=== PATIENT | female | born 1990 | race American Indian/Alaskan Native ===

== ENCOUNTER 2017-07-30 11:26 | Day surgery (SDC) | payer MEDICAID ==
[~2017-07-30 11:26] MED LIST: AK-Dilate ONE; AK-Dilate OS ONE; IOPIDINE ONE; IOPIDINE OS ONE; MYDRIACYL ONE; MYDRIACYL OS ONE
[2017-07-30] MEDS ORDERED: AK-Dilate OS ONE (11:54)
[2017-07-30] MEDS ORDERED: MYDRIACYL OS ONE (11:54)
[2017-07-30] MEDS ORDERED: IOPIDINE OS ONE ×2 (11:54→12:51)
[2017-07-30 14:19] VITALS: BP 120/64
== END 2017-07-30 12:58 | disposition home or self-care (01) ==
LOC: OR 11:26
PROVIDERS: ATTEND Ophthalmology
DX: H26.492 Other secondary cataract, left eye (principal)
CPT/HCPCS: 82962

== ENCOUNTER 2018-02-13 12:53 | Inpatient (IN) | payer MEDICAID ==
[2018-02-13 14:07] LABS: Bilirubin,Urine NEG (Negative); Blood,Urine NEG (Negative); Color,Urine Yellow (Yellow); Urobilinogen,Urine < 2.0 mg/dL (<2.0)
[2018-02-13 14:08] LABS: HCG Qualitative,Urine Negative (Negative)
[2018-02-13 14:10] LABS: Hemoglobin 10.1 gm/dl (10.1-14.3); Mean Corpuscular HGB Conc 33 % (30-34); Mean Corpuscular Hemoglobin 27 pg (28-32); Mean Corpuscular Volume 84 fl (79-97); Platelet Count 221 K/mm3 (140-440); Red Blood Count 3.69 M/mm3 (3.65-5.03); Red Cell Distribution Width 14.7 % (13.2-15.2)
[2018-02-13 14:15] LABS: Alanine Aminotransferase 13 units/L (7-56); Albumin 2.1 g/dL (3.9-5); BUN/Creatinine Ratio 9; Blood Urea Nitrogen 27 mg/dL (7-17); Hemolysis Index 14
[2018-02-13] MEDS ORDERED: ZOFRAN ONE (15:24)
[2018-02-13] MEDS ORDERED: ZOFRAN IV ONE (15:39)
[2018-02-13] MEDS ORDERED: REGLAN IV ONE (15:39)
[2018-02-13] MEDS ORDERED: NACL 0.9% 1000 ML 1,000 ML IV ONE (15:39)
[2018-02-13] MEDS ORDERED: DILAUDID IV ONE (15:39)
[2018-02-13] MEDS ORDERED: BENADRYL IV ONE (15:39)
--- NOTE | 2018-02-13 15:45 | Emergency Department Report ---
ED N/V/D HPI - General Chief complaint: Nausea/Vomiting/Diarrhea Stated complaint: N&V Time Seen by Provider: 02/13/18 15:32 Source: patient, old records reviewed Mode of arrival: Ambulatory Limitations: No Limitations - History of Present Illness Initial comments: 27-year-old female with a past medical history of juvenile diabetes/insulin- dependent, hypertension, chronic renal insufficiency, gastroparesis, and seizures presents also complaining of nausea, vomiting, generalized abdominal pain with by mouth intolerance since this morning. pt has generalized crampy and aching abdominal pain radiating 8/10 in intensity. Pain is constant, worse with palpation, no alleviating factors. No diarrhea reported. Patient had coffee-ground emesis in the ED and denies melena, hematochezia, or allen hematemesis. Patient feels similar to previous gastroparesis episodes in the past. No fever or dysuria reported. Patient's director customer is Dr. Adams. She does have a primary care doctor. She does see incubator operator - Related Data Home Medications Medication Instructions Recorded Confirmed Last Taken Cholecalciferol (Vitamin D3) 50,000 unit PO QWEEK 07/22/17 02/13/18 1 Day Ago [Vitamin D3 10,000 unit] ~07/22/17 Furosemide [Lasix TAB] 40 mg PO DAILY 02/13/18 02/13/18 Unknown Insulin NPH Human Isophane 25 - 30 unit SQ BID 02/13/18 02/13/18 Unknown [Humulin N] hydrALAZINE [Apresoline] 25 mg PO TID 02/13/18 02/13/18 Unknown Allergies Allergy/AdvReac Type Severity Reaction Status Date / Time shellfish derived Allergy Severe Angioedema Verified 07/30/17 14:13 ED Review of Systems ROS: Stated complaint: N&V Other details as noted in HPI Comment: All other systems reviewed and negative ED Past Medical Hx - Past Medical History Previous Medical History?: Yes Hx Hypertension: Yes Hx Diabetes: Yes (Juvenille diabetes) Hx Renal Disease: Yes (Stage 2) Hx Seizures: Yes Hx HIV: No - Surgical History Past Surgical History?: Yes Additional Surgical History: Cataract surgery-bilat. 2013 - Social History Smoking Status: Never Smoker Substance Use Type: Prescribed - Medications Home Medications: Home Medications Medication Instructions Recorded Confirmed Last Taken Type Cholecalciferol (Vitamin D3) 50,000 unit PO QWEEK 07/22/17 02/13/18 1 Day Ago History [Vitamin D3 10,000 unit] ~07/22/17 Furosemide [Lasix TAB] 40 mg PO DAILY 02/13/18 02/13/18 Unknown History Insulin NPH Human Isophane 25 - 30 unit SQ BID 02/13/18 02/13/18 Unknown History [Humulin N] hydrALAZINE [Apresoline] 25 mg PO TID 02/13/18 02/13/18 Unknown History ED Physical Exam - General Limitations: No Limitations - Other Other exam information: General: Crying, actively vomiting Head exam: Atraumatic, normocephalic Eyes exam: Normal appearance ENT: Dry mucous members Neck exam: Normal inspection, full range of motion, no meningismus nontender Respiratory exam: Clear to auscultation bilateral, no wheezes, rales, crackles Cardiovascular: Tachycardic regular rhythm Abdomen: Soft, nondistended, generalized tenderness greatest in the upper abdominal area. Bowel sounds normal. Active vomiting coffee grounds noted Extremity: Full range of motion normal inspection no deformity Back: Normal Inspection, full range of motion, no tenderness Neurologic: Alert, oriented x3, cranial nerves intact, no motor or sensory deficit Skin: Warm, dry, intact ED Course Vital Signs 02/13/18 02/13/18 02/13/18 13:24 17:03 17:10 Temperature 98.8 F Pulse Rate 120 H 111 H 117 H Respiratory 18 13 14 Rate Blood Pressure 149/100 201/122 Blood Pressure [Left] O2 Sat by Pulse 98 98 Oximetry 02/13/18 02/13/18 02/13/18 17:19 17:20 17:30 Temperature Pulse Rate 109 H 110 H Respiratory 18 16 17 Rate Blood Pressure 193/131 191/121 Blood Pressure [Left] O2 Sat by Pulse 92 98 Oximetry 02/13/18 02/13/18 02/13/18 17:40 17:50 18:00 Temperature Pulse Rate 110 H 109 H 108 H Respiratory 17 17 16 Rate Blood Pressure 191/121 190/121 188/123 Blood Pressure [Left] O2 Sat by Pulse 98 97 97 Oximetry 02/13/18 02/13/18 02/13/18 18:10 18:20 18:30 Temperature Pulse Rate 106 H 111 H 105 H Respiratory 17 17 16 Rate Blood Pressure 188/123 192/126 185/123 Blood Pressure [Left] O2 Sat by Pulse 97 93 97 Oximetry 02/13/18 02/13/18 02/13/18 18:40 18:50 19:00 Temperature Pulse Rate 109 H 107 H 107 H Respiratory 19 16 17 Rate Blood Pressure 185/123 188/125 192/126 Blood Pressure [Left] O2 Sat by Pulse 97 97 97 Oximetry 02/13/18 02/13/18 02/13/18 19:10 19:20 19:30 Temperature Pulse Rate 104 H 105 H 106 H Respiratory 16 17 17 Rate Blood Pressure 192/126 188/124 187/125 Blood Pressure [Left] O2 Sat by Pulse 98 98 98 Oximetry 02/13/18 02/13/18 02/13/18 19:40 19:50 20:00 Temperature Pulse Rate 107 H 113 H 111 H Respiratory 16 13 13 Rate Blood Pressure 187/125 186/116 178/107 Blood Pressure [Left] O2 Sat by Pulse 98 95 97 Oximetry 02/13/18 02/13/18 02/13/18 20:10 20:20 20:21 Temperature Pulse Rate 116 H 112 H Respiratory 14 17 18 Rate Blood Pressure 178/107 181/111 Blood Pressure [Left] O2 Sat by Pulse 95 97 98 Oximetry 02/13/18 02/13/18 02/13/18 20:30 20:40 20:50 Temperature Pulse Rate 120 H 123 H 123 H Respiratory 12 14 14 Rate Blood Pressure 153/97 153/97 181/115 Blood Pressure [Left] O2 Sat by Pulse 98 98 98 Oximetry 02/13/18 02/13/18 02/13/18 21:00 21:10 21:11 Temperature Pulse Rate 121 H 121 H 118 H Respiratory 13 12 16 Rate Blood Pressure 157/104 157/104 Blood Pressure 157/104 [Left] O2 Sat by Pulse 96 98 98 Oximetry 02/13/18 02/13/18 21:20 21:30 Temperature Pulse Rate 118 H 119 H Respiratory 13 13 Rate Blood Pressure 149/90 155/89 Blood Pressure [Left] O2 Sat by Pulse 98 98 Oximetry - Consultations Consultation #1: 02/13/18 16:[address] Patel national accounts sales for Dr. Pichardo. Agrees to consult on patient for acute on chronic renal insufficiency. - EJ/Peripheral Line Neck L Time Out Performed: Yes Indications: nurses unable to establis Skin Cleansed in Sterile Fashion: Yes Size: 20 Dressing Placed: Tegaderm, tape Patient Tolerated Procedure: well Additional Comments: failed attempt at right EJ initially ED Medical Decision Making - Lab Data Result diagrams: 02/14/18 07:42 02/15/18 05:32 Lab Results 02/13/18 02/13/18 02/13/18 Range/Units 13:36 13:36 Unknown WBC 3.9 L (4.5-11.0) K/mm3 RBC 3.69 (3.65-5.03) M/mm3 Hgb 10.1 (10.1-14.3) gm/dl Hct 31.0 (30.3-42.9) % MCV 84 (79-97) fl MCH 27 L (28-32) pg MCHC 33 (30-34) % RDW 14.7 (13.2-15.2) % Plt Count 221 (140-440) K/mm3 Lymph % (Auto) [place]el [place] % (Auto) Heel [place]acker Eos % (Auto) [place]el [place] Baso % (Auto) Heel Packer Lymph # Heel Packer [place] # Heel Packer Eos # Heel Packer Baso # Heel Packer Seg Neutrophils % Heel Packer Seg Neutrophils # Heel Packer Sodium 145 (137-145) mmol/L Potassium 3.4 L (3.6-5.0) mmol/L Chloride 110.9 H (98-107) mmol/L Carbon Dioxide 20 L (22-30) mmol/L Anion Gap 18 mmol/L BUN 27 H (7-17) mg/dL Creatinine 3.0 H (0.7-1.2) mg/dL Estimated GFR 23 ml/min BUN/Creatinine Ratio 9 % Glucose 116 H (65-100) mg/dL Calcium 8.0 L (8.4-10.2) mg/dL Total Bilirubin < 0.20 (0.1-1.2) mg/dL AST 13 (5-40) units/L ALT 13 (7-56) units/L Alkaline Phosphatase 76 (35-129) units/L Total Protein 5.1 L (6.3-8.2) g/dL Albumin 2.1 L (3.9-5) g/dL Albumin/Globulin Ratio 0.7 % Lipase (13-60) units/L Urine Color Yellow (Yellow) Urine Turbidity Clear (Clear) Urine pH 7.0 (5.0-7.0) Ur Specific [place] 1.011 (1.003-1.030) Urine Protein 100 mg/dl (Negative) mg/dL Urine Glucose (UA) 150 (Negative) mg/dL Urine Ketones Neg (Negative) mg/dL Urine Blood Neg (Negative) Urine Nitrite Neg (Negative) Urine Bilirubin Neg (Negative) Urine Urobilinogen < 2.0 (<2.0) mg/dL Ur Leukocyte Esterase Neg (Negative) Urine WBC (Auto) 1.0 (0.0-6.0) /HPF Urine RBC (Auto) 3.0 (0.0-6.0) /HPF U Epithel Cells (Auto) < 1.0 (0-13.0) /HPF Urine HCG, Qual Negative (Negative) 02/13/18 Range/Units Unknown WBC (4.5-11.0) K/mm3 RBC (3.65-5.03) M/mm3 Hgb (10.1-14.3) gm/dl Hct (30.3-42.9) % MCV (79-97) fl MCH (28-32) pg MCHC (30-34) % RDW (13.2-15.2) % Plt Count (140-440) K/mm3 Lymph % (Auto) [place] % (Auto) Eos % (Auto) Baso % (Auto) Lymph # [place] # Eos # Baso # Seg Neutrophils % Seg Neutrophils # Sodium (137-145) mmol/L Potassium (3.6-5.0) mmol/L Chloride (98-107) mmol/L Carbon Dioxide (22-30) mmol/L Anion Gap mmol/L BUN (7-17) mg/dL Creatinine (0.7-1.2) mg/dL Estimated GFR ml/min BUN/Creatinine Ratio % Glucose (65-100) mg/dL Calcium (8.4-10.2) mg/dL Total Bilirubin (0.1-1.2) mg/dL AST (5-40) units/L ALT (7-56) units/L Alkaline Phosphatase (35-129) units/L Total Protein (6.3-8.2) g/dL Albumin (3.9-5) g/dL Albumin/Globulin Ratio % Lipase 22 (13-60) units/L Urine Color (Yellow) Urine Turbidity (Clear) Urine pH (5.0-7.0) Ur Specific [place] (1.003-1.030) Urine Protein (Negative) mg/dL Urine Glucose (UA) (Negative) mg/dL Urine Ketones (Negative) mg/dL Urine Blood (Negative) Urine Nitrite (Negative) Urine Bilirubin (Negative) Urine Urobilinogen (<2.0) mg/dL Ur Leukocyte Esterase (Negative) Urine WBC (Auto) (0.0-6.0) /HPF Urine RBC (Auto) (0.0-6.0) /HPF U Epithel Cells (Auto) (0-13.0) /HPF Urine HCG, Qual (Negative) - Medical Decision Making gastroparesis likely cause of symptoms No fever leukocytosis Negative UA Negative ct abd pelvis results pending at dispo Coffee-ground emesis Treated with Protonix IV, Zofran, Reglan, Benadryl, normal saline, and Dilaudid (delay due to lack of Iv access) hypokalemia IV KCL ordered acute on chronic renal failure. Nephro conulted - Differential Diagnosis gastroparesis, pancreatitis, cholecystitis/biliary colic, UTI Critical Care Time: No Critical care attestation.: If time is entered above; I have spent that time in minutes in the direct care of this critically ill patient, excluding procedure time. ED Disposition Clinical Impression: Gastroparesis, Acute on chronic renal insufficiency, Hypokalemia HTN (hypertension) Qualifiers: Hypertension type: essential hypertension Qualified Code(s): I10 - Essential ( primary) hypertension Disposition: OP ADMIT IP TO THIS HOSP Is pt being admited?: Yes Condition: Stable Time of Disposition: 16:36 (Dr Hunter/hosp)
[2018-02-13] MEDS ORDERED: PROTONIX IV ONE (16:00)
[2018-02-13] MEDS: KCL 10MEQ/100ML 10 MEQ/100 ML BAG IV SCH ×2 (17:13→20:53)
--- NOTE | 2018-02-13 17:17 | Cat Scan Report ---
FINAL REPORT EXAM: CT ABDOMEN PELVIS WO CON HISTORY: abd pain n,v hx of renal insuf, gastroparesis TECHNIQUE: Standard unenhanced CT of the abdomen and pelvis. Coronal and sagittal reconstruction was also performed. PRIORS: None. FINDINGS: There is prominence of the right renal collecting system to the distal ureter. However, no obstructing calculus or mass is seen. No bladder calculus is noted. Patient may have had a recently passed calculus with residual edema at the right ureterovesical junction. Within the abdomen, the liver, spleen, pancreas, adrenal glands, and left kidney are unremarkable. Gallstones layer in the gallbladder noted. No evidence for retroperitoneal or pelvic lymphadenopathy is seen. The bowel loops have normal caliber. No soft tissue mass, fluid collection, inflammatory change, or free air is seen within the abdomen or pelvis. The appendix is normal. Within the pelvis, the bladder is unremarkable. The uterus is normal. No evidence for mass or lymphadenopathy is seen in the pelvis. Images through the upper abdomen include the lung bases which demonstrate linear atelectasis or fibrosis in the right middle lobe and lingula anteriorly. There is a pericardial effusion. Bony structures show no focal abnormalities and are intact. IMPRESSION: 1. Prominence of the right renal collecting system is noted which may be due to recently passed calculus or residual edema in the right ureterovesical junction. However, no calculus is seen in the bladder. 2. Cholelithiasis 3. Linear fibrosis or atelectasis right middle lobe and lingula 4. Pericardial effusion.
[2018-02-13] MEDS ORDERED: TYLENOL PO PRN (19:26)
[2018-02-13] MEDS ORDERED: DILAUDID IV PRN (19:26)
--- NOTE | 2018-02-13 19:26 | History and Physical Report ---
History of Present Illness Date of examination: 02/13/18 Date of admission: 02/13/18 Chief complaint: CC Persistent vomiting History of present illness: History of Present Illness 27-year-old female with a past medical history of juvenile diabetes/insulin- dependent, hypertension, chronic renal insufficiency, gastroparesis, and seizures presents acomplaining of nausea, vomiting, generalized abdominal pain with by PO intolerance since this morning. pt has generalized crampy and aching abdominal pain radiating 8/10 in intensity. Pain is constant, worse with palpation, no alleviating factors. No diarrhea reported. Patient had coffee-ground emesis in the ED and denies melena, hematochezia, or allen hematemesis. Patient feels similar to previous gastroparesis episodes in the past. No fever or dysuria reported. Patient's lead solutions architect is Dr. Adams. She does have a primary care doctor. 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 2013 - Social History Smoking Status: Never Smoker Substance Use Type: Prescribed - Medications Home Medications: Home Medications Medication Instructions Recorded Confirmed Last Taken Type Acetaminophen/Codeine [Tylenol 1 tab PO Q6H PRN 07/22/17 07/30/17 1 Day Ago History /Codeine # 3 tab] ~07/22/17 Butalbit/Acetamin/Caff/Codeine 1 - 2 each PO TID PRN 07/22/17 07/30/17 1 Day Ago History [Rozpgw-Ckpiymcodpe-Xxou-Codein] ~07/22/17 Cholecalciferol (Vitamin D3) 50,000 unit PO QWEEK 07/22/17 07/30/17 1 Day Ago History [Vitamin D3 10,000 unit] ~07/22/17 Lisinopril [Zestril TAB] 2.5 mg PO QDAY 07/22/17 07/30/17 1 Day Ago History ~07/22/17 Sucralfate [Carafate] 1 gm PO Q6HR 07/22/17 07/30/17 1 Day Ago History ~07/22/17 levETIRAcetam [Keppra TAB] 1,000 mg PO BID 07/22/17 07/30/17 1 Day Ago History ~07/22/17 Detemir (Nf) [Levemir (Nf)] 10 units SUB-Q QAMDIAB 30 Days 07/27/17 07/30/17 Unknown Rx units Metoclopramide [Reglan TAB] 1 tab PO Q6H PRN #60 tablet 07/27/17 07/30/17 Unknown Rx Metoprolol Xl [Metoprolol 25 mg PO QDAY #30 tablet 07/27/17 07/30/17 Unknown Rx SUCCINATE ER TAB] Pantoprazole [Protonix TAB] 40 mg PO DAILY #30 tablet 07/27/17 07/30/17 Unknown Rx Medications and Allergies Allergies Allergy/AdvReac Type Severity Reaction Status Date / Time shellfish derived Allergy Severe Angioedema Verified 07/30/17 14:13 Home Medications Medication Instructions Recorded Confirmed Last Taken Type Cholecalciferol (Vitamin D3) 50,000 unit PO QWEEK 07/22/17 02/13/18 1 Day Ago History [Vitamin D3 10,000 unit] ~07/22/17 Furosemide [Lasix TAB] 40 mg PO DAILY 02/13/18 02/13/18 Unknown History Insulin NPH Human Isophane 25 - 30 unit SQ BID 02/13/18 02/13/18 Unknown History [Humulin N] hydrALAZINE [Apresoline] 25 mg PO TID 02/13/18 02/13/18 Unknown History Review of Systems All systems: negative Exam - Constitutional Vitals: Temp Pulse Resp BP Pulse Ox 98.8 F 111 H 18 149/100 98 02/13/18 13:24 02/13/18 17:03 02/13/18 17:19 02/13/18 13:24 02/13/18 13:24 General appearance: Present: no acute distress, mild distress, well-nourished - EENT Eyes: Present: PERRL ENT: hearing intact, clear oral mucosa - Neck Neck: Present: supple, normal ROM - Respiratory Respiratory effort: normal Respiratory: bilateral: CTA - Cardiovascular Heart rate: 80 Rhythm: regular Heart Sounds: Present: S1 & S2. Absent: rub, click - Extremities Extremities: no ischemia, pulses intact, pulses symmetrical, No edema Peripheral Pulses: within normal limits - Abdominal General gastrointestinal: Present: soft, non-tender, non-distended, normal bowel sounds Female genitourinary: Present: normal - Rectal Rectal Exam: deferred - Integumentary Integumentary: Present: clear, warm, dry - Musculoskeletal Musculoskeletal: gait normal, strength equal bilaterally - Psychiatric Psychiatric: appropriate mood/affect, intact judgment & insight - Neurologic Neurologic: CNII-XII intact, moves all extremities - Allied Health Allied health notes reviewed: nursing, case management Results - Labs CBC & Chem 7: 02/13/18 13:36 02/13/18 13:36 Labs: Laboratory Last Values WBC 3.9 K/mm3 (4.5-11.0) L 02/13/18 13:36 RBC 3.69 M/mm3 (3.65-5.03) 02/13/18 13:36 Hgb 10.1 gm/dl (10.1-14.3) 02/13/18 13:36 Hct 31.0 % (30.3-42.9) 02/13/18 13:36 MCV 84 fl (79-97) 02/13/18 13:36 MCH 27 pg (28-32) L 02/13/18 13:36 MCHC 33 % (30-34) 02/13/18 13:36 RDW 14.7 % (13.2-15.2) 02/13/18 13:36 Plt Count 221 K/mm3 (140-440) 02/13/18 13:36 Lymph % (Auto) Critical Care Transport Nurse 02/13/18 13:36 [place] % (Auto) Critical Care Transport Nurse 02/13/18 13:36 Eos % (Auto) Critical Care Transport Nurse 02/13/18 13:36 Baso % (Auto) Critical Care Transport Nurse 02/13/18 13:36 Lymph # Critical Care Transport Nurse 02/13/18 13:36 [place] # Critical Care Transport Nurse 02/13/18 13:36 Eos # Critical Care Transport Nurse 02/13/18 13:36 Baso # Critical Care Transport Nurse 02/13/18 13:36 Seg Neutrophils % Critical Care Transport Nurse 02/13/18 13:36 Seg Neutrophils # Critical Care Transport Nurse 02/13/18 13:36 Sodium 145 mmol/L (137-145) 02/13/18 13:36 Potassium 3.4 mmol/L (3.6-5.0) L 02/13/18 13:36 Chloride 110.9 mmol/L (98-107) H 02/13/18 13:36 Carbon Dioxide 20 mmol/L (22-30) L 02/13/18 13:36 Anion Gap 18 mmol/L 02/13/18 13:36 BUN 27 mg/dL (7-17) H 02/13/18 13:36 Creatinine 3.0 mg/dL (0.7-1.2) H 02/13/18 13:36 Estimated GFR 23 ml/min 02/13/18 13:36 BUN/Creatinine Ratio 9 % 02/13/18 13:36 Glucose 116 mg/dL (65-100) H 02/13/18 13:36 Calcium 8.0 mg/dL (8.4-10.2) L 02/13/18 13:36 Total Bilirubin < 0.20 mg/dL (0.1-1.2) 02/13/18 13:36 AST 13 units/L (5-40) 02/13/18 13:36 ALT 13 units/L (7-56) 02/13/18 13:36 Alkaline Phosphatase 76 units/L (35-129) 02/13/18 13:36 Total Protein 5.1 g/dL (6.3-8.2) L 02/13/18 13:36 Albumin 2.1 g/dL (3.9-5) L 02/13/18 13:36 Albumin/Globulin Ratio 0.7 % 02/13/18 13:36 Lipase 22 units/L (13-60) 02/13/18 Unknown Urine Color Yellow (Yellow) 02/13/18 Unknown Urine Turbidity Clear (Clear) 02/13/18 Unknown Urine pH 7.0 (5.0-7.0) 02/13/18 Unknown Ur Specific [place] 1.011 (1.003-1.030) 02/13/18 Unknown Urine Protein 100 mg/dl mg/dL (Negative) 02/13/18 Unknown Urine Glucose (UA) 150 mg/dL (Negative) 02/13/18 Unknown Urine Ketones Neg mg/dL (Negative) 02/13/18 Unknown Urine Blood Neg (Negative) 02/13/18 Unknown Urine Nitrite Neg (Negative) 02/13/18 Unknown Urine Bilirubin Neg (Negative) 02/13/18 Unknown Urine Urobilinogen < 2.0 mg/dL (<2.0) 02/13/18 Unknown Ur Leukocyte Esterase Neg (Negative) 02/13/18 Unknown Urine WBC (Auto) 1.0 /HPF (0.0-6.0) 02/13/18 Unknown Urine RBC (Auto) 3.0 /HPF (0.0-6.0) 02/13/18 Unknown U Epithel Cells (Auto) < 1.0 /HPF (0-13.0) 02/13/18 Unknown Urine HCG, Qual Negative (Negative) 02/13/18 Unknown - Imaging and Cardiology Imaging and Cardiology: CT Abd IMPRESSION: 1. Prominence of the right renal collecting system is noted which may be due to recently passed calculus or residual edema in the right ureterovesical junction. However, no calculus is seen in the bladder. 2. Cholelithiasis 3. Linear fibrosis or atelectasis right middle lobe and lingula 4. Pericardial effusion Assessment and Plan Advance Directives: Yes (Full code) VTE prophylaxis?: Chemical Plan of care discussed with patient/family: Yes - Patient Problems (1) Acute on chronic renal insufficiency Current Visit: Yes Status: Acute Plan to address problem: IV fluids for now Nephrology consult requested (2) Gastroparesis Current Visit: Yes Status: Acute Plan to address problem: IV Zofran and IV Reglan for now NM gastric emptying study if not done before IV fluids for now (3) HTN (hypertension) Current Visit: Yes Status: Chronic Qualifiers: Hypertension type: essential hypertension Qualified Code(s): I10 - Essential (primary) hypertension Plan to address problem: Cont antihypertensives (4) Hypokalemia Current Visit: Yes Status: Acute Plan to address problem: Supplemented (5) IDDM (insulin dependent diabetes mellitus) Current Visit: Yes Status: Chronic Plan to address problem: Ac 6.4 Coverage for now and resume home insulin when she is able to tolerate PO food (6) DVT prophylaxis Current Visit: Yes Status: Acute Plan to address problem: On Heparin
[2018-02-13] MEDS ORDERED: REGLAN IV PRN (19:28)
[2018-02-13] MEDS ORDERED: KCL 10MEQ/100ML 10 MEQ/100 ML BAG IV ONE (20:42)
[2018-02-13] MEDS ORDERED: NACL 0.9% 1000 ML 1,000 ML ONE ×2 (20:42→20:57)
[2018-02-13] MEDS: NACL 0.45% 1000 ML 1,000 ML IV SCH (20:50)
[2018-02-13] MEDS ORDERED: APRESOLINE IV PRN (21:12)
[2018-02-13] MEDS: MORPHINE IV PRN (22:42)
[2018-02-13] MEDS: ZOFRAN IV PRN (22:42)
[2018-02-13] MEDS: HEPARIN SUB-Q SCH (22:42)
[2018-02-13] MEDS: SODIUM CHLORIDE FLUSH SYRINGE 10 ML IV SCH (22:43)
[2018-02-14] MEDS: NACL 0.45% 1000 ML 1,000 ML IV SCH (02:16)
[2018-02-14] MEDS ORDERED: BENADRYL IV ONE (03:13)
[2018-02-14 08:10] LABS: Basophils % (Auto) 0.6 % (0.0-1.8); Hematocrit 31.1 % (30.3-42.9); Hemoglobin 10.2 gm/dl (10.1-14.3); Lymphocytes # (Auto) 1.1 K/mm3 (1.2-5.4); Lymphocytes % (Auto) 16.5 % (13.4-35.0); Mean Corpuscular HGB Conc 33 % (30-34); Mean Corpuscular Hemoglobin 27 pg (28-32); Mean Corpuscular Volume 83 fl (79-97); Monocytes # (Auto) 0.3 K/mm3 (0.0-0.8); Monocytes % (Auto) 3.9 % (0.0-7.3); Platelet Count 266 K/mm3 (140-440); Red Blood Count 3.74 M/mm3 (3.65-5.03); Red Cell Distribution Width 14.6 % (13.2-15.2)
[2018-02-14] MEDS: APRESOLINE PO SCH ×3 (08:11→20:14)
[2018-02-14] MEDS: MORPHINE IV PRN ×3 (08:12→19:07)
[2018-02-14 08:38] LABS: Alanine Aminotransferase 11 units/L (7-56); Albumin 2.1 g/dL (3.9-5); BUN/Creatinine Ratio 10; Blood Urea Nitrogen 30 mg/dL (7-17); Calcium 8.2 mg/dL (8.4-10.2); Hemolysis Index 8
[2018-02-14] MEDS: KCL 10MEQ/100ML 10 MEQ/100 ML BAG IV SCH ×4 (10:17→13:36)
[2018-02-14] MEDS: HEPARIN SUB-Q SCH ×2 (10:17→22:36)
[2018-02-14] MEDS: SODIUM CHLORIDE FLUSH SYRINGE 10 ML IV SCH ×2 (11:30→22:37)
--- NOTE | 2018-02-14 11:47 | Progress Note ---
Assessment and Plan Assessment and plan: 27-year-old female with a past medical history of juvenile diabetes/insulin- dependent, hypertension, chronic renal insufficiency, gastroparesis, and seizures presents acomplaining of nausea, vomiting, generalized abdominal pain with by PO intolerance CT Abd /pelvis 1. Prominence of the right renal collecting system is noted which may be due to recently passed calculus or residual edema in the right ureterovesical junction. However, no calculus is seen in the bladder. * 2. Cholelithiasis 3. Linear fibrosis or atelectasis right middle lobe and lingula * 4. Pericardial effusion Assessment and Plan (1) Acute on chronic renal insufficiency: CKD stage 3 IV fluids Nephrology consult requested (2) Gastroparesis previously confirmed on NM gastric emptying study IV Zofran and IV Reglan for now IV fluids for now, ADAT (3) HTN (hypertension) Cont antihypertensives (4) Hypokalemia Current Visit: Yes Status: Acute Plan to address problem: Supplemented (5) IDDM (insulin dependent diabetes mellitus) Ac 6.4 continue Insulins dispo; dc home when tolerating po History Interval history: still co n/v but claims internval improvement no diarrhea, no cp, no sob, no fever, no ams Hospitalist Physical - Constitutional Vitals: Temp Pulse Resp BP Pulse Ox 98.5 F 130 H 20 154/100 99 02/14/18 07:51 02/14/18 08:11 02/14/18 07:51 02/14/18 08:11 02/14/18 07:51 General appearance: Present: no acute distress, mild distress, well-nourished - EENT Eyes: Present: PERRL ENT: hearing intact - Neck Neck: Present: supple - Respiratory Respiratory effort: normal Respiratory: bilateral: CTA - Cardiovascular Rhythm: regular Heart Sounds: Present: S1 & S2 - Extremities Extremities: no ischemia Peripheral Pulses: within normal limits - Abdominal General gastrointestinal: soft, non-tender - Integumentary Integumentary: Present: clear, warm, dry - Psychiatric Psychiatric: appropriate mood/affect, intact judgment & insight - Neurologic Neurologic: CNII-XII intact, no focal deficits, moves all extremities Results - Labs CBC & Chem 7: 02/14/18 07:42 02/14/18 07:42 Labs: Laboratory Last Values WBC 6.6 K/mm3 (4.5-11.0) 02/14/18 07:42 RBC 3.74 M/mm3 (3.65-5.03) 02/14/18 07:42 Hgb 10.2 gm/dl (10.1-14.3) 02/14/18 07:42 Hct 31.1 % (30.3-42.9) 02/14/18 07:42 MCV 83 fl (79-97) 02/14/18 07:42 MCH 27 pg (28-32) L 02/14/18 07:42 MCHC 33 % (30-34) 02/14/18 07:42 RDW 14.6 % (13.2-15.2) 02/14/18 07:42 Plt Count 266 K/mm3 (140-440) 02/14/18 07:42 Lymph % (Auto) 16.5 % (13.4-35.0) 02/14/18 07:42 [place] % (Auto) 3.9 % (0.0-7.3) 02/14/18 07:42 Eos % (Auto) 0.0 % (0.0-4.3) 02/14/18 07:42 Baso % (Auto) 0.6 % (0.0-1.8) 02/14/18 07:42 Lymph # 1.1 K/mm3 (1.2-5.4) L 02/14/18 07:42 [place] # 0.3 K/mm3 (0.0-0.8) 02/14/18 07:42 Eos # 0.0 K/mm3 (0.0-0.4) 02/14/18 07:42 Baso # 0.0 K/mm3 (0.0-0.1) 02/14/18 07:42 Seg Neutrophils % 79.0 % (40.0-70.0) H 02/14/18 07:42 Seg Neutrophils # 5.2 K/mm3 (1.8-7.7) 02/14/18 07:42 Sodium 146 mmol/L (137-145) H 02/14/18 07:42 Potassium 3.3 mmol/L (3.6-5.0) L 02/14/18 07:42 Chloride 111.8 mmol/L (98-107) H 02/14/18 07:42 Carbon Dioxide 20 mmol/L (22-30) L 02/14/18 07:42 Anion Gap 18 mmol/L 02/14/18 07:42 BUN 30 mg/dL (7-17) H 02/14/18 07:42 Creatinine 3.1 mg/dL (0.7-1.2) H 02/14/18 07:42 Estimated GFR 22 ml/min 02/14/18 07:42 BUN/Creatinine Ratio 10 % 02/14/18 07:42 Glucose 127 mg/dL (65-100) H 02/14/18 07:42 POC Glucose 122 (70-105) H 02/14/18 11:15 Hemoglobin A1c 6.4 % (4-6) H 02/13/18 13:36 Calcium 8.2 mg/dL (8.4-10.2) L 02/14/18 07:42 Total Bilirubin < 0.20 mg/dL (0.1-1.2) 02/14/18 07:42 AST 11 units/L (5-40) 02/14/18 07:42 ALT 11 units/L (7-56) 02/14/18 07:42 Alkaline Phosphatase 73 units/L (35-129) 02/14/18 07:42 Total Protein 5.0 g/dL (6.3-8.2) L 02/14/18 07:42 Albumin 2.1 g/dL (3.9-5) L 02/14/18 07:42 Albumin/Globulin Ratio 0.7 % 02/14/18 07:42 Lipase 22 units/L (13-60) 02/13/18 Unknown Urine Color Yellow (Yellow) 02/13/18 Unknown Urine Turbidity Clear (Clear) 02/13/18 Unknown Urine pH 7.0 (5.0-7.0) 02/13/18 Unknown Ur Specific [place] 1.011 (1.003-1.030) 02/13/18 Unknown Urine Protein 100 mg/dl mg/dL (Negative) 02/13/18 Unknown Urine Glucose (UA) 150 mg/dL (Negative) 02/13/18 Unknown Urine Ketones Neg mg/dL (Negative) 02/13/18 Unknown Urine Blood Neg (Negative) 02/13/18 Unknown Urine Nitrite Neg (Negative) 02/13/18 Unknown Urine Bilirubin Neg (Negative) 02/13/18 Unknown Urine Urobilinogen < 2.0 mg/dL (<2.0) 02/13/18 Unknown Ur Leukocyte Esterase Neg (Negative) 02/13/18 Unknown Urine WBC (Auto) 1.0 /HPF (0.0-6.0) 02/13/18 Unknown Urine RBC (Auto) 3.0 /HPF (0.0-6.0) 02/13/18 Unknown U Epithel Cells (Auto) < 1.0 /HPF (0-13.0) 02/13/18 Unknown Urine HCG, Qual Negative (Negative) 02/13/18 Unknown
[2018-02-14] MEDS: ZOFRAN IV PRN (12:38)
[2018-02-14] MEDS: HumaLOG SUB-Q SCH ×2 (12:45→17:57)
[2018-02-14] MEDS ORDERED: REGLAN IV PRN (13:00)
[2018-02-14] MEDS: KCL 40 MEQ in NACL 0.45% 1000 ML 1,000 ML IV SCH (13:36)
[2018-02-14] MEDS: PERCOCET 5/325 PO PRN ×2 (13:43→20:13)
--- NOTE | 2018-02-14 19:59 | Consultation ---
History of Present Illness - Reason for Consult Consult date: 02/14/18 acute renal failure Requesting physician: LAURIE NUNN - History of Present Illness 27-year-old lady who is known to our group (has seen Dr. Adams in the past) with history of type 1 diabetes mellitus, hypertension and chronic kidney disease diagnosed since last year. Patient is at stage 3 chronic kidney disease. Presents on account of today's history of abdominal pain, nausea and vomiting. Patient does have a history of gastroparesis. She describes the pain as a constant sharp pain in epigastrium and right flank radiating to her back. Rates it as an 8/t 10 and it's aggravated by sitting up for a while and only relieved with intravenous analgesics so far. She had an episode of coffee- ground emesis in the emergency room. No melena or hematochezia. BUN and creatinine are found to be elevated at 27/3.0 mg/dL. Potassium was low at 3.5 mmol per liter. I'm consulted to assist in managing these. Creatinine was 2 mg /dL in July 2017. Patient has been poorly compliant with outpatient follow -up. Past History Past Medical History: diabetes (Type 1), hypertension, renal failure, seizures Past Surgical History: cataract removal, Social history: single, lives with family (mother, boyfriend and her 5-year-old son). denies: smoking, alcohol abuse, prescription drug abuse Family history: diabetes (mother), hypertension (mother), other (Her father has a history of congestive heart failure. She has 3 brothers and 2 sisters who are in good health) Medications and Allergies Allergies Allergy/AdvReac Type Severity Reaction Status Date / Time shellfish derived Allergy Severe Angioedema Verified 07/30/17 14:13 Home Medications Medication Instructions Recorded Confirmed Last Taken Type Cholecalciferol (Vitamin D3) 50,000 unit PO QWEEK 07/22/17 02/13/18 1 Day Ago History [Vitamin D3 10,000 unit] ~07/22/17 Furosemide [Lasix TAB] 40 mg PO DAILY 02/13/18 02/13/18 Unknown History Insulin NPH Human Isophane 25 - 30 unit SQ BID 02/13/18 02/13/18 Unknown History [Humulin N] hydrALAZINE [Apresoline] 25 mg PO TID 02/13/18 02/13/18 Unknown History Active Meds: Active Medications Acetaminophen (Tylenol) 650 mg PO Q4H PRN PRN Reason: Pain MILD(1-3)/Fever >100.5/RODRIGUEZ Heparin Sodium (Porcine) (Heparin) 5,000 unit SUB-Q Q12HR [facility] Last Admin: 02/14/18 10:17 Dose: 5,000 unit Hydralazine HCl (Apresoline) 5 mg IV Q6H PRN PRN Reason: Hypertension Last Admin: 02/14/18 02:22 Dose: 5 mg Hydralazine HCl (Apresoline) 25 mg PO TID [facility] Last Admin: 02/14/18 14:28 Dose: 25 mg Hydromorphone HCl (Dilaudid) 0.5 mg IV Q3H PRN PRN Reason: Pain , Severe (7-10) Potassium Chloride 40 meq/ (Sodium Chloride) 1,020 mls @ 100 mls/hr IV DIRECT [facility] Last Admin: 02/14/18 13:36 Dose: 100 mls/hr Insulin Human Lispro (Humalog) 0 unit SUB-Q Q6HR [facility]; Protocol Last Admin: 02/14/18 17:57 Dose: Not Given Metoclopramide HCl (Reglan) 5 mg IV Q6H PRN PRN Reason: Nausea And Vomiting Morphine Sulfate (Morphine) 2 mg IV Q4H PRN PRN Reason: Pain, Moderate (4-6) Last Admin: 02/14/18 19:07 Dose: 2 mg Ondansetron HCl (Zofran) 4 mg IV Q8H PRN PRN Reason: Nausea And Vomiting Last Admin: 02/14/18 12:38 Dose: 4 mg Oxycodone/Acetaminophen (Percocet 5/325) 1 tab PO Q6H PRN PRN Reason: Pain, Moderate (4-6) Last Admin: 02/14/18 13:43 Dose: 1 tab Sodium Chloride (Sodium Chloride Flush Syringe 10 Ml) 10 ml IV BID [facility] Last Admin: 02/14/18 11:30 Dose: 10 ml Sodium Chloride (Sodium Chloride Flush Syringe 10 Ml) 10 ml IV PRN PRN PRN Reason: LINE FLUSH Review of Systems All systems: negative (Constitutional: She admits to good fever and chills. No anorexia or weight loss. HEENT: She admits to bouts of throat and sinus drainage. No hearing or vision impairment . Cardiovascular: No chest pain, but she admits to shortness of breath sometimes with palpitations advised him to swelling. Respiratory: Complains of cough with yellow sputum and sometimes hemoptysis. No wheezing. Gastrointestinal: See history of present illness. Genitourinary: No frequency urgency dysuria or hematuria. hematologic: No abnormal bleeding or bruising. Integumentary: Admits to itching but no rash. Neurological: Admits to headache. No focal weakness or numbness, no syncope . Her last seizure was about 2 months ago. Endocrine: blood sugars in the 90s to 120s Musculoskeletal: Admits to joint pain and stiffness in legs. Psychiatry: Admits to anxiety but no depression) Exam - Vital Signs Vital signs: Vital Signs Temp Pulse Resp BP Pulse Ox 98.8 F 120 H 18 149/100 98 02/13/18 13:24 02/13/18 13:24 02/13/18 13:24 02/13/18 13:24 02/13/18 13:24 - Physical Exam Narrative exam: Young -[place] female lying in bed in no acute distress HEENT: NCAT, pink oral mucous membrane Neck: Supple, no venous distention CVS: S1S2 RRR with no murmur, rub or gallop Chest: Clear to auscultation Abdomen: Protuberant, soft, mild to moderate epigastric tenderness, no organomegaly, bowel sounds are present Extremities: Trace edema both legs, no clubbing Skin: Warm and dry, no rash Neuro: Awake, alert no focal deficits Results - Lab Results 02/14/18 07:42 02/14/18 07:42 Most recent lab results Calcium 8.2 mg/dL (8.4-10.2) L 02/14/18 07:42 Assessment and Plan - Patient Problems (1) Acute on chronic renal insufficiency Current Visit: Yes Status: Acute Plan to address problem: Acute kidney injury is prerenal azotemia versus acute tubular necrosis secondary to volume depletion. Get urine studies. Follow up kidney ultrasound. CONTINUE VOLUME Repletion. MONITOR ELECTROLYTES AND RENAL FUNCTION. (2) Type 1 diabetes mellitus with diabetic nephropathy Current Visit: Yes Status: Acute Plan to address problem: Patient with proteinuria suggestive of baseline diabetic nephropathy. (3) Hypertensive chronic kidney disease with stage 1 through stage 4 chronic kidney disease, or unspecified chronic kidney disease Current Visit: Yes Status: Acute Plan to address problem: BP is not controlled probably secondary to intolerance of oral medications. Give medications intravenously and restart oral medications. Follow blood pressure and adjust medications as indicated (4) Gastroparesis Current Visit: Yes Status: Acute Plan to address problem: Continue antiemetics and further management by hospitalist (5) Hypokalemia Current Visit: Yes Status: Acute Plan to address problem: Supplement potassium and follow level
[2018-02-14] MEDS ORDERED: PROTONIX IV PRN (21:28)
[2018-02-15] MEDS: MORPHINE IV PRN ×3 (00:28→16:02)
[2018-02-15] MEDS: SODIUM CHLORIDE FLUSH SYRINGE 10 ML IV PRN ×2 (00:34→07:06)
[2018-02-15] MEDS: HumaLOG SUB-Q SCH ×4 (00:34→19:05)
[2018-02-15] MEDS: PERCOCET 5/325 PO PRN ×2 (06:34→19:10)
[2018-02-15 06:38] LABS: Calcium 7.8 mg/dL (8.4-10.2)
[2018-02-15] MEDS: KCL 40 MEQ in NACL 0.45% 1000 ML 1,000 ML IV SCH (06:57)
[2018-02-15 08:14] LABS: Creatinine,Urine 99.7 mg/dL (0.1-20.0)
[2018-02-15] MEDS: APRESOLINE PO SCH ×3 (08:52→19:04)
[2018-02-15] MEDS: ZOFRAN IV PRN (09:29)
[2018-02-15] MEDS: SODIUM CHLORIDE FLUSH SYRINGE 10 ML IV SCH (11:48)
[2018-02-15] MEDS: HEPARIN SUB-Q SCH (11:48)
[2018-02-15] MEDS ORDERED: NORMODYNE IV PRN ×2 (14:46→16:46)
--- NOTE | 2018-02-15 16:44 | Progress Note ---
Assessment and Plan - Patient Problems (1) Acute on chronic renal insufficiency Current Visit: Yes Status: Acute Plan to address problem: Acute kidney injury is prerenal azotemia versus acute tubular necrosis secondary to volume depletion with probable right hydronephrosis which is resolving. Get kidney ultrasound. CONTINUE VOLUME Repletion. MONITOR ELECTROLYTES AND RENAL FUNCTION. (2) Type 1 diabetes mellitus with diabetic nephropathy Current Visit: Yes Status: Acute Plan to address problem: Patient with proteinuria suggestive of baseline diabetic nephropathy. (3) Hypertensive chronic kidney disease with stage 1 through stage 4 chronic kidney disease, or unspecified chronic kidney disease Current Visit: Yes Status: Acute Plan to address problem: BP is not controlled probably secondary to intolerance of oral medications. Give medications intravenously and restart oral medications. Follow blood pressure and adjust medications as indicated (4) Gastroparesis Current Visit: Yes Status: Acute Plan to address problem: Continue antiemetics and further management by hospitalist (5) Hypokalemia Current Visit: Yes Status: Acute Plan to address problem: Supplement potassium and follow level Subjective Date of service: 02/15/18 Principal diagnosis: acute kidney injury Interval history: Patient seen lying in bed. Still complaining of abdominal pain and right flank pain. "If the stone is gone, Why am I still hurting?" She states. Objective - Exam Narrative Exam: Young -[place] female lying in bed in no acute distress HEENT: NCAT, pink oral mucous membrane Neck: Supple, no venous distention CVS: S1S2 RRR with no murmur, rub or gallop Chest: Clear to auscultation Abdomen: Protuberant, soft, mild to moderate epigastric tenderness, no organomegaly, bowel sounds are present Extremities: Trace edema both legs, no clubbing Skin: Warm and dry, no rash Neuro: Awake, alert no focal deficits - Vital Signs Vital signs: Vital Signs - 12hr 02/15/18 02/15/18 02/15/18 08:24 12:18 13:54 Temperature 98.1 F Pulse Rate 114 H Respiratory 20 18 Rate Blood Pressure 156/92 179/115 O2 Sat by Pulse 97 Oximetry 02/15/18 02/15/18 13:57 16:02 Temperature Pulse Rate 112 H Respiratory 18 Rate Blood Pressure 179/115 O2 Sat by Pulse Oximetry - Lab 02/14/18 07:42 02/15/18 05:32 Most recent lab results Calcium 7.8 mg/dL (8.4-10.2) L 02/15/18 05:32 Phosphorus 5.60 mg/dL (2.5-4.5) H 02/15/18 05:32 Magnesium 1.90 mg/dL (1.7-2.3) 02/15/18 05:32 Urine Creatinine 99.7 mg/dL (0.1-20.0) H 02/14/18 06:20 Urine Sodium 35 mmol/L 02/14/18 06:20 Urine Total Protein 66 mg/dL (5-11.8) H 02/14/18 06:20
--- NOTE | 2018-02-15 17:25 | Progress Note ---
Assessment and Plan Assessment and plan: Patient is a 27-year-old female with a past medical history of insulin- dependent diabetes mellitus, hypertension, chronic renal insufficiency, gastroparesis, and seizures disorder who presents with nausea, vomiting, generalized abdominal pain and inability to tolerate PO intake CT Abd /pelvis w/o contrast reported as 1. Prominence of the right renal collecting system is noted which may be due to recently passed calculus or residual edema in the right ureterovesical junction. However, no calculus is seen in the bladder. 2. Cholelithiasis 3. Linear fibrosis or atelectasis right middle lobe and lingula 4. Pericardial effusion -Acute on chronic renal insufficiency: CKD stage 3, vasomotor nephropathy, poa IV fluids, Nephrology consult appreciated -Gastroparesis previously confirmed on NM gastric emptying study IV Zofran and IV Reglan for now IV fluids for now, ADAT -HTN (hypertension) urgency added iv labetalol -Hypokalemia Current Visit: Yes Status: Acute Plan to address problem: Supplemented -Nephrolithiasis, passed calculus per CT - IDDM (insulin dependent diabetes mellitus) with nephropathy Ac 6.4 continue Insulins dispo; dc home when tolerating po and bp is better. History Interval history: Patient was seen and examined. Follow-up on current diagnosis of abdominal pain and nausea vomiting which is still present. Overnight uneventful. Patient denies any chest pain, shortness breath, severe headaches. Imaging, nursing note, chart, labs and old chart reviewed. Discussed with patient. Hospitalist Physical - Physical exam Narrative exam: GEN: WDWN, NAD, AWAKE, ALERT, ORIENTATED 3 HEENT: NCAT, EOMI, PERRL, OP Clear NECK: supple, no adenopathy, no thyromegaly, no JVD CVS/HEART: Regular tachycardia NORMAL S1S2, pulses present bilaterally CHEST/LUNGS: CTA B, Symmetrical chest expansion, good air entry bilaterally GI/Abdomen: soft, diffuse tenderness, no distention good bowel sounds, no guarding or rebound /Bladder: no suprapubic tenderness, +CVA, no paraspinal tenderness EXT/Skin: no c/c/e, no obvious rash MSK: FROM x 4 Neuro: CN 2-12 grossly intact, no new focal deficits Psych: calm - Constitutional Vitals: Temp Pulse Resp BP Pulse Ox 98.1 F 112 H 18 179/115 97 04/13/18 08:24 02/15/18 13:57 02/15/18 16:02 02/15/18 13:57 02/15/18 08:24 General appearance: Present: no acute distress, mild distress, well-nourished Results - Labs CBC & Chem 7: 02/14/18 07:42 02/15/18 05:32 Labs: Laboratory Last Values WBC 6.6 K/mm3 (4.5-11.0) 02/14/18 07:42 RBC 3.74 M/mm3 (3.65-5.03) 02/14/18 07:42 Hgb 10.2 gm/dl (10.1-14.3) 02/14/18 07:42 Hct 31.1 % (30.3-42.9) 02/14/18 07:42 MCV 83 fl (79-97) 02/14/18 07:42 MCH 27 pg (28-32) L 02/14/18 07:42 MCHC 33 % (30-34) 02/14/18 07:42 RDW 14.6 % (13.2-15.2) 02/14/18 07:42 Plt Count 266 K/mm3 (140-440) 02/14/18 07:42 Lymph % (Auto) 16.5 % (13.4-35.0) 02/14/18 07:42 [place] % (Auto) 3.9 % (0.0-7.3) 02/14/18 07:42 Eos % (Auto) 0.0 % (0.0-4.3) 02/14/18 07:42 Baso % (Auto) 0.6 % (0.0-1.8) 02/14/18 07:42 Lymph # 1.1 K/mm3 (1.2-5.4) L 02/14/18 07:42 [place] # 0.3 K/mm3 (0.0-0.8) 02/14/18 07:42 Eos # 0.0 K/mm3 (0.0-0.4) 02/14/18 07:42 Baso # 0.0 K/mm3 (0.0-0.1) 02/14/18 07:42 Seg Neutrophils % 79.0 % (40.0-70.0) H 02/14/18 07:42 Seg Neutrophils # 5.2 K/mm3 (1.8-7.7) 02/14/18 07:42 Sodium 140 mmol/L (137-145) 02/15/18 05:32 Potassium 4.0 mmol/L (3.6-5.0) D 02/15/18 05:32 Chloride 106.0 mmol/L (98-107) 02/15/18 05:32 Carbon Dioxide 18 mmol/L (22-30) L 02/15/18 05:32 Anion Gap 20 mmol/L 02/15/18 05:32 BUN 28 mg/dL (7-17) H 02/15/18 05:32 Creatinine 3.3 mg/dL (0.7-1.2) H 02/15/18 05:32 Estimated GFR 20 ml/min 02/15/18 05:32 BUN/Creatinine Ratio 8 % 02/15/18 05:32 Glucose 124 mg/dL (65-100) H 02/15/18 05:32 POC Glucose 143 (70-105) H 02/15/18 11:50 Hemoglobin A1c 6.4 % (4-6) H 02/13/18 13:36 Calcium 7.8 mg/dL (8.4-10.2) L 02/15/18 05:32 Phosphorus 5.60 mg/dL (2.5-4.5) H 02/15/18 05:32 Magnesium 1.90 mg/dL (1.7-2.3) 02/15/18 05:32 Total Bilirubin < 0.20 mg/dL (0.1-1.2) 02/14/18 07:42 AST 11 units/L (5-40) 02/14/18 07:42 ALT 11 units/L (7-56) 02/14/18 07:42 Alkaline Phosphatase 73 units/L (35-129) 02/14/18 07:42 Total Protein 5.0 g/dL (6.3-8.2) L 02/14/18 07:42 Albumin 2.1 g/dL (3.9-5) L 02/14/18 07:42 Albumin/Globulin Ratio 0.7 % 02/14/18 07:42 Lipase 22 units/L (13-60) 02/13/18 Unknown Urine Color Yellow (Yellow) 02/13/18 Unknown Urine Turbidity Clear (Clear) 02/13/18 Unknown Urine pH 7.0 (5.0-7.0) 02/13/18 Unknown Ur Specific [place] 1.011 (1.003-1.030) 02/13/18 Unknown Urine Protein 100 mg/dl mg/dL (Negative) 02/13/18 Unknown Urine Glucose (UA) 150 mg/dL (Negative) 02/13/18 Unknown Urine Ketones Neg mg/dL (Negative) 02/13/18 Unknown Urine Blood Neg (Negative) 02/13/18 Unknown Urine Nitrite Neg (Negative) 02/13/18 Unknown Urine Bilirubin Neg (Negative) 02/13/18 Unknown Urine Urobilinogen < 2.0 mg/dL (<2.0) 02/13/18 Unknown Ur Leukocyte Esterase Neg (Negative) 02/13/18 Unknown Urine WBC (Auto) 1.0 /HPF (0.0-6.0) 02/13/18 Unknown Urine RBC (Auto) 3.0 /HPF (0.0-6.0) 02/13/18 Unknown U Epithel Cells (Auto) < 1.0 /HPF (0-13.0) 02/13/18 Unknown Urine Creatinine 99.7 mg/dL (0.1-20.0) H 02/14/18 06:20 Urine Sodium 35 mmol/L 02/14/18 06:20 Urine Total Protein 66 mg/dL (5-11.8) H 02/14/18 06:20 Urine HCG, Qual Negative (Negative) 02/13/18 Unknown
[2018-02-15] MEDS ORDERED: REGLAN IV PRN (17:28)
[2018-02-15] MEDS ORDERED: ZOFRAN IV PRN (17:28)
[2018-02-15] MEDS ORDERED: AMBIEN PO PRN (21:09)
[2018-02-16] MEDS: KCL 40 MEQ in NACL 0.45% 1000 ML 1,000 ML IV SCH ×2 (01:11→11:58)
[2018-02-16] MEDS: HEPARIN SUB-Q SCH ×2 (01:13→09:25)
[2018-02-16] MEDS: SODIUM CHLORIDE FLUSH SYRINGE 10 ML IV SCH ×2 (01:17→09:28)
[2018-02-16] MEDS: HumaLOG SUB-Q SCH ×3 (01:57→13:10)
[2018-02-16 07:37] LABS: Hematocrit 28.8 % (30.3-42.9); Hemoglobin 9.4 gm/dl (10.1-14.3); Mean Corpuscular HGB Conc 33 % (30-34); Mean Corpuscular Hemoglobin 28 pg (28-32); Mean Corpuscular Volume 85 fl (79-97); Platelet Count 246 K/mm3 (140-440); Red Blood Count 3.37 M/mm3 (3.65-5.03); Red Cell Distribution Width 14.4 % (13.2-15.2)
[2018-02-16 08:07] LABS: Calcium 7.8 mg/dL (8.4-10.2)
[2018-02-16] MEDS: APRESOLINE PO SCH ×2 (08:27→15:26)
[2018-02-16] MEDS: PERCOCET 5/325 PO PRN (09:25)
--- NOTE | 2018-02-16 12:52 | Discharge Summary ---
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 Prominence of the right renal collecting system is noted which may be due to recently passed calculus or residual edema in the right ureterovesical junction. However, no calculus is seen in the bladder. 2. Cholelithiasis 3. Linear fibrosis or atelectasis right middle lobe and lingula 4. Pericardial effusion -Acute on chronic renal insufficiency: CKD stage 3, vasomotor nephropathy, poa IV fluids, Nephrology consult appreciated -Gastroparesis previously confirmed on NM gastric emptying study IV Zofran and IV Reglan for now IV fluids for now, ADAT -HTN (hypertension) urgency added iv labetalol -Hypokalemia Current Visit: Yes Status: Acute Plan to address problem: Supplemented -Nephrolithiasis, passed calculus per CT - IDDM (insulin dependent diabetes mellitus) with nephropathy Ac 6.4 continue Insulins dispo; dc home tolerating po Disposition: DC-01 TO HOME OR SELFCARE Time spent for discharge: 32 minutes Core Measure Documentation - Palliative Care Palliative Care/ Comfort Measures: Not Applicable - Core Measures Any of the following diagnoses?: none - VTE Discharge Requirements Deep Vein Thrombosis/Pulmonary Embolism Present on Admission: No Has pt received <5 days of overlap therapy or INR<2.0: No Anticoagulant overlap therapy prescribed at discharge: No Contraindication No Overlap Therapy order at DC: Not Indicated Exam - Physical Exam Narrative exam: GEN: WDWN, NAD, AWAKE, ALERT, ORIENTATED 3 HEENT: NCAT, EOMI, PERRL, OP Clear NECK: supple, no adenopathy, no thyromegaly, no JVD CVS/HEART: Regular tachycardia NORMAL S1S2, pulses present bilaterally CHEST/LUNGS: CTA B, Symmetrical chest expansion, good air entry bilaterally GI/Abdomen: soft, diffuse tenderness, no distention good bowel sounds, no guarding or rebound /Bladder: no suprapubic tenderness, +CVA, no paraspinal tenderness EXT/Skin: no c/c/e, no obvious rash MSK: FROM x 4 Neuro: CN 2-12 grossly intact, no new focal deficits Psych: calm - Constitutional Vitals: Temp Pulse Resp BP Pulse Ox 98.4 F 97 H 18 152/91 98 02/16/18 07:58 02/16/18 08:27 02/16/18 10:25 02/16/18 08:27 02/16/18 07:58 Plan Activity: other Follow up with: PRIMARY CARE, [Primary Care Provider] - 3-5 Days Prescriptions: oxyCODONE /ACETAMINOPHEN [Percocet 5/325 mg] 1 tab PO Q6H PRN #3 day PRN Reason: Pain , Severe (7-10)
--- NOTE | 2018-02-16 14:09 | Progress Note ---
Assessment and Plan - Patient Problems (1) Acute on chronic renal insufficiency Current Visit: Yes Status: Acute Plan to address problem: Acute kidney injury is prerenal azotemia versus acute tubular necrosis secondary to volume depletion with probable right hydronephrosis which is resolving. Renal function stable. pt can be discharged from renal stand point with outpatient CKD f/u (2) Type 1 diabetes mellitus with diabetic nephropathy Current Visit: Yes Status: Acute Plan to address problem: Patient with proteinuria suggestive of baseline diabetic nephropathy. pt has biopsy proven diabetic nephropathy (3) Hypertensive chronic kidney disease with stage 1 through stage 4 chronic kidney disease, or unspecified chronic kidney disease Current Visit: Yes Status: Acute Plan to address problem: BP improved on current regimen. (4) Gastroparesis Current Visit: Yes Status: Acute Plan to address problem: Continue antiemetics and further management by hospitalist (5) Hypokalemia Current Visit: Yes Status: Acute Plan to address problem: K replete Subjective Date of service: 02/16/18 Principal diagnosis: acute kidney injury Interval history: Pt awake, alert, in NAD Objective - Vital Signs Vital signs: Vital Signs - 12hr 02/16/18 02/16/18 02/16/18 07:58 08:27 10:25 Temperature 98.4 F Pulse Rate 111 H 97 H Respiratory 20 18 Rate Blood Pressure 152/91 152/91 O2 Sat by Pulse 98 Oximetry - General Appearance General appearance: well-developed, well-nourished, appears stated age EENT: ATNC, PERRL, mucous membranes moist Neck: no JVD Respiratory: Present: Clear to Ascultation Cardiology: regular, S1S2 Gastrointestinal: normoactive bowel sounds Integumentary: no rash, other (trace edema b/l LE ) Neurologic: no focal deficit, alert and oriented x3, strength 5/5, CN 3-12 intact Psychiatric: mood/affect appropriate, cooperative - Lab 02/16/18 06:37 02/16/18 06:37 Most recent lab results Calcium 7.8 mg/dL (8.4-10.2) L 02/16/18 06:37 Phosphorus 5.60 mg/dL (2.5-4.5) H 02/15/18 05:32 Magnesium 1.90 mg/dL (1.7-2.3) 02/15/18 05:32 Urine Creatinine 99.7 mg/dL (0.1-20.0) H 02/14/18 06:20 Urine Sodium 35 mmol/L 02/14/18 06:20 Urine Total Protein 66 mg/dL (5-11.8) H 02/14/18 06:20
[2018-02-16 17:02] VITALS: BP 119/65
== END 2018-02-16 18:30 | disposition home or self-care (01) | DRG 73 ==
LOC: ED 12:53 → 3A 19:26
PROVIDERS: ADMIT Internal Medicine; ATTEND Internal Medicine
DX: E10.43 Type 1 diabetes mellitus with diabetic autonomic (poly)neuropathy (principal); N17.0 Acute kidney failure with tubular necrosis; K31.84 Gastroparesis; E87.6 Hypokalemia; N18.3 Chronic kidney disease, stage 3 (moderate); I12.9 Hypertensive chronic kidney disease with stage 1 through stage 4 chronic kidney disease, or unspecified chronic kidney disease; N13.30 Unspecified hydronephrosis; E10.21 Type 1 diabetes mellitus with diabetic nephropathy; Z79.4 Long term (current) use of insulin; Z91.013 Allergy to seafood; Z98.42 Cataract extraction status, left eye; Z98.41 Cataract extraction status, right eye; Z82.49 Family history of ischemic heart disease and other diseases of the circulatory system; Z83.3 Family history of diabetes mellitus; I16.0 Hypertensive urgency
CPT/HCPCS: 36415; 74176; 80048; 80053; 81001; 81025; 82570; 82962; 83036; 83690; 83735; 84100; 84156; 84300; 85025; 85027; 96374; 96375; C9113; J0360; J1170; J1200; J1644; J1815; J2270; J2405; J2765; J3480; J7030

== ENCOUNTER 2018-12-11 09:43 | Emergency (ER) | payer MEDICAID ==
--- NOTE | 2018-12-11 11:12 | Emergency Department Report ---
ED Chest Pain HPI - General Chief Complaint: Chest Pain Stated Complaint: CHEST PAIN Time Seen by Provider: 12/11/18 10:39 Source: patient, EMS Mode of arrival: Stretcher Limitations: No Limitations - History of Present Illness Initial Comments: 28-year-old female who presents to ED complaining of chest pain. Patient states she experienced sharp left-sided chest pain, intermittent, sharp in nature during her dialysis session. Patient states the pain was intermittent, radiated to her back. Denies shortness of breath. Only received less than one hour of dialysis. [facility] dialysis center wanted her to come to the ER to be evaluated for her chest pain. Patient states pain stopped when she finished her dialysis. Patient states she has experienced similar pain during dialysis before. Patient denies chest pain at this time. Resting comfortably on stretcher. -: This morning Onset: during rest, other (during dialysis) Pain Location: left chest Pain Radiation: back Severity: moderate Severity scale (0 -10): 7 Quality: sharp Consistency: intermittent, now resolved Improves With: nothing Worsens With: nothing re: denies: nausea, vomting, diaphoresis, dyspnea Other Symptoms: denies: cough, fever, leg swelling - Related Data Home Medications Medication Instructions Recorded Confirmed Last Taken Furosemide [Lasix TAB] 40 mg PO DAILY 02/13/18 11/04/18 Unknown hydrALAZINE [Apresoline TAB] 50 mg PO TID 02/13/18 11/04/18 Unknown Metoprolol Xl [Metoprolol 50 mg PO QDAY 11/04/18 11/04/18 Unknown SUCCINATE ER TAB] Allergies Allergy/AdvReac Type Severity Reaction Status Date / Time shellfish derived Allergy Severe Angioedema Verified 12/11/18 09:58 Heart Score - HEART Score History: Slightly suspicious EKG: Normal Age: < 45 Risk factors: 1-2 risk factors Troponin: < normal limit HEART Score: 1 ED Review of Systems ROS: Stated complaint: CHEST PAIN Other details as noted in HPI Comment: All other systems reviewed and negative Constitutional: denies: chills, fever Respiratory: denies: cough, shortness of breath Cardiovascular: chest pain Gastrointestinal: denies: nausea, vomiting Musculoskeletal: other (denies leg pain or swelling) ED Past Medical Hx - Past Medical History Hx Hypertension: Yes Hx Congestive Heart Failure: No Hx Diabetes: Yes Hx Renal Disease: Yes Hx Seizures: Yes Hx Asthma: No Hx COPD: No Hx HIV: No - Surgical History Additional Surgical History: Cataract surgery-bilat. 2013 - Social History Smoking Status: Never Smoker Substance Use Type: None - Medications Home Medications: Home Medications Medication Instructions Recorded Confirmed Last Taken Type Furosemide [Lasix TAB] 40 mg PO DAILY 02/13/18 11/04/18 Unknown History hydrALAZINE [Apresoline TAB] 50 mg PO TID 02/13/18 11/04/18 Unknown History Metoprolol Xl [Metoprolol 50 mg PO QDAY 11/04/18 11/04/18 Unknown History SUCCINATE ER TAB] ED Physical Exam - General Limitations: No Limitations General appearance: alert, in no apparent distress - Head Head exam: Present: atraumatic, normocephalic - Eye Eye exam: Present: normal appearance - ENT ENT exam: Present: mucous membranes moist - Neck Neck exam: Present: normal inspection - Respiratory Respiratory exam: Present: normal lung sounds bilaterally. Absent: respiratory distress - Cardiovascular Cardiovascular Exam: Present: regular rate, normal rhythm - GI/Abdominal GI/Abdominal exam: Present: soft. Absent: distended, tenderness - Extremities Exam Extremities exam: Present: normal inspection. Absent: pedal edema, calf tenderness - Neurological Exam Neurological exam: Present: alert, oriented X3 - Psychiatric Psychiatric exam: Present: normal affect, normal mood - Skin Skin exam: Present: warm, dry, intact, normal color ED Course Vital Signs 12/11/18 12/11/18 12/11/18 09:55 09:58 10:00 Temperature 98 F Pulse Rate 102 H 87 92 H Respiratory 20 20 19 Rate Blood Pressure 168/94 158/90 O2 Sat by Pulse 99 98 Oximetry 12/11/18 12/11/18 12/11/18 10:15 10:30 10:45 Temperature Pulse Rate 87 88 88 Respiratory 12 12 19 Rate Blood Pressure 147/87 182/104 174/104 O2 Sat by Pulse 99 99 98 Oximetry 12/11/18 12/11/18 12/11/18 11:00 11:16 11:30 Temperature Pulse Rate 89 Respiratory 16 Rate Blood Pressure 152/76 165/75 176/99 O2 Sat by Pulse 99 100 89 Oximetry 12/11/18 11:46 Temperature Pulse Rate Respiratory Rate Blood Pressure 157/94 O2 Sat by Pulse 98 Oximetry ED Medical Decision Making - Lab Data Result diagrams: 12/11/18 11:17 12/11/18 11:17 - EKG Data -: EKG Interpreted by Me EKG shows normal: sinus rhythm, axis, intervals, QRS complexes, ST-T waves Rate: normal - EKG Data Interpretation: no acute changes - Radiology Data Radiology results: report reviewed, image reviewed - Medical Decision Making 28-year-old female with chest pain during dialysis today. Chest pain now resolved. Patient states she has previously experienced chest pain with dialys is. EKG and troponin normal. D-dimer was slightly elevated so VQ scan was ordered. VQ scan was normal. Patient did not get completely dialyzed today. However chest x-ray negative, patient not hypoxic, no respiratory distress noted. Potassium level is normal. Emergent dialysis not indicated at this time. Patient advised to follow up with her industrial painter and her dialysis center. Return precautions given. - Differential Diagnosis dehydration, ACS, PE Critical care attestation.: If time is entered above; I have spent that time in minutes in the direct care of this critically ill patient, excluding procedure time. ED Disposition Clinical Impression: Chest pain Disposition: DC-01 TO HOME OR SELFCARE Is pt being admited?: No Condition: Stable Instructions: Chest Pain (ED) Referrals: PRIMARY CARE, [Referring] - 3-5 Days Time of Disposition: 14:07
[2018-12-11 11:42] LABS: Eosinophils # (Auto) 0.3 K/mm3 (0.0-0.4); Eosinophils % (Auto) 5.7 % (0.0-4.3); Hemoglobin 11.4 gm/dl (10.1-14.3); Lymphocytes # (Auto) 1.6 K/mm3 (1.2-5.4); Lymphocytes % (Auto) 32.2 % (13.4-35.0); Mean Corpuscular HGB Conc 32 % (30-34); Mean Corpuscular Volume 94 fl (79-97); Monocytes # (Auto) 0.5 K/mm3 (0.0-0.8); Monocytes % (Auto) 10.8 % (0.0-7.3); Platelet Count 159 K/mm3 (140-440); Red Blood Count 3.86 M/mm3 (3.65-5.03); Red Cell Distribution Width 15.4 % (13.2-15.2)
--- NOTE | 2018-12-11 11:42 | XRay Report ---
AP CHEST: HISTORY: Chest pain Borderline heart size and mild pulmonary venous congestion have developed since the AP chest dated 07/22/17. The lungs are clear. No pleural effusion or pneumothorax. Right IJ dialysis catheter terminates in the superior right atrium. IMPRESSION: Borderline heart size and mild pulmonary venous congestion.
[2018-12-11 11:57] VITALS: BP 157/94
[2018-12-11 12:05] LABS: Calcium 8.8 mg/dL (8.4-10.2)
--- NOTE | 2018-12-11 13:52 | Nuclear Medicine Report ---
PERFUSION LUNG SCAN: History: Chest pain. After injection of Technetium 99m macroaggregated albumin gamma camera imaging of the lungs in multiple projections demonstrates normal pulmonary contours with a homogeneous distribution of activity. No focal areas of perfusion deficiency are identified. IMPRESSION: Normal study.
== END 2018-12-11 14:28 | disposition home or self-care (01) ==
LOC: ED 09:43
DX: R07.89 Other chest pain (principal); I13.0 Hypertensive heart and chronic kidney disease with heart failure and stage 1 through stage 4 chronic kidney disease, or unspecified chronic kidney disease; E11.22 Type 2 diabetes mellitus with diabetic chronic kidney disease; N18.9 Chronic kidney disease, unspecified; I50.9 Heart failure, unspecified; Z91.013 Allergy to seafood
CPT/HCPCS: 36415; 71045; 78580; 80048; 84484; 85025; 85379; 93005; 93010; 99284; A9540

== ENCOUNTER 2019-02-14 23:16 | Inpatient (IN) | payer MEDICAID ==
[2019-02-14] MEDS ORDERED: NACL 0.9% 1000 ML 1,000 ML IV ONE (23:41)
[2019-02-14] MEDS ORDERED: ZOFRAN IV ONE (23:41)
[2019-02-15] MEDS ORDERED: ZOFRAN IM ONE ×2 (00:04→04:40)
[2019-02-15] MEDS ORDERED: ATIVAN IM ONE (00:07)
[2019-02-15] MEDS ORDERED: ATIVAN ONE (00:12)
[2019-02-15 01:21] LABS: Basophils % (Auto) 1.1 % (0.0-1.8); Eosinophils # (Auto) 0.3 K/mm3 (0.0-0.4); Eosinophils % (Auto) 5.7 % (0.0-4.3); Hematocrit 38.5 % (30.3-42.9); Hemoglobin 12.8 gm/dl (10.1-14.3); Lymphocytes # (Auto) 0.9 K/mm3 (1.2-5.4); Lymphocytes % (Auto) 19.1 % (13.4-35.0); Mean Corpuscular HGB Conc 33 % (30-34); Mean Corpuscular Volume 96 fl (79-97); Monocytes # (Auto) 0.3 K/mm3 (0.0-0.8); Monocytes % (Auto) 6.4 % (0.0-7.3); Platelet Count 222 K/mm3 (140-440); Red Blood Count 4.01 M/mm3 (3.65-5.03); Red Cell Distribution Width 14.8 % (13.2-15.2)
[2019-02-15 01:54] LABS: Albumin 4.5 g/dL (3.9-5); Calcium 10.6 mg/dL (8.4-10.2)
[2019-02-15] MEDS ORDERED: PROCARDIA XL PO ONE (01:54)
[2019-02-15] MEDS ORDERED: APRESOLINE ONE (03:09)
[2019-02-15] MEDS ORDERED: APRESOLINE IM ONE (03:15)
[2019-02-15] MEDS ORDERED: ZOFRAN ONE ×2 (04:33→09:03)
--- NOTE | 2019-02-15 04:59 | Emergency Department Report ---
HPI - General Chief Complaint: Nausea/Vomiting/Diarrhea Time Seen by Provider: 02/15/19 00:04 - HPI HPI: 28-year-old -[place] female who presents to the ED with nausea, vomiting, abdominal discomfort, for the past 2 days was today. Patient has hi story of diabetes, hypertension, end-stage renal disease on dialysis. She dialyzes on Sunday and Fridays, states she has been compliant with her dialysis. She is a patient of Dr. Adams. No fever chills or night sweats. Blood pressure has been high she started throwing up that she has not been able to keep her medicines down. ED Past Medical Hx - Past Medical History Previous Medical History?: Yes Hx Hypertension: Yes Hx Congestive Heart Failure: No Hx Diabetes: Yes Hx Renal Disease: Yes Hx Seizures: Yes Hx Asthma: No Hx COPD: No Hx HIV: No Additional medical history: gastroparesis - Surgical History Past Surgical History?: Yes Additional Surgical History: Cataract surgery-bilat. 2012. vas cath right chest wall - Social History Smoking Status: Never Smoker - Medications Home Medications: Home Medications Medication Instructions Recorded Confirmed Last Taken Type Furosemide [Lasix TAB] 40 mg PO DAILY 02/13/18 02/15/19 Unknown History hydrALAZINE [Apresoline TAB] 50 mg PO TID 02/13/18 02/15/19 Unknown History Metoprolol Xl [Metoprolol 50 mg PO QDAY 11/04/18 02/15/19 Unknown History SUCCINATE ER TAB] ED Review of Systems ROS: Stated complaint: N/V Other details as noted in HPI Comment: All other systems reviewed and negative Eyes: denies: eye pain ENT: denies: ear pain Respiratory: denies: cough Cardiovascular: denies: chest pain Gastrointestinal: nausea, vomiting Physical Exam - Physical Exam Vital Signs: Vital Signs 02/14/19 02/14/19 02/14/19 23:25 23:29 23:32 Temperature 98.9 F Pulse Rate 107 H Respiratory 22 20 Rate Blood Pressure 180/102 Blood Pressure [Right] O2 Sat by Pulse 100 99 Oximetry 02/14/19 02/15/19 02/15/19 23:46 00:00 00:16 Temperature Pulse Rate Respiratory Rate Blood Pressure Blood Pressure [Right] O2 Sat by Pulse 100 98 99 Oximetry 02/15/19 02/15/19 02/15/19 00:30 00:46 01:00 Temperature Pulse Rate 105 H 109 H Respiratory 16 19 Rate Blood Pressure Blood Pressure [Right] O2 Sat by Pulse 87 99 100 Oximetry 02/15/19 02/15/19 02/15/19 01:16 01:30 01:45 Temperature Pulse Rate 108 H 111 H 109 H Respiratory 14 17 Rate Blood Pressure Blood Pressure [Right] O2 Sat by Pulse 100 100 100 Oximetry 02/15/19 02/15/19 02/15/19 01:48 02:00 02:16 Temperature Pulse Rate 111 H 107 H 111 H Respiratory 16 21 14 Rate Blood Pressure 226/120 Blood Pressure 212/112 [Right] O2 Sat by Pulse 100 100 100 Oximetry 02/15/19 02/15/19 02/15/19 02:30 02:45 03:00 Temperature Pulse Rate 109 H 108 H 108 H Respiratory 12 18 18 Rate Blood Pressure 211/119 Blood Pressure [Right] O2 Sat by Pulse 100 100 100 Oximetry 02/15/19 02/15/19 02/15/19 03:15 03:17 03:30 Temperature Pulse Rate 109 H 110 H 112 H Respiratory 20 21 Rate Blood Pressure 195/105 196/112 179/95 Blood Pressure [Right] O2 Sat by Pulse 100 99 Oximetry 02/15/19 02/15/19 02/15/19 03:45 04:00 04:15 Temperature Pulse Rate 114 H 112 H 119 H Respiratory 14 15 16 Rate Blood Pressure 182/97 Blood Pressure [Right] O2 Sat by Pulse 100 98 99 Oximetry Physical Exam: Physical Exam: - General Limitations: No Limitations General appearance: alert, in no apparent distress, obese - Head Head exam: Present: atraumatic, normocephalic - Eye Eye exam: Present: normal appearance - ENT ENT exam: Present: mucous membranes moist - Neck Neck exam: Present: normal inspection - Respiratory Respiratory exam: Present: normal lung sounds bilaterally. Absent: respiratory distress - Cardiovascular Cardiovascular Exam: Present: normal rhythm, tachycardia. Absent: systolic murmur, diastolic murmur, rubs, gallop, left chest wall dialysis shunt. - GI/Abdominal GI/Abdominal exam: Present: soft, normal bowel sounds - Extremities Exam Extremities exam: Present: normal inspection - Back Exam Back exam: Present: normal inspection - Neurological Exam Neurological exam: Present: alert, oriented X3 - Psychiatric Psychiatric exam: normal affect and mood - Skin Skin exam: Present: warm, dry, intact, normal color. Absent: rash ED Course Vital Signs 02/14/19 02/14/19 02/14/19 23:25 23:29 23:32 Temperature 98.9 F Pulse Rate 107 H Respiratory 22 20 Rate Blood Pressure 180/102 Blood Pressure [Right] O2 Sat by Pulse 100 99 Oximetry 02/14/19 02/15/19 02/15/19 23:46 00:00 00:16 Temperature Pulse Rate Respiratory Rate Blood Pressure Blood Pressure [Right] O2 Sat by Pulse 100 98 99 Oximetry 02/15/19 02/15/19 02/15/19 00:30 00:46 01:00 Temperature Pulse Rate 105 H 109 H Respiratory 16 19 Rate Blood Pressure Blood Pressure [Right] O2 Sat by Pulse 87 99 100 Oximetry 02/15/19 02/15/19 02/15/19 01:16 01:30 01:45 Temperature Pulse Rate 108 H 111 H 109 H Respiratory 14 17 Rate Blood Pressure Blood Pressure [Right] O2 Sat by Pulse 100 100 100 Oximetry 02/15/19 02/15/19 02/15/19 01:48 02:00 02:16 Temperature Pulse Rate 111 H 107 H 111 H Respiratory 16 21 14 Rate Blood Pressure 226/120 Blood Pressure 212/112 [Right] O2 Sat by Pulse 100 100 100 Oximetry 02/15/19 02/15/19 02/15/19 02:30 02:45 03:00 Temperature Pulse Rate 109 H 108 H 108 H Respiratory 12 18 18 Rate Blood Pressure 211/119 Blood Pressure [Right] O2 Sat by Pulse 100 100 100 Oximetry 02/15/19 02/15/19 02/15/19 03:15 03:17 03:30 Temperature Pulse Rate 109 H 110 H 112 H Respiratory 20 21 Rate Blood Pressure 195/105 196/112 179/95 Blood Pressure [Right] O2 Sat by Pulse 100 99 Oximetry 02/15/19 02/15/19 02/15/19 03:45 04:00 04:15 Temperature Pulse Rate 114 H 112 H 119 H Respiratory 14 15 16 Rate Blood Pressure 182/97 Blood Pressure [Right] O2 Sat by Pulse 100 98 99 Oximetry ED Medical Decision Making - Lab Data Result diagrams: 02/15/19 00:42 02/15/19 00:42 Critical care attestation.: If time is entered above; I have spent that time in minutes in the direct care of this critically ill patient, excluding procedure time. ED Disposition Clinical Impression: Hypertensive urgency Intractable nausea and vomiting Qualifiers: Vomiting type: unspecified Qualified Code(s): R11.2 - Nausea with vomiting, unspecified Disposition: OP ADMIT IP TO THIS HOSP Is pt being admited?: Yes Does the pt Need Aspirin: Yes Condition: Stable Referrals: PRIMARY CARE,MD [Primary Care Provider] - 3-5 Days
[2019-02-15] MEDS ORDERED: REGLAN IV PRN ×2 (05:37→05:47)
[2019-02-15] MEDS ORDERED: AMBIEN PO PRN (05:37)
[2019-02-15] MEDS ORDERED: PHENERGAN PR PRN (05:37)
[2019-02-15] MEDS ORDERED: SODIUM CHLORIDE FLUSH SYRINGE 10 ML IV PRN (05:37)
[2019-02-15] MEDS ORDERED: NORMODYNE IV STA (05:37)
[2019-02-15] MEDS ORDERED: TYLENOL PO PRN (05:37)
[2019-02-15] MEDS ORDERED: APRESOLINE IV PRN (05:41)
--- NOTE | 2019-02-15 05:48 | History and Physical Report ---
History of Present Illness Date of examination: 02/15/19 Date of admission: 02/15/2019 Chief complaint: Nausea and vomiting History of present illness: Patient is a 28-year-old -Citizen Of [place] female with a history of diabetes mellitus type 1, gastroparesis and end-stage renal disease on hemodialysis who presented to the ED on account of 2 days history of nausea and vomiting times multiple episodes. She has associated generalized abdominal pain, chills without fever, constipation, palpitation, headaches, lightheadedness and syncope. She denies chest pain, shortness of breath, cough, sore throat, runny nose or congestion, leg swelling, orthopnea or PND. Past History Past Medical History: diabetes, dialysis, ESRD, hypertension, seizures, other (gastroparesis) Past Surgical History: , Other (cataract surgery, vasc cath placement) Social history: no significant social history (she denies tobacco, alcohol or illicit drug use) Family history: diabetes (mother), hypertension (mother) Medications and Allergies Allergies Allergy/AdvReac Type Severity Reaction Status Date / Time shellfish derived Allergy Severe Angioedema Verified 12/11/18 09:58 Home Medications Medication Instructions Recorded Confirmed Last Taken Type Furosemide [Lasix TAB] 40 mg PO DAILY 02/13/18 02/15/19 Unknown History hydrALAZINE [Apresoline TAB] 50 mg PO TID 02/13/18 02/15/19 Unknown History Metoprolol Xl [Metoprolol 50 mg PO QDAY 11/04/18 02/15/19 Unknown History SUCCINATE ER TAB] Active Meds: Active Medications Acetaminophen (Tylenol) 650 mg PO Q4H PRN PRN Reason: Pain MILD(1-3)/Fever >100.5/RODRIGUEZ Famotidine (Pepcid) 10 mg IV BID [facility] Heparin Sodium (Porcine) (Heparin) 5,000 unit SUB-Q Q8HR [facility] Hydralazine HCl (Apresoline) 20 mg IV Q4HR PRN PRN Reason: Blood Pressure Hydralazine HCl (Apresoline) 50 mg PO TID [facility] Sodium Chloride (Nacl 0.9% 1000 Ml) 1,000 mls @ 50 mls/hr IV DIRECT JAKOB Metoclopramide HCl (Reglan) 10 mg IV Q6H PRN PRN Reason: Nausea And Vomiting Metoprolol Succinate (Toprol Xl) 50 mg PO QDAY [facility] Ondansetron HCl (Zofran) 4 mg IV Q6H PRN PRN Reason: Nausea And Vomiting Promethazine HCl (Phenergan) 25 mg PA Q6H PRN PRN Reason: N/V IF NPO AND NO IV ACCESS Sodium Chloride (Sodium Chloride Flush Syringe 10 Ml) 10 ml IV BID JAKOB Sodium Chloride (Sodium Chloride Flush Syringe 10 Ml) 10 ml IV PRN PRN PRN Reason: LINE FLUSH Zolpidem Tartrate (Ambien) 5 mg PO QHS PRN PRN Reason: Insomnia Review of Systems All systems: negative (except as documented in the HPI, all other systems are reviewed and negative) Exam - Constitutional Vitals: Temp Pulse Resp BP Pulse Ox 98.9 F 118 H 18 186/100 98 02/14/19 23:25 02/15/19 05:16 02/15/19 05:00 02/15/19 05:16 02/15/19 05:16 General appearance: Present: no acute distress, well-nourished - EENT Eyes: Present: PERRL, EOM intact ENT: hearing intact, clear oral mucosa - Neck Neck: Present: supple, normal ROM - Respiratory Respiratory effort: normal Respiratory: bilateral: CTA - Cardiovascular Rhythm: regular (with tachycardia) Heart Sounds: Present: S1 & S2. Absent: rub, click - Extremities Extremities: pulses symmetrical, No edema Peripheral Pulses: within normal limits - Abdominal General gastrointestinal: Present: soft, tender (lower abdomen), non-distended, normal bowel sounds Female genitourinary: Present: deferred - Integumentary Integumentary: Present: clear, warm, dry - Musculoskeletal Musculoskeletal: gait normal, strength equal bilaterally - Psychiatric Psychiatric: appropriate mood/affect, intact judgment & insight - Neurologic Neurologic: CNII-XII intact, moves all extremities Results - Labs CBC & Chem 7: 02/15/19 00:42 02/15/19 00:42 Labs: Laboratory Last Values WBC 4.5 K/mm3 (4.5-11.0) 02/15/19 00:42 RBC 4.01 M/mm3 (3.65-5.03) 02/15/19 00:42 Hgb 12.8 gm/dl (10.1-14.3) 02/15/19 00:42 Hct 38.5 % (30.3-42.9) 02/15/19 00:42 MCV 96 fl (79-97) 04 00:42 MCH 32 pg (28-32) 04 00:42 MCHC 33 % (30-34) 04 00:42 RDW 14.8 % (13.2-15.2) 04 00:42 Plt Count 222 K/mm3 (140-440) 04 00:42 Lymph % (Auto) 19.1 % (13.4-35.0) 04 00:42 Cook % (Auto) 6.4 % (0.0-7.3) 02/15/19 00:42 Eos % (Auto) 5.7 % (0.0-4.3) H 04 00:42 Baso % (Auto) 1.1 % (0.0-1.8) 02/15/19 00:42 Lymph # 0.9 K/mm3 (1.2-5.4) L 04 00:42 Cook # 0.3 K/mm3 (0.0-0.8) 04 00:42 Eos # 0.3 K/mm3 (0.0-0.4) 04 00:42 Baso # 0.0 K/mm3 (0.0-0.1) 04 00:42 Seg Neutrophils % 67.7 % (40.0-70.0) 02/15/19 00:42 Seg Neutrophils # 3.0 K/mm3 (1.8-7.7) 02/15/19 00:42 Sodium 142 mmol/L (137-145) 02/15/19 00:42 Potassium 4.9 mmol/L (3.6-5.0) 02/15/19 00:42 Chloride 99.7 mmol/L (98-107) 02/15/19 00:42 Carbon Dioxide 28 mmol/L (22-30) 02/15/19 00:42 Anion Gap 19 mmol/L 02/15/19 00:42 BUN 20 mg/dL (7-17) H 02/15/19 00:42 Creatinine 5.5 mg/dL (0.7-1.2) H 02/15/19 00:42 Estimated GFR 11 ml/min 02/15/19 00:42 BUN/Creatinine Ratio 4 % 02/15/19 00:42 Glucose 123 mg/dL (65-100) H 02/15/19 00:42 Calcium 10.6 mg/dL (8.4-10.2) H 02/15/19 00:42 Total Bilirubin 0.30 mg/dL (0.1-1.2) 02/15/19 00:42 AST 19 units/L (5-40) 02/15/19 00:42 ALT 14 units/L (7-56) 02/15/19 00:42 Alkaline Phosphatase 78 units/L (35-129) 02/15/19 00:42 Total Protein 7.3 g/dL (6.3-8.2) 02/15/19 00:42 Albumin 4.5 g/dL (3.9-5) 02/15/19 00:42 Albumin/Globulin Ratio 1.6 % 02/15/19 00:42 Lipase 17 units/L (13-60) 02/15/19 00:42 Assessment and Plan Assessment and plan: Intractable nausea and vomiting -Probably secondary to gastroparesis -HCG test pending -Consider CT abdomen/pelvis if no improvement -On NPO, IV fluid and antiemetics Uncontrolled hypertension -On antihypertensives, will monitor BP Lower abdominal pain -On when necessary narcotics -Urinalysis pending Mild hypercalcemia -On IV fluid, will monitor level DM1 -Controlled, on SSI ESRD on HD -Consult nephrology DVT prophylaxis with heparin and GI prophylaxis with famotidine Disposition: For discharge when medically stable Time spent: 35 minutes
[2019-02-15] MEDS ORDERED: D50W (25GM) Syringe IV PRN (06:04)
[2019-02-15] MEDS: HEPARIN SUB-Q SCH ×3 (06:32→22:13)
[2019-02-15] MEDS ORDERED: DILAUDID ONE (09:04)
[2019-02-15] MEDS: ZOFRAN IV PRN ×2 (09:11→14:40)
[2019-02-15] MEDS: DILAUDID IV PRN ×2 (09:12→14:40)
[2019-02-15] MEDS: APRESOLINE PO SCH ×3 (09:26→20:44)
[2019-02-15] MEDS ORDERED: TOPROL XL PO SCH (10:00)
[2019-02-15] MEDS ORDERED: LASIX PO SCH (10:00)
[2019-02-15] MEDS: HumaLOG SUB-Q SCH ×2 (13:00→18:10)
--- NOTE | 2019-02-15 14:26 | Event Note ---
Date: 02/15/19 Patient is 28 yo with abd pain, nausea, vomiting. I have seen and examined her. Will get CT Abdomen after ruled out.
[2019-02-15] MEDS: PEPCID IV SCH ×2 (15:27→22:13)
[2019-02-15] MEDS: NACL 0.9% 1000 ML 1,000 ML IV SCH (15:31)
--- NOTE | 2019-02-15 16:06 | XRay Report ---
PROCEDURE: XR CHEST 1V AP TECHNIQUE: AP chest HISTORY: vomiting COMPARISONS: Chest x-ray December 11, 2018 FINDINGS: Trachea midline. Heart size normal. Right internal jugular line stable No pneumothorax. No effusion. No acute airspace disease No acute bony abnormality IMPRESSION: No acute pulmonary disease.. This document is electronically signed by Angelo Darden MD., February 15 2019 04:04:37 PM ET
[2019-02-15 16:28] LABS: HCG Qualitative,Urine Negative (Negative)
[2019-02-15 16:36] LABS: Bilirubin,Urine NEG (Negative); Blood,Urine NEG (Negative); Color,Urine Yellow (Yellow); Granular Casts,Urine 3 /LPF; Urobilinogen,Urine < 2.0 mg/dL (<2.0)
[2019-02-15 16:38] LABS: Protein,Urine >500 mg/dL (Negative)
--- NOTE | 2019-02-15 17:45 | Cat Scan Report ---
PROCEDURE: CT ABDOMEN PELVIS WO CON TECHNIQUE: Axial helical imaging through the abdomen and pelvis with sagittal and coronal reformatte d images obtained. HISTORY: Abdominal pain COMPARISONS: CT abdomen and pelvis dated February 13, 2018. The report of that study is not available fo r review at the time of this dictation. FINDINGS: Evaluation of the lung bases is limited by motion artifact. There appear to be groundglass areas of pulmonary consolidation in both lung bases. Atelectasis versu s infiltrates. There is no evidence of pneumothorax or pleural fluid collection. The heart is enlarged. The liver, spleen, pancreas and adrenal glands are unremarkable. There is no evidence of hydronephrosis nor urinary tract calculi. There is mild stranding of the dennis nephric fat similar in appearance to the previous study. The gallbladder is moderately distended and contains increased density in the dependent portion of th e gallbladder. Gallstones versus calcification of the gallbladder wall. This is similar in appearance to the previous study. The bowel is normal caliber. There is a mild to moderate amount of stool throughout the colon. The appendix is normal caliber. There is no evidence of pneumoperitoneum or free fluid. The abdominal aorta is normal caliber. There is no evidence of intra-abdominal adenopathy. The urinary uterus and adnexa are unremarkable. The urinary bladder is moderately distended and unremarkable. The bony structures are unremarkable. Impression: 1. No evidence of an acute intra-abdominal process. 2. Mild to moderate amount of stool throughout the colon. 3. Gallstone within the dependent portion of the gallbladder versus calcification of the gallbladder wall similar in appearance to the previous study. 4. Cardiomegaly. 5. Groundglass pulmonary consolidation in both lung bases. Atelectasis versus infiltrates. This document is electronically signed by Davida Arango MD., February 15 2019 05:43:21 PM ET
[2019-02-15] MEDS: REGLAN IV SCH ×2 (17:50→22:13)
[2019-02-15] MEDS: SODIUM CHLORIDE FLUSH SYRINGE 10 ML IV SCH ×2 (17:50→22:14)
[2019-02-15] MEDS: LOPRESSOR IV SCH (18:10)
[2019-02-16] MEDS: LOPRESSOR IV SCH ×4 (00:34→18:55)
[2019-02-16] MEDS: HumaLOG SUB-Q SCH ×4 (00:35→19:08)
[2019-02-16] MEDS: HEPARIN SUB-Q SCH ×3 (06:28→22:01)
--- NOTE | 2019-02-16 07:19 | Consultation ---
History of Present Illness - Reason for Consult Consult date: 02/16/19 end stage renal disease Requesting physician: KYLEE MARRERO - History of Present Illness This is a 28yo AAF, well known to our group, with a history of diabetes mellitus type 1, ESRD secondary to diabetic nephropathy, on hemodialysis on MWF schedule at [facility], also h/o diabetic gastropathy, who presented to the ED with multiple episodes of nausea and vomiting over the past 2-3 days. She has associated generalized abdominal pain, chills without fever, diarrhea, constipation, palpitation, headaches, lightheadedness and syncope. She states that she had some pain at the permcath side on Sunday, which is now resolved, denies CP, SOB, KEITH, cough, sore throat, runny nose or congestion, leg swelling, orthopnea or PND. In ER, test was negative, CT A/P showed no evidence of acute intraabdominal process, gallstone in the dependent portion of the GB vs calcification. Renal consult requested for management of ESRD Past History Past Medical History: diabetes, dialysis, ESRD, hypertension, seizures, other (gastroparesis) Past Surgical History: , Other (cataract surgery, vasc cath placement) Social history: no significant social history (she denies tobacco, alcohol or i llicit drug use) Family history: diabetes (mother), hypertension (mother) Medications and Allergies Allergies Allergy/AdvReac Type Severity Reaction Status Date / Time shellfish derived Allergy Severe Angioedema Verified 12/11/18 09:58 Home Medications Medication Instructions Recorded Confirmed Last Taken Type Furosemide [Lasix TAB] 40 mg PO DAILY 02/13/18 02/15/19 Unknown History hydrALAZINE [Apresoline TAB] 50 mg PO TID 02/13/18 02/15/19 Unknown History Metoprolol Xl [Metoprolol 50 mg PO QDAY 11/04/18 02/15/19 Unknown History SUCCINATE ER TAB] Active Meds: Active Medications Acetaminophen (Tylenol) 650 mg PO Q4H PRN PRN Reason: Pain MILD(1-3)/Fever >100.5/RODRIGUEZ Dextrose (D50w (25gm) Syringe) 50 ml IV PRN PRN PRN Reason: Hypoglycemia Famotidine (Pepcid) 10 mg IV BID JAKOB Last Admin: 02/15/19 22:13 Dose: 10 mg Documented by: Heparin Sodium (Porcine) (Heparin) 5,000 unit SUB-Q Q8HR [facility] Last Admin: 02/16/19 06:28 Dose: 5,000 unit Documented by: Hydralazine HCl (Apresoline) 20 mg IV Q4HR PRN PRN Reason: Blood Pressure Hydralazine HCl (Apresoline) 50 mg PO TID [facility] Last Admin: 02/15/19 20:44 Dose: Not Given Documented by: Hydromorphone HCl (Dilaudid) 1 mg IV Q3H PRN PRN Reason: Pain , Severe (7-10) Last Admin: 02/15/19 14:40 Dose: 1 mg Documented by: Sodium Chloride (Nacl 0.9% 1000 Ml) 1,000 mls @ 50 mls/hr IV DIRECT [facility] Last Admin: 02/15/19 15:31 Dose: 50 mls/hr Documented by: Insulin Human Lispro (Humalog) 0 unit SUB-Q Q6HR [facility]; Protocol Last Admin: 02/16/19 06:29 Dose: Not Given Documented by: Metoclopramide HCl (Reglan) 5 mg IV ACHS [facility] Last Admin: 02/15/19 22:13 Dose: 5 mg Documented by: Metoprolol Tartrate (Lopressor) 5 mg IV Q6HR [facility] Last Admin: 02/16/19 06:28 Dose: 5 mg Documented by: Ondansetron HCl (Zofran) 4 mg IV Q6H PRN PRN Reason: Nausea And Vomiting Last Admin: 02/15/19 14:40 Dose: 4 mg Documented by: Promethazine HCl (Phenergan) 25 mg [place] Q6H PRN PRN Reason: N/V IF NPO AND NO IV ACCESS Sodium Chloride (Sodium Chloride Flush Syringe 10 Ml) 10 ml IV BID [facility] Last Admin: 02/15/19 22:14 Dose: 10 ml Documented by: Sodium Chloride (Sodium Chloride Flush Syringe 10 Ml) 10 ml IV PRN PRN PRN Reason: LINE FLUSH Zolpidem Tartrate (Ambien) 5 mg PO QHS PRN PRN Reason: Insomnia Review of Systems All systems: negative Constitutional: weakness, poor appetite Gastrointestinal: nausea, vomiting Exam - Vital Signs Vital signs: Vital Signs Temp Pulse Resp BP Pulse Ox 98.9 F 107 H 22 180/102 100 04/12/19 23:25 02/14/19 23:25 02/14/19 23:25 02/14/19 23:25 02/14/19 23:25 - General Appearance General appearance: well-developed, well-nourished, appears stated age EENT: ATNC, PERRL, mucous membranes moist Neck: Present: neck supple, Other (Rt permcaht, site c/d/i ) Respiratory: Clear to Ascultation Heart: regular, S1S2 Gastrointestinal: Present: normoactive bowel sounds Integumentary: no rash, other (no edema ) Neurologic: no focal deficit, alert and oriented x3, strength 5/5, CN 3-12 intact Psychiatric: mood/affect appropriate, cooperative Results - Lab Results 02/15/19 00:42 02/15/19 00:42 Most recent lab results Calcium 10.6 mg/dL (8.4-10.2) H 02/15/19 00:42 Assessment and Plan - Patient Problems (1) End stage renal disease Current Visit: No Status: Acute Plan to address problem: Cont HD on MWF schedule (2) Diabetic gastropathy Current Visit: Yes Status: Acute Plan to address problem: cont supportive care with phenergan/reglan prn. if symptoms do not improve will consider adding ketamine. (3) Hypertensive chronic kidney disease with stage 5 chronic kidney disease or end stage renal disease Current Visit: No Status: Acute Plan to address problem: BP controlled, monitor on current meds (4) Type 1 diabetes mellitus with diabetic nephropathy Current Visit: No Status: Acute Plan to address problem: glucose control as per primary attending
[2019-02-16] MEDS ORDERED: NACL 0.9% 100 ML IV PRN (07:28)
[2019-02-16 08:24] LABS: Calcium 9.1 mg/dL (8.4-10.2)
[2019-02-16] MEDS: APRESOLINE PO SCH ×3 (08:32→20:47)
[2019-02-16] MEDS: REGLAN IV SCH ×4 (08:32→21:56)
[2019-02-16] MEDS: DILAUDID IV PRN ×3 (11:20→18:53)
[2019-02-16] MEDS: PEPCID IV SCH ×2 (11:21→21:57)
[2019-02-16] MEDS: SODIUM CHLORIDE FLUSH SYRINGE 10 ML IV SCH ×2 (11:22→23:00)
--- NOTE | 2019-02-16 12:38 | Progress Note ---
Assessment and Plan Assessment and plan: Gastroparesis Continue Reglan Morphine iv prn pain nausea, comiting, abd pain Due to gastroparesis Consulted GI physician. She sees Dr. Diego in the office ESRD on hemodialysis nephrology following Htn Monitor BP Seizure disorder seizure precautions, Full code status History Interval history: Still has nausea, vomiting, abd pain Hospitalist Physical - Physical exam Narrative exam: Gen: Not in acute distress, sitting up in bed, obese HEENT: Normocephalic, atraumatic Heart: S1 and S2 reg, no murmurs, rubs or gallop Lungs: Clear to auscultation, no crackles, Abd: soft, tender mid to upper abdomen, non distended, normal BS Ext: No edema, no clubbing, no cyanosis, hard lesions plantar feet Neuro: AAO x 3, no focal signs, moves all ext Psych:Normal mood - Constitutional Vitals: Temp Pulse Resp BP Pulse Ox 98.3 F 90 16 138/74 94 02/16/19 07:35 02/16/19 08:32 02/16/19 07:35 02/16/19 08:32 02/16/19 07:35 General appearance: Present: no acute distress, well-nourished Results - Labs CBC & Chem 7: 02/15/19 00:42 02/16/19 07:39 Labs: Laboratory Last Values WBC 4.5 K/mm3 (4.5-11.0) 02/15/19 00:42 RBC 4.01 M/mm3 (3.65-5.03) 02/15/19 00:42 Hgb 12.8 gm/dl (10.1-14.3) 02/15/19 00:42 Hct 38.5 % (30.3-42.9) 02/15/19 00:42 MCV 96 fl (79-97) 02/15/19 00:42 MCH 32 pg (28-32) 02/15/19 00:42 MCHC 33 % (30-34) 02/15/19 00:42 RDW 14.8 % (13.2-15.2) 02/15/19 00:42 Plt Count 222 K/mm3 (140-440) 02/15/19 00:42 Lymph % (Auto) 19.1 % (13.4-35.0) 02/15/19 00:42 [place] % (Auto) 6.4 % (0.0-7.3) 02/15/19 00:42 Eos % (Auto) 5.7 % (0.0-4.3) H 02/15/19 00:42 Baso % (Auto) 1.1 % (0.0-1.8) 02/15/19 00:42 Lymph # 0.9 K/mm3 (1.2-5.4) L 02/15/19 00:42 [place] # 0.3 K/mm3 (0.0-0.8) 02/15/19 00:42 Eos # 0.3 K/mm3 (0.0-0.4) 02/15/19 00:42 Baso # 0.0 K/mm3 (0.0-0.1) 02/15/19 00:42 Seg Neutrophils % 67.7 % (40.0-70.0) 02/15/19 00:42 Seg Neutrophils # 3.0 K/mm3 (1.8-7.7) 02/15/19 00:42 Sodium 145 mmol/L (137-145) 02/16/19 07:39 Potassium 4.3 mmol/L (3.6-5.0) 02/16/19 07:39 Chloride 102.9 mmol/L (98-107) 02/16/19 07:39 Carbon Dioxide 29 mmol/L (22-30) 02/16/19 07:39 Anion Gap 17 mmol/L 02/16/19 07:39 BUN 39 mg/dL (7-17) H 02/16/19 07:39 Creatinine 8.4 mg/dL (0.7-1.2) H D 02/16/19 07:39 Estimated GFR 7 ml/min 02/16/19 07:39 BUN/Creatinine Ratio 5 % 02/16/19 07:39 Glucose 131 mg/dL (65-100) H 02/16/19 07:39 POC Glucose 131 (70-105) H 02/16/19 06:05 Calcium 9.1 mg/dL (8.4-10.2) 02/16/19 07:39 Total Bilirubin 0.30 mg/dL (0.1-1.2) 02/15/19 00:42 AST 19 units/L (5-40) 02/15/19 00:42 ALT 14 units/L (7-56) 02/15/19 00:42 Alkaline Phosphatase 78 units/L (35-129) 02/15/19 00:42 Total Protein 7.3 g/dL (6.3-8.2) 02/15/19 00:42 Albumin 4.5 g/dL (3.9-5) 02/15/19 00:42 Albumin/Globulin Ratio 1.6 % 02/15/19 00:42 Lipase 17 units/L (13-60) 02/15/19 00:42 HCG, Qual Negative (Negative) 02/15/19 14:35 Urine Color Yellow (Yellow) 02/15/19 15:50 Urine Turbidity Clear (Clear) 02/15/19 15:50 Urine pH 8.0 (5.0-7.0) H 02/15/19 15:50 Ur Specific [place] 1.012 (1.003-1.030) 02/15/19 15:50 Urine Protein >500 mg/dL (Negative) 02/15/19 15:50 Urine Glucose (UA) >=500 mg/dL (Negative) 02/15/19 15:50 Urine Ketones Tr mg/dL (Negative) 02/15/19 15:50 Urine Blood Neg (Negative) 02/15/19 15:50 Urine Nitrite Neg (Negative) 02/15/19 15:50 Ur Reducing Substances Not Reportable 02/15/19 15:50 Urine Bilirubin Neg (Negative) 02/15/19 15:50 Urine Ictotest Not Reportable 02/15/19 15:50 Urine Urobilinogen < 2.0 mg/dL (<2.0) 02/15/19 15:50 Ur Leukocyte Esterase Neg (Negative) 02/15/19 15:50 Urine WBC (Auto) 1.0 /HPF (0.0-6.0) 02/15/19 15:50 Urine RBC (Auto) 4.0 /HPF (0.0-6.0) 02/15/19 15:50 U Epithel Cells (Auto) 3.0 /HPF (0-13.0) 02/15/19 15:50 Granular Casts 3 /LPF 02/15/19 15:50 Urine HCG, Qual Negative (Negative) 02/15/19 15:50 Active Medications - Current Medications Current Medications: Generic Name Dose Route Start Last Admin Trade Name Freq PRN Reason Stop Dose Admin Acetaminophen 650 mg 02/15/19 05:37 02/16/19 08:33 Tylenol PO 650 mg Q4H PRN Administration Pain MILD(1-3)/Fever >100.5/RODRIGUEZ Dextrose 50 ml 02/15/19 06:04 D50w (25gm) Syringe IV PRN PRN Hypoglycemia Famotidine 10 mg 02/15/19 10:00 02/16/19 11:21 Pepcid IV 10 mg BID JAKOB Administration Heparin Sodium (Porcine) 5,000 unit 02/15/19 06:00 02/16/19 06:28 Heparin SUB-Q 5,000 unit Q8HR [facility]OKB Administration Hydralazine HCl 20 mg 02/15/19 05:41 Apresoline IV Q4HR PRN Blood Pressure Hydralazine HCl 50 mg 02/15/19 08:00 02/16/19 08:32 Apresoline PO 50 mg TID JAKOB Administration Hydromorphone HCl 1 mg 02/15/19 06:03 02/16/19 11:20 Dilaudid IV 1 mg Q3H PRN Administration Pain , Severe (7-10) Sodium Chloride 1,000 mls @ 50 mls/hr 02/15/19 06:00 02/15/19 15:31 Nacl 0.9% 1000 Ml IV 50 mls/hr DIRECT JAKOB Administration Sodium Chloride 100 mls @ 999 mls/hr 02/16/19 07:28 Nacl 0.9% IV MEJIA PRN Hypotension Insulin Human Lispro 0 unit 02/15/19 12:00 02/16/19 06:29 Humalog SUB-Q Not Given Q6HR [facility] Protocol Metoclopramide HCl 5 mg 02/15/19 16:30 02/16/19 11:21 Reglan IV 5 mg ACHS JAKOB Administration Metoprolol Tartrate 5 mg 02/15/19 18:00 02/16/19 06:28 Lopressor IV 5 mg Q6HR [facility]AK[facility] Administration Ondansetron HCl 4 mg 02/15/19 05:37 02/15/19 14:40 Zofran IV 4 mg Q6H PRN Administration Nausea And Vomiting Promethazine HCl 25 mg 02/15/19 05:37 Phenergan [place] Q6H PRN N/V IF NPO AND NO IV ACCESS Sodium Chloride 10 ml 02/15/19 10:00 02/16/19 11:22 Sodium Chloride Flush Syringe 10 Ml IV 10 ml BID JAKOB Administration Sodium Chloride 10 ml 02/15/19 05:37 Sodium Chloride Flush Syringe 10 Ml IV PRN PRN LINE FLUSH Zolpidem Tartrate 5 mg 02/15/19 05:37 Ambien PO QHS PRN Insomnia
--- NOTE | 2019-02-16 13:06 | Gastroenterology Consultation ---
History of Present Illness - Reason for Consult Consult date: 02/16/19 nausea/vomiting Requesting physician: ANDREY MORALES - History of Present Illness Patient is a 28 yo aaf with h/o poorly controlled diabetes, ESRD and gastroparesis who presents with nausea/vomiting x 2 weeks. pt reports symptoms worsened for a few days prior to admission. Pt was sleeping at the time of exam and was not providing much detailed history. She reports some improvement in nausea since admission and requesting something to drink. She states symptoms are similar to her previous episodes of gastroparesis requiring admission. She denies gi bleeding. generalized abd pain which is slightly improved today. reports having a bm yesterday. states her glucose levels can get to the 300 levels in the evening at home. Past History Past Medical History: diabetes, dialysis, ESRD, hypertension, seizures, other (gastroparesis) Past Surgical History: , Other (cataract surgery, vasc cath placement) Social history: no significant social history (she denies tobacco, alcohol or illicit drug use) Family history: diabetes (mother), hypertension (mother) Medications and Allergies Allergies Allergy/AdvReac Type Severity Reaction Status Date / Time shellfish derived Allergy Severe Angioedema Verified 12/11/18 09:58 Home Medications Medication Instructions Recorded Confirmed Last Taken Type Furosemide [Lasix TAB] 40 mg PO DAILY 02/13/18 02/15/19 Unknown History hydrALAZINE [Apresoline TAB] 50 mg PO TID 02/13/18 02/15/19 Unknown History Metoprolol Xl [Metoprolol 50 mg PO QDAY 11/04/18 02/15/19 Unknown History SUCCINATE ER TAB] Active Meds: Active Medications Acetaminophen (Tylenol) 650 mg PO Q4H PRN PRN Reason: Pain MILD(1-3)/Fever >100.5/RODRIGUEZ Last Admin: 02/16/19 08:33 Dose: 650 mg Documented by: Dextrose (D50w (25gm) Syringe) 50 ml IV PRN PRN PRN Reason: Hypoglycemia Famotidine (Pepcid) 10 mg IV BID [facility] Last Admin: 02/16/19 11:21 Dose: 10 mg Documented by: Heparin Sodium (Porcine) (Heparin) 5,000 unit SUB-Q Q8HR [facility] Last Admin: 02/16/19 06:28 Dose: 5,000 unit Documented by: Hydralazine HCl (Apresoline) 20 mg IV Q4HR PRN PRN Reason: Blood Pressure Hydralazine HCl (Apresoline) 50 mg PO TID [facility] Last Admin: 02/16/19 08:32 Dose: 50 mg Documented by: Hydromorphone HCl (Dilaudid) 1 mg IV Q3H PRN PRN Reason: Pain , Severe (7-10) Last Admin: 02/16/19 11:20 Dose: 1 mg Documented by: Sodium Chloride (Nacl 0.9% 1000 Ml) 1,000 mls @ 50 mls/hr IV DIRECT [facility] Last Admin: 02/15/19 15:31 Dose: 50 mls/hr Documented by: Sodium Chloride (Nacl 0.9%) 100 mls @ 999 mls/hr IV MEJIA PRN PRN Reason: Hypotension Insulin Human Lispro (Humalog) 0 unit SUB-Q Q6HR [facility]; Protocol Last Admin: 02/16/19 06:29 Dose: Not Given Documented by: Metoclopramide HCl (Reglan) 5 mg IV ACHS [facility] Last Admin: 02/16/19 11:21 Dose: 5 mg Documented by: Metoprolol Tartrate (Lopressor) 5 mg IV Q6HR [facility] Last Admin: 02/16/19 06:28 Dose: 5 mg Documented by: Ondansetron HCl (Zofran) 4 mg IV Q6H PRN PRN Reason: Nausea And Vomiting Last Admin: 02/15/19 14:40 Dose: 4 mg Documented by: Promethazine HCl (Phenergan) 25 mg [place] Q6H PRN PRN Reason: N/V IF NPO AND NO IV ACCESS Sodium Chloride (Sodium Chloride Flush Syringe 10 Ml) 10 ml IV BID [facility] Last Admin: 02/16/19 11:22 Dose: 10 ml Documented by: Sodium Chloride (Sodium Chloride Flush Syringe 10 Ml) 10 ml IV PRN PRN PRN Reason: LINE FLUSH Zolpidem Tartrate (Ambien) 5 mg PO QHS PRN PRN Reason: Insomnia Review of Systems - Review of Systems All systems: negative (per HPI) Exam - Constitutional Vital Signs: Temp Pulse Resp BP Pulse Ox 98.3 F 90 16 138/74 94 02/16/19 07:35 02/16/19 08:32 02/16/19 07:35 02/16/19 08:32 02/16/19 07:35 General appearance: no acute distress - EENT Eyes: PERRL, EOM intact - Respiratory Respiratory effort: normal Respiratory: bilateral: CTA - Cardiovascular Rhythm: regular Heart Sounds: Present: S1 & S2 Extremities: No edema, Full ROM - Gastrointestinal General gastrointestinal: Present: soft, non-tender, non-distended - Integumentary Integumentary: Present: clear, warm - Neurologic Neurological: alert and oriented x3 - Psychiatric Psychiatric: appropriate mood/affect - Labs CBC & Chem 7: 02/15/19 00:42 02/16/19 07:39 Lab Results: Laboratory Results - last 24 hr 02/15/19 02/15/19 02/15/19 14:35 15:50 17:45 Sodium Potassium Chloride Carbon Dioxide Anion Gap BUN Creatinine Estimated GFR BUN/Creatinine Ratio Glucose POC Glucose 220 H Calcium HCG, Qual Negative Urine Color Yellow Urine Turbidity Clear Urine pH 8.0 H Ur Specific [place] 1.012 Urine Protein >500 Urine Glucose (UA) >=500 Urine Ketones Tr Urine Blood Neg Urine Nitrite Neg Ur Reducing Substances Not Reportable Urine Bilirubin Neg Urine Ictotest Not Reportable Urine Urobilinogen < 2.0 Ur Leukocyte Esterase Neg Urine WBC (Auto) 1.0 Urine RBC (Auto) 4.0 U Epithel Cells (Auto) 3.0 Granular Casts 3 Urine HCG, Qual Negative 02/16/19 02/16/19 02/16/19 00:30 06:05 07:39 Sodium 145 Potassium 4.3 Chloride 102.9 Carbon Dioxide 29 Anion Gap 17 BUN 39 H Creatinine 8.4 H D Estimated GFR 7 BUN/Creatinine Ratio 5 Glucose 131 H POC Glucose 169 H 131 H Calcium 9.1 HCG, Qual Urine Color Urine Turbidity Urine pH Ur Specific [place] Urine Protein Urine Glucose (UA) Urine Ketones Urine Blood Urine Nitrite Ur Reducing Substances Urine Bilirubin Urine Ictotest Urine Urobilinogen Ur Leukocyte Esterase Urine WBC (Auto) Urine RBC (Auto) U Epithel Cells (Auto) Granular Casts Urine HCG, Qual - Imaging CT Scan: report reviewed Assessment and Plan 1. Nausea/vomiting 2. Abdominal pain 3. History of gastroparesis 4. Poorly controlled diabetes 5. ESRD -symptoms likey due to diabetic gastroparesis. improving with anti-emetics. will start trial of clears. reports having endoscopy several years ago. if symptoms don't improve, and unable to tolerate po intake, can consider repeating endoscopy. otherwise, will plan for supportive care and diabetes control per primary.
[2019-02-16] MEDS: NACL 0.9% 1000 ML 1,000 ML IV SCH (21:54)
[2019-02-17] MEDS: HumaLOG SUB-Q SCH ×4 (00:31→18:00)
[2019-02-17] MEDS: LOPRESSOR IV SCH ×4 (00:31→18:00)
[2019-02-17] MEDS: DILAUDID IV PRN ×2 (00:37→07:34)
[2019-02-17] MEDS: HEPARIN SUB-Q SCH ×3 (05:42→21:57)
[2019-02-17] MEDS: ZOFRAN IV PRN ×2 (06:59→18:32)
--- NOTE | 2019-02-17 09:15 | Progress Note ---
Assessment and Plan - Patient Problems (1) Diabetic gastropathy Current Visit: Yes Status: Acute Plan to address problem: Symptoms persisting. No family around to give emotional support. Increase Reglan to 10 mg IV before meals and at bedtime. (2) Hypertensive urgency Current Visit: Yes Status: Acute Plan to address problem: Blood pressure labile due to intolerance of oral medications. Continue intravenous medications. Start Catapres patch (3) Intractable nausea and vomiting Current Visit: Yes Status: Acute Plan to address problem: Probably secondary to gastroparesis. Continue management as detailed above (4) End stage renal disease Current Visit: No Status: Acute Plan to address problem: Hemodialysis on a Sunday, Sunday and Sunday schedule. We'll dialyze in the morning (5) Hypertensive chronic kidney disease with stage 5 chronic kidney disease or end stage renal disease Current Visit: No Status: Acute Plan to address problem: Follow-up blood pressure on adjusted medications (6) Type 1 diabetes mellitus with diabetic nephropathy Current Visit: No Status: Acute Plan to address problem: Continue insulin. Blood sugar management by primary attending Subjective Date of service: 02/17/19 Principal diagnosis: ESRD, type 1 diabetes mellitus, refractory nausea and vomiting Interval history: Patient seen lying in bed. Still complaining of nausea. Vomiting overnight. Also complains of back pain. No family around Objective - Exam Narrative Exam: Young, comfortably lying in bed in no acute distress HEENT: NCAT, pink oral mucous membrane Neck: Supple, no venous distention CVS: S1S2 RRR with no murmur, rub or gallop Chest: Clear to auscultation Abdomen: Protuberant, soft, nontender, no organomegaly, bowel sounds are present Extremities: No edema Neuro: Awake, alert no focal deficits - Vital Signs Vital signs: Vital Signs - 12hr 02/17/19 02/17/19 02/17/19 00:19 00:31 05:20 Temperature 98.3 F 98.4 F Pulse Rate 98 H 97 H 105 H Respiratory 18 18 Rate Blood Pressure 109/63 109/63 165/97 O2 Sat by Pulse 95 100 Oximetry 02/17/19 02/17/19 05:38 07:36 Temperature 97.9 F Pulse Rate 107 H 102 H Respiratory 18 Rate Blood Pressure 120/68 164/86 O2 Sat by Pulse 94 Oximetry - Lab 02/15/19 00:42 02/16/19 07:39 Most recent lab results Calcium 9.1 mg/dL (8.4-10.2) 02/16/19 07:39 Medications & Allergies - Medications Allergies/Adverse Reactions: Allergies shellfish derived Allergy (Severe, Verified 12/11/18 09:58) Angioedema Home Medications: Home Medications Medication Instructions Recorded Confirmed Last Taken Type Furosemide [Lasix TAB] 40 mg PO DAILY 02/13/18 02/15/19 Unknown History hydrALAZINE [Apresoline TAB] 50 mg PO TID 02/13/18 02/15/19 Unknown History Metoprolol Xl [Metoprolol 50 mg PO QDAY 11/04/18 02/15/19 Unknown History SUCCINATE ER TAB] Active Medications: Generic Name Dose Route Start Last Admin Trade Name Freq PRN Reason Stop Dose Admin Acetaminophen 650 mg 02/15/19 05:37 02/16/19 08:33 Tylenol PO 650 mg Q4H PRN Administration Pain MILD(1-3)/Fever >100.5/RODRIGUEZ Dextrose 50 ml 02/15/19 06:04 D50w (25gm) Syringe IV PRN PRN Hypoglycemia Famotidine 10 mg 02/15/19 10:00 02/16/19 21:57 Pepcid IV 10 mg BID JAKOB Administration Heparin Sodium (Porcine) 5,000 unit 02/15/19 06:00 02/17/19 05:42 Heparin SUB-Q 5,000 unit Q8HR [facility]AK[facility] Administration Hydralazine HCl 20 mg 02/15/19 05:41 Apresoline IV Q4HR PRN Blood Pressure Hydralazine HCl 50 mg 02/15/19 08:00 02/16/19 20:47 Apresoline PO 50 mg TID JAKOB Administration Hydromorphone HCl 1 mg 02/15/19 06:03 02/17/19 07:34 Dilaudid IV 1 mg Q3H PRN Administration Pain , Severe (7-10) Sodium Chloride 1,000 mls @ 50 mls/hr 02/15/19 06:00 02/16/19 21:54 Nacl 0.9% 1000 Ml IV 50 mls/hr DIRECT JAKOB Administration Sodium Chloride 100 mls @ 999 mls/hr 02/16/19 07:28 Nacl 0.9% IV MEJIA PRN Hypotension Insulin Human Lispro 0 unit 02/15/19 12:00 02/17/19 08:02 Humalog SUB-Q Not Given Q6HR [facility] Protocol Metoclopramide HCl 5 mg 02/15/19 16:30 02/16/19 21:56 Reglan IV 5 mg ACHS JAKOB Administration Metoprolol Tartrate 5 mg 02/15/19 18:00 02/17/19 05:38 Lopressor IV 5 mg Q6HR JAKOB Administration Ondansetron HCl 4 mg 02/15/19 05:37 02/17/19 06:59 Zofran IV 4 mg Q6H PRN Administration Nausea And Vomiting Promethazine HCl 25 mg 02/15/19 05:37 Phenergan ND Q6H PRN N/V IF NPO AND NO IV ACCESS Sodium Chloride 10 ml 02/15/19 10:00 02/16/19 23:00 Sodium Chloride Flush Syringe 10 Ml IV 10 ml BID JAKOB Administration Sodium Chloride 10 ml 02/15/19 05:37 Sodium Chloride Flush Syringe 10 Ml IV PRN PRN LINE FLUSH Zolpidem Tartrate 5 mg 02/15/19 05:37 Ambien PO QHS PRN Insomnia
[2019-02-17] MEDS ORDERED: CATAPRES-TTS PATCH TD SCH (10:00)
[2019-02-17] MEDS: REGLAN IV SCH ×3 (10:29→21:56)
[2019-02-17] MEDS: PEPCID IV SCH ×2 (10:29→21:56)
[2019-02-17] MEDS: SODIUM CHLORIDE FLUSH SYRINGE 10 ML IV SCH ×2 (10:31→21:58)
--- NOTE | 2019-02-17 11:00 | Gastroenterology Progress Note ---
Assessment and Plan 1.Nausea/vomiting 2. Abdominal pain 3. History of gastroparesis 4. Poorly controlled diabetes 5. ESRD -afebrile -WBC, H/H, LFTs, and lipase WNL -abd CT w/o acute process -last EGD 01/30/18-showed distal esophagitis (no GOO) -etiology-most likely 2/2 gastroparesis -clinically, patient reports feeling anxious this am along with continued abd pain and multiple episodes of vomiting non-bloody emesis. -will schedule for EGD tomorrow -continue clear liquids today as tolerated, then NPO after MN -avoid narcotics for this can exacerbate symptoms -consider short term trial of low dose Ativan if N/V persists -optimize glycemic control -continue PPI, antiemetics, and supportive care -electrolyte management per primary team -will follow Subjective Date of service: 02/17/19 Principal diagnosis: N/V Interval history: Patient sitting in bed w/o acute distress. C/o feeling anxious and continued abd pain and N/V with 2-4 episodes this am. No signs of bleeding. Objective - Constitutional Vitals: Temp Pulse Resp BP Pulse Ox 97.9 F 102 H 18 164/86 94 02/17/19 07:36 02/17/19 07:36 02/17/19 07:36 02/17/19 07:36 02/17/19 07:36 General appearance: no acute distress, other (anxious) - EENT Eyes: PERRL, EOM intact ENT: hearing intact - Respiratory Respiratory: bilateral: CTA - Cardiovascular Rhythm: other (tachycardia) - Gastrointestinal General gastrointestinal: Present: soft, tender (slight TTP), non-distended, normal bowel sounds - Neurologic Neurological: alert and oriented x3 - Labs CBC & Chem 7: 02/15/19 00:42 02/16/19 07:39 Labs: Laboratory Results - last 24 hr 02/16/19 02/16/19 02/17/19 13:36 19:08 00:35 POC Glucose 194 H 169 H 141 H 02/17/19 07:37 POC Glucose 131 H
--- NOTE | 2019-02-17 11:39 | Progress Note ---
Assessment and Plan Assessment and plan: Patient is a 28-year-old -[place] female with a history of diabetes mellitus type 1, gastroparesis and end-stage renal disease on hemodialysis who presented to the ED on account of 2 days history of nausea and vomiting times multiple episodes. . She is on Reglan, Zofran. GI following. Still complains of abdominal pain, nausea, vomiting. For EGD tomorrow. Gastroparesis Continue Reglan Morphine iv prn pain nausea, vomiting, abd pain Due to gastroparesis GI following ESRD on hemodialysis nephrology following Htn Monitor BP Seizure disorder seizure precautions, Full code status Dispo:For EGD tomorrow. History Interval history: Still has nausea, vomiting, abdominal pain anxiety Hospitalist Physical - Physical exam Narrative exam: Gen: Not in acute distress, sitting up in bed, obese HEENT: Normocephalic, atraumatic Neck:supple, no JVD Heart: S1 and S2 reg, no murmurs, rubs or gallop Lungs: Clear to auscultation, no crackles, Abd: soft, tender mid to upper abdomen, non distended, normal BS Ext: No edema, no clubbing, no cyanosis, hard lesions plantar feet Neuro: AAO x 3, no focal signs, moves all extremities - Constitutional Vitals: Temp Pulse Resp BP Pulse Ox 97.9 F 102 H 18 164/86 94 02/17/19 07:36 02/17/19 07:36 02/17/19 07:36 02/17/19 07:36 02/17/19 07:36 General appearance: Present: no acute distress, well-nourished Results - Labs CBC & Chem 7: 02/15/19 00:42 02/16/19 07:39 Labs: Laboratory Last Values WBC 4.5 K/mm3 (4.5-11.0) 02/15/19 00:42 RBC 4.01 M/mm3 (3.65-5.03) 02/15/19 00:42 Hgb 12.8 gm/dl (10.1-14.3) 02/15/19 00:42 Hct 38.5 % (30.3-42.9) 02/15/19 00:42 MCV 96 fl (79-97) 02/15/19 00:42 MCH 32 pg (28-32) 02/15/19 00:42 MCHC 33 % (30-34) 02/15/19 00:42 RDW 14.8 % (13.2-15.2) 02/15/19 00:42 Plt Count 222 K/mm3 (140-440) 02/15/19 00:42 Lymph % (Auto) 19.1 % (13.4-35.0) 02/15/19 00:42 [place] % (Auto) 6.4 % (0.0-7.3) 02/15/19 00:42 Eos % (Auto) 5.7 % (0.0-4.3) H 02/15/19 00:42 Baso % (Auto) 1.1 % (0.0-1.8) 02/15/19 00:42 Lymph # 0.9 K/mm3 (1.2-5.4) L 02/15/19 00:42 Mcdowell # 0.3 K/mm3 (0.0-0.8) 02/15/19 00:42 Eos # 0.3 K/mm3 (0.0-0.4) 02/15/19 00:42 Baso # 0.0 K/mm3 (0.0-0.1) 02/15/19 00:42 Seg Neutrophils % 67.7 % (40.0-70.0) 02/15/19 00:42 Seg Neutrophils # 3.0 K/mm3 (1.8-7.7) 02/15/19 00:42 Sodium 145 mmol/L (137-145) 02/16/19 07:39 Potassium 4.3 mmol/L (3.6-5.0) 02/16/19 07:39 Chloride 102.9 mmol/L (98-107) 02/16/19 07:39 Carbon Dioxide 29 mmol/L (22-30) 02/16/19 07:39 Anion Gap 17 mmol/L 02/16/19 07:39 BUN 39 mg/dL (7-17) H 02/16/19 07:39 Creatinine 8.4 mg/dL (0.7-1.2) H D 02/16/19 07:39 Estimated GFR 7 ml/min 02/16/19 07:39 BUN/Creatinine Ratio 5 % 02/16/19 07:39 Glucose 131 mg/dL (65-100) H 02/16/19 07:39 POC Glucose 131 (70-105) H 02/17/19 07:37 Calcium 9.1 mg/dL (8.4-10.2) 02/16/19 07:39 Total Bilirubin 0.30 mg/dL (0.1-1.2) 02/15/19 00:42 AST 19 units/L (5-40) 02/15/19 00:42 ALT 14 units/L (7-56) 02/15/19 00:42 Alkaline Phosphatase 78 units/L (35-129) 02/15/19 00:42 Total Protein 7.3 g/dL (6.3-8.2) 02/15/19 00:42 Albumin 4.5 g/dL (3.9-5) 02/15/19 00:42 Albumin/Globulin Ratio 1.6 % 02/15/19 00:42 Lipase 17 units/L (13-60) 02/15/19 00:42 HCG, Qual Negative (Negative) 02/15/19 14:35 Urine Color Yellow (Yellow) 02/15/19 15:50 Urine Turbidity Clear (Clear) 02/15/19 15:50 Urine pH 8.0 (5.0-7.0) H 02/15/19 15:50 Ur Specific [place] 1.012 (1.003-1.030) 02/15/19 15:50 Urine Protein >500 mg/dL (Negative) 02/15/19 15:50 Urine Glucose (UA) >=500 mg/dL (Negative) 02/15/19 15:50 Urine Ketones Tr mg/dL (Negative) 02/15/19 15:50 Urine Blood Neg (Negative) 02/15/19 15:50 Urine Nitrite Neg (Negative) 02/15/19 15:50 Ur Reducing Substances Not Reportable 02/15/19 15:50 Urine Bilirubin Neg (Negative) 02/15/19 15:50 Urine Ictotest Not Reportable 02/15/19 15:50 Urine Urobilinogen < 2.0 mg/dL (<2.0) 02/15/19 15:50 Ur Leukocyte Esterase Neg (Negative) 02/15/19 15:50 Urine WBC (Auto) 1.0 /HPF (0.0-6.0) 02/15/19 15:50 Urine RBC (Auto) 4.0 /HPF (0.0-6.0) 02/15/19 15:50 U Epithel Cells (Auto) 3.0 /HPF (0-13.0) 02/15/19 15:50 Granular Casts 3 /LPF 02/15/19 15:50 Urine HCG, Qual Negative (Negative) 02/15/19 15:50 Active Medications - Current Medications Current Medications: Generic Name Dose Route Start Last Admin Trade Name Freq PRN Reason Stop Dose Admin Acetaminophen 650 mg 02/15/19 05:37 02/16/19 08:33 Tylenol PO 650 mg Q4H PRN Administration Pain MILD(1-3)/Fever >100.5/RODRIGUEZ Clonidine HCl 0.2 mg 02/17/19 10:00 02/17/19 11:18 Catapres-Tts Patch TD 0.2 mg Mo JAKOB Administration Dextrose 50 ml 02/15/19 06:04 D50w (25gm) Syringe IV PRN PRN Hypoglycemia Famotidine 10 mg 02/15/19 10:00 02/17/19 10:29 Pepcid IV 10 mg BID JAKOB Administration Heparin Sodium (Porcine) 5,000 unit 02/15/19 06:00 02/17/19 05:42 Heparin SUB-Q 5,000 unit Q8HR JAKOB Administration Hydralazine HCl 20 mg 02/15/19 05:41 Apresoline IV Q4HR PRN Blood Pressure Hydralazine HCl 50 mg 02/15/19 08:00 02/16/19 20:47 Apresoline PO 50 mg TID JAKOB Administration Sodium Chloride 1,000 mls @ 50 mls/hr 02/15/19 06:00 02/16/19 21:54 Nacl 0.9% 1000 Ml IV 50 mls/hr DIRECT JAKOB Administration Sodium Chloride 100 mls @ 999 mls/hr 02/16/19 07:28 Nacl 0.9% IV MEJIA PRN Hypotension Insulin Human Lispro 0 unit 02/15/19 12:00 02/17/19 08:02 Humalog SUB-Q Not Given Q6HR JAKOB Protocol Metoclopramide HCl 10 mg 02/17/19 11:30 02/17/19 10:29 Reglan IV 10 mg ACHS JAKOB Administration Metoprolol Tartrate 5 mg 02/15/19 18:00 02/17/19 05:38 Lopressor IV 5 mg Q6HR JAKOB Administration Ondansetron HCl 4 mg 02/15/19 05:37 02/17/19 06:59 Zofran IV 4 mg Q6H PRN Administration Nausea And Vomiting Promethazine HCl 25 mg 02/15/19 05:37 Phenergan NH Q6H PRN N/V IF NPO AND NO IV ACCESS Sodium Chloride 10 ml 02/15/19 10:00 02/17/19 10:31 Sodium Chloride Flush Syringe 10 Ml IV 10 ml BID JAKOB Administration Sodium Chloride 10 ml 02/15/19 05:37 Sodium Chloride Flush Syringe 10 Ml IV PRN PRN LINE FLUSH Zolpidem Tartrate 5 mg 02/15/19 05:37 Ambien PO QHS PRN Insomnia
[2019-02-17] MEDS ORDERED: ATIVAN IV PRN (12:00)
[2019-02-17] MEDS: APRESOLINE PO SCH ×3 (12:05→21:55)
[2019-02-17] MEDS ORDERED: ZOFRAN ONE (16:11)
[2019-02-17] MEDS ORDERED: NACL 0.9% 1000 ML 1,000 ML ONE (16:36)
[2019-02-17] MEDS ORDERED: NACL 0.9 (PRIMING MACHINE ONLY DIALYSIS) MC ONE (17:11)
[2019-02-17] MEDS: NACL 0.9% 1000 ML 1,000 ML IV SCH (21:58)
[2019-02-18] MEDS: LOPRESSOR IV SCH ×4 (00:33→18:15)
[2019-02-18] MEDS: HumaLOG SUB-Q SCH ×3 (00:33→12:00)
[2019-02-18] MEDS ORDERED: NACL 0.9% 1000 ML 1,000 ML IV SCH (06:00)
[2019-02-18] MEDS: HEPARIN SUB-Q SCH ×2 (06:57→14:30)
--- NOTE | 2019-02-18 07:21 | Anesthesia Consultation ---
Anesthesia Consult and Med Hx Date of service: 02/18/19 - Airway Anesthetic Teeth Evaluation: Poor (multiple broken teeth), Chipped ROM Head & Neck: Adequate Mental/Hyoid Distance: Adequate Mallampati Class: Class II Intubation Access Assessment: Probably Good - Pre-Operative Health Status ASA Pre-Surgery Classification: ASA3 Proposed Anesthetic Plan: MAC - Pulmonary Hx Smoking: No Hx Asthma: No COPD: No Hx Pneumonia: No - Cardiovascular System Hx Hypertension: Yes Hx Pacemaker: No Hx Internal Defibrillator: No - Central Nervous System Hx Seizures: Yes Hx Psychiatric Problems: Yes - Gastrointestinal Hx Ulcer: Yes (abdominal pain, N/V) Hx Gastroesophageal Reflux Disease: Yes (Gastroparesis) - Endocrine Hx Renal Disease: Yes Hx End Stage Renal Disease: Yes Hx Insulin Dependent Diabetes: Yes - Hematic Hx Anemia: Yes - Other Systems Hx Alcohol Use: No Hx Substance Use: No Hx Cancer: No
--- NOTE | 2019-02-18 07:23 | Anesthesia Day of Surgery ---
Anesthesia Day of Surgery - Day of Surgery Patient Examined: Yes Patient H&P Reviewed: Yes Patient is NPO: Yes Beta Blockers: Yes
[2019-02-18] MEDS ORDERED: DIPRIVAN 10 MG/ML IV ONE (07:30)
--- NOTE | 2019-02-18 07:53 | Operative Report ---
Operative Report Operative Report: Esophagogastroduodenoscopy Procedure Note Date of procedure: 02/18/2019 Endoscopist: Anastacio Novoa Pre-op diagnosis: Nausea/vomiting, abdominal pain Post-op diagnosis: Normal upper endoscopy Anesthesia: MAC Complications: No immediate complications Estimated blood loss: minimal Procedure: After consent was obtained, the patient was placed in the left lateral decubitus position. The fujinon endoscope was inserted into the patient's mouth under direct vision, and advanced into the 2nd portion of the duodenum without difficulty. The patient tolerated the procedure well. The views of the mucosa were good. Patient's vital signs were monitored continuously throughout the procedure. Findings: The esophagus appeared normal. The stomach appeared normal. No signs of peptic ulcer disease or gastric outlet obstruction. The duodenum appeared normal. Impression: 1. Normal upper endoscopy Recommendations: -diet as tolerated -diabetes management per primary team will sign off, please call as needed or with questions.
[2019-02-18] MEDS: APRESOLINE PO SCH ×2 (08:00→14:30)
[2019-02-18] MEDS ORDERED: REGLAN ONE (08:23)
[2019-02-18] MEDS: REGLAN IV SCH ×3 (08:30→16:45)
--- NOTE | 2019-02-18 08:48 | Progress Note ---
Assessment and Plan - Patient Problems (1) Diabetic gastropathy Current Visit: Yes Status: Acute Plan to address problem: Symptoms improved. SLR gastroduodenoscopy did not show any gastritis or ulcers or gastric outlet obstruction (2) Hypertensive urgency Current Visit: Yes Status: Acute Plan to address problem: Blood pressure labile due to intolerance of oral medications. Continue intravenous medications. Start oral antihypertensive medications (3) Intractable nausea and vomiting Current Visit: Yes Status: Acute Plan to address problem: Probably secondary to gastroparesis. Continue management (4) End stage renal disease Current Visit: No Status: Acute Plan to address problem: Hemodialysis on a Sunday, Sunday and Sunday schedule. We'll dialyze in the morning (5) Hypertensive chronic kidney disease with stage 5 chronic kidney disease or end stage renal disease Current Visit: No Status: Acute Plan to address problem: Follow-up blood pressure on adjusted medications (6) Type 1 diabetes mellitus with diabetic nephropathy Current Visit: No Status: Acute Plan to address problem: Continue insulin. Blood sugar management by primary attending Subjective Date of service: 02/18/19 Principal diagnosis: N/V Interval history: Patient seen lying in bed in the endoscopy suite. Just had esophagogastroduodenoscopy. It was normal. She feels better now. No nausea or vomiting. No pain Objective - Exam Narrative Exam: Young, comfortably lying in bed in no acute distress HEENT: NCAT, pink oral mucous membrane Neck: Supple, no venous distention CVS: S1S2 RRR with no murmur, rub or gallop Chest: Clear to auscultation Abdomen: Protuberant, soft, nontender, no organomegaly, bowel sounds are present Extremities: No edema Neuro: Awake, alert no focal deficits - Vital Signs Vital signs: Vital Signs - 12hr 02/17/19 02/17/19 02/18/19 21:54 21:55 00:21 Temperature 98.6 F 98.6 F Pulse Rate 100 H 100 H 102 H Respiratory 20 18 Rate Blood Pressure 126/75 126/75 105/55 O2 Sat by Pulse 97 97 Oximetry 02/18/19 02/18/19 02/18/19 00:33 01:00 05:05 Temperature 98.0 F Pulse Rate 102 H 131 H 98 H Respiratory 18 Rate Blood Pressure 105/55 116/70 O2 Sat by Pulse 88 Oximetry 02/18/19 02/18/1902/18/19 05:46 07:00 07:54 Temperature 98.6 F 99.3 F Pulse Rate 98 H 105 H 103 H Respiratory 15 11 L Rate Blood Pressure 116/70 149/93 136/73 O2 Sat by Pulse 97 97 Oximetry 02/18/19 02/18/19 08:09 08:24 Temperature Pulse Rate 112 H 105 H Respiratory 11 L 14 Rate Blood Pressure 145/94 159/102 O2 Sat by Pulse 97 97 Oximetry - Lab 02/15/19 00:42 02/16/19 07:39 Most recent lab results Calcium 9.1 mg/dL (8.4-10.2) 02/16/19 07:39 Medications & Allergies - Medications Allergies/Adverse Reactions: Allergies shellfish derived Allergy (Severe, Verified 12/11/18 09:58) Angioedema Home Medications: Home Medications Medication Instructions Recorded Confirmed Last Taken Type Furosemide [Lasix TAB] 40 mg PO DAILY 02/13/18 02/15/19 Unknown History hydrALAZINE [Apresoline TAB] 50 mg PO TID 02/13/18 02/15/19 Unknown History Metoprolol Xl [Metoprolol 50 mg PO QDAY 11/04/18 02/15/19 Unknown History SUCCINATE ER TAB] Active Medications: Generic Name Dose Route Start Last Admin Trade Name Freq PRN Reason Stop Dose Admin Acetaminophen 650 mg 02/15/19 05:37 02/16/19 08:33 Tylenol PO 650 mg Q4H PRN Administration Pain MILD(1-3)/Fever >100.5/RODRIGUEZ Clonidine HCl 0.2 mg 02/17/19 10:00 02/17/19 11:18 Catapres-Tts Patch TD 0.2 mg Mo JAKOB Administration Dextrose 50 ml 02/15/19 06:04 D50w (25gm) Syringe IV PRN PRN Hypoglycemia Famotidine 10 mg 02/15/19 10:00 02/17/19 21:56 Pepcid IV 10 mg BID JAKOB Administration Heparin Sodium (Porcine) 5,000 unit 02/15/19 06:00 02/18/19 06:57 Heparin SUB-Q Not Given Q8HR JAKOB Hydralazine HCl 20 mg 02/15/19 05:41 Apresoline IV Q4HR PRN Blood Pressure Hydralazine HCl 50 mg 02/15/19 08:00 02/17/19 21:55 Apresoline PO 50 mg TID JAKOB Administration Sodium Chloride 100 mls @ 999 mls/hr 02/16/19 07:28 Nacl 0.9% IV MEJIA PRN Hypotension Sodium Chloride 1,000 mls @ 50 mls/hr 02/18/19 06:00 Nacl 0.9% 1000 Ml IV DIRECT JAKOB Insulin Human Lispro 0 unit 02/15/19 12:00 02/18/19 06:57 Humalog SUB-Q Not Given Q6HR [facility] Protocol Lorazepam 0.5 mg 02/17/19 12:00 Ativan IV Q4H PRN Anxiety Metoclopramide HCl 10 mg 02/17/19 11:30 02/18/19 08:30 Reglan IV 10 mg ACHS JAKOB Administration Metoprolol Tartrate 5 mg 02/15/19 18:00 02/18/19 05:46 Lopressor IV 5 mg Q6HR JAKOB Administration Ondansetron HCl 4 mg 02/15/19 05:37 02/17/19 18:32 Zofran IV 4 mg Q6H PRN Administration Nausea And Vomiting Promethazine HCl 25 mg 02/15/19 05:37 Phenergan VA Q6H PRN N/V IF NPO AND NO IV ACCESS Sodium Chloride 10 ml 02/15/19 10:00 02/17/19 21:58 Sodium Chloride Flush Syringe 10 Ml IV 10 ml BID JAKOB Administration Sodium Chloride 10 ml 02/15/19 05:37 Sodium Chloride Flush Syringe 10 Ml IV PRN PRN LINE FLUSH Zolpidem Tartrate 5 mg 02/15/19 05:37 02/18/19 00:31 Ambien PO 5 mg QHS PRN Administration Insomnia
[2019-02-18] MEDS: SODIUM CHLORIDE FLUSH SYRINGE 10 ML IV SCH (10:55)
[2019-02-18] MEDS: PEPCID IV SCH (11:22)
--- NOTE | 2019-02-18 11:59 | Discharge Summary ---
Providers - Providers Date of Admission: 02/15/19 17:05 Date of discharge: 02/18/19 Attending physician: ASHLY FUNG 02/15/19 08:37 Consult to Physician [CONS] Routine Comment: Consulting Provider: AYAN AGUILAR Physician Instructions: Reason For Exam: ESRD 02/15/19 14:21 Consult to Physician [CONS] Urgent Comment: Consulting Provider: DAYA HILL Physician Instructions: Reason For Exam: nausea, vomiting,poss gastroparesis 02/16/19 16:42 Midline [Consult to PICC Line RN] [CONS] Urgent Reason For Exam: mid-line placement/ double lumen Type Line:: Midline Primary care physician: CHIMNEY BUILDER BRICK Hospitalization Reason for admission: N/V Condition: Stable Pertinent studies: CXR Abdomen/pelvis CT scan Procedures: EGD Findings: The esophagus appeared normal. The stomach appeared normal. No signs of peptic ulcer disease or gastric outlet obstruction. The duodenum appeared normal. Impression: 1. Normal upper endoscopy Recommendations: -diet as tolerated -diabetes management per primary team Hospital course: Patient is a 28-year-old -[place] female with a history of diabetes mellitus type 1, gastroparesis and end-stage renal disease on hemodialysis who presented to the ED on account of 2 days history of nausea and vomiting times multiple episodes. She was placed on Reglan, Zofran. GI consulted, s/p EGD showed normal gastric anatomy. GI recommended medical management for gastroparesis. Patient was then discharged home in stable condition. Discharge diagnosis and management: /Gastroparesis, due to DM type 1 Continue Reglan /Nausea, vomiting, abdomen pain Due to gastroparesis Symptom managed with reglan /ESRD on hemodialysis consulted nephrology for HD /Htn, Monitored BP, stable /Seizure disorder, seizure precautions, cont AED Hospitalist Physical: Gen: Not in acute distress, sitting up in bed, obese HEENT: Normocephalic, atraumatic Neck:supple, no JVD Heart: S1 and S2 reg, no murmurs, rubs or gallop Lungs: Clear to auscultation, no crackles, Abd: soft, tender mid to upper abdomen, non distended, normal BS Ext: No edema, no clubbing, no cyanosis, hard lesions plantar feet Neuro: AAO x 3, no focal signs, moves all extremities Disposition: TO HOME OR SELFCARE Time spent for discharge: 34 minutes Core Measure Documentation - Palliative Care Palliative Care/ Comfort Measures: Not Applicable - Core Measures Any of the following diagnoses?: none Exam - Constitutional Vitals: Temp Pulse Resp BP Pulse Ox 99.3 F 110 H 14 159/102 97 02/18/19 07:54 02/18/19 09:00 02/18/19 08:24 02/18/19 08:24 02/18/19 08:24 Plan Activity: advance as tolerated Weight Bearing Status: Weight Bear as Tolerated Diet: diabetic (small frequent meal with low Na and low k) Special Instructions: record blood sugar diary Follow up with: PRIMARY CARE, [Primary Care Provider] - 3-5 Days
[2019-02-18] MEDS ORDERED: CATAPRES-TTS PATCH TD SCH (14:00)
[2019-02-18 19:48] VITALS: BP 142/95
== END 2019-02-18 21:30 | disposition home or self-care (01) | DRG 73 ==
LOC: ED 23:16 → 4A 02-15 05:37 → INTOOBSV 02-15 05:37 → OBSVTOIN 02-15 17:05
PROVIDERS: ADMIT Internal Medicine; ATTEND Internal Medicine
PROC: 5A1D70Z Performance of Urinary Filtration, Intermittent, Less than 6 Hours Per Day (ICD-10-PCS; 2019-02-17)
PROC: 0DJ08ZZ Inspection of Upper Intestinal Tract, Via Natural or Artificial Opening Endoscopic (ICD-10-PCS; principal; 2019-02-18)
DX: E10.43 Type 1 diabetes mellitus with diabetic autonomic (poly)neuropathy (principal); N18.6 End stage renal disease; K31.9 Disease of stomach and duodenum, unspecified; E10.40 Type 1 diabetes mellitus with diabetic neuropathy, unspecified; K31.84 Gastroparesis; I16.0 Hypertensive urgency; I12.0 Hypertensive chronic kidney disease with stage 5 chronic kidney disease or end stage renal disease; E83.52 Hypercalcemia; G40.909 Epilepsy, unspecified, not intractable, without status epilepticus; E66.9 Obesity, unspecified; Z91.013 Allergy to seafood; Z83.3 Family history of diabetes mellitus; Z82.49 Family history of ischemic heart disease and other diseases of the circulatory system; Z68.30 Body mass index [BMI] 30.0-30.9, adult
CPT/HCPCS: 36415; 71045; 74176; 80048; 80053; 81001; 81025; 82962; 83690; 84703; 85025; 87116; G0378; J0360; J1170; J1644; J1815; J2060; J2405; J2704; J2765; J7030

== ENCOUNTER 2019-04-05 12:41 | Emergency (ER) | payer MEDICAID ==
[2019-04-05] MEDS ORDERED: REGLAN IV ONE (13:08)
[2019-04-05] MEDS ORDERED: DILAUDID IV ONE ×2 (13:08→15:09)
--- NOTE | 2019-04-05 13:14 | Emergency Department Report ---
ED General Adult HPI - General Chief complaint: Nausea/Vomiting/Diarrhea Stated complaint: NAUSEA/VOMITING Time Seen by Provider: 04/05/19 13:07 Source: patient, EMS Mode of arrival: Stretcher Limitations: No Limitations - History of Present Illness Initial comments: Patient is a 28-year-old female asked with a history of end-stage renal disease on dialysis who presents with nausea and vomiting and abdominal pain. Patient states that she's been having nausea and abdominal pain for the last day she also states that nothing makes it better and nothing makes it worse. Her abdominal pain as an 8 out of 10. Severity scale (0 -10): 8 - Related Data Home Medications Medication Instructions Recorded Confirmed Last Taken Furosemide [Lasix TAB] 40 mg PO DAILY 02/13/18 03/13/19 03/10/19 hydrALAZINE [Apresoline TAB] 50 mg PO TID 02/13/18 03/13/19 03/10/19 Metoprolol Xl [Metoprolol 50 mg PO QDAY 11/04/18 03/13/19 03/10/19 SUCCINATE ER TAB] Previous Rx's Medication Instructions Recorded Last Taken Type cephALEXin [Keflex] 500 mg PO Q12HR #20 cap 03/14/19 Unknown Rx Allergies Allergy/AdvReac Type Severity Reaction Status Date / Time shellfish derived Allergy Severe Angioedema Verified 12/11/18 09:58 ED Review of Systems ROS: Stated complaint: NAUSEA/VOMITING Other details as noted in HPI Constitutional: denies: chills, fever Eyes: denies: eye pain, eye discharge, vision change ENT: denies: ear pain, throat pain Respiratory: denies: cough, shortness of breath, wheezing Cardiovascular: denies: chest pain, palpitations Endocrine: no symptoms reported Gastrointestinal: abdominal pain, nausea, vomiting. denies: diarrhea Genitourinary: denies: urgency, dysuria, discharge Musculoskeletal: denies: back pain, joint swelling, arthralgia Skin: denies: rash, lesions Neurological: denies: headache, weakness, paresthesias Psychiatric: denies: anxiety, depression Hematological/Lymphatic: denies: easy bleeding, easy bruising ED Past Medical Hx - Past Medical History Previous Medical History?: Yes Hx Hypertension: Yes Hx Congestive Heart Failure: No Hx Diabetes: Yes (type 1 (insulin)) Hx Deep Vein Thrombosis: No Hx Renal Disease: Yes (m/w/f) Hx Seizures: Yes Hx Asthma: No Hx COPD: No Hx HIV: No Additional medical history: gastroparesis - Surgical History Past Surgical History?: Yes Hx Pacemaker: No Hx Internal Defibrillator: No Additional Surgical History: Cataract surgery-bilat. 2012. vas cath right chest wall. left upper arm fistula - Social History Smoking Status: Never Smoker Substance Use Type: None - Medications Home Medications: Home Medications Medication Instructions Recorded Confirmed Last Taken Type Furosemide [Lasix TAB] 40 mg PO DAILY 02/13/18 03/13/19 03/10/19 History hydrALAZINE [Apresoline TAB] 50 mg PO TID 02/13/18 03/13/19 03/10/19 History Metoprolol Xl [Metoprolol 50 mg PO QDAY 11/04/18 03/13/19 03/10/19 History SUCCINATE ER TAB] cephALEXin [Keflex] 500 mg PO Q12HR #20 cap 03/14/19 Unknown Rx ED Physical Exam - General Limitations: No Limitations General appearance: alert, in no apparent distress - Head Head exam: Present: atraumatic, normocephalic - Eye Eye exam: Present: normal appearance - ENT ENT exam: Present: mucous membranes moist - Neck Neck exam: Present: normal inspection - Respiratory Respiratory exam: Present: normal lung sounds bilaterally. Absent: respiratory distress - Cardiovascular Cardiovascular Exam: Present: regular rate, normal rhythm. Absent: systolic murmur, diastolic murmur, rubs, gallop - GI/Abdominal GI/Abdominal exam: Present: soft, normal bowel sounds - Extremities Exam Extremities exam: Present: normal inspection - Back Exam Back exam: Present: normal inspection - Neurological Exam Neurological exam: Present: alert, oriented X3 - Psychiatric Psychiatric exam: Present: normal affect, normal mood - Skin Skin exam: Present: warm, dry, intact, normal color. Absent: rash ED Course Vital Signs 04/05/19 04/05/19 04/05/19 12:45 12:56 13:28 Temperature 97.7 F 98.5 F Pulse Rate 98 H 99 H Respiratory 14 14 16 Rate Blood Pressure 201/104 Blood Pressure 201/104 195/118 [Right] O2 Sat by Pulse 98 98 98 Oximetry ED Medical Decision Making - Lab Data Result diagrams: 04/05/19 13:21 04/05/19 13:21 Lab Results 04/05/19 04/05/19 Range/Units 13:21 13:21 WBC 5.0 (4.5-11.0) K/mm3 RBC 3.94 (3.65-5.03) M/mm3 Hgb 12.4 (10.1-14.3) gm/dl Hct 38.0 (30.3-42.9) % MCV 97 (79-97) fl MCH 32 (28-32) pg MCHC 33 (30-34) % RDW 15.2 (13.2-15.2) % Plt Count 183 (140-440) K/mm3 Lymph % (Auto) 20.0 (13.4-35.0) % Will % (Auto) 5.1 (0.0-7.3) % Eos % (Auto) 0.9 (0.0-4.3) % Baso % (Auto) 1.0 (0.0-1.8) % Lymph # 1.0 L (1.2-5.4) K/mm3 Will # 0.3 (0.0-0.8) K/mm3 Eos # 0.0 (0.0-0.4) K/mm3 Baso # 0.0 (0.0-0.1) K/mm3 Seg Neutrophils % 73.0 H (40.0-70.0) % Seg Neutrophils # 3.6 (1.8-7.7) K/mm3 Sodium 143 (137-145) mmol/L Potassium 4.4 (3.6-5.0) mmol/L Chloride 100.3 (98-107) mmol/L Carbon Dioxide 21 L (22-30) mmol/L Anion Gap 26 mmol/L BUN 30 H (7-17) mg/dL Creatinine 6.4 H (0.7-1.2) mg/dL Estimated GFR 9 ml/min BUN/Creatinine Ratio 5 % Glucose 151 H (65-100) mg/dL Calcium 11.1 H (8.4-10.2) mg/dL Total Bilirubin 0.30 (0.1-1.2) mg/dL AST 16 (5-40) units/L ALT 9 (7-56) units/L Alkaline Phosphatase 70 (35-129) units/L Total Protein 8.0 (6.3-8.2) g/dL Albumin 4.4 (3.9-5) g/dL Albumin/Globulin Ratio 1.2 % - Medical Decision Making Chief medical diagnosis: Diabetic gastroparesis Differential medical diagnosis electrolyte abnormality, anemia IV pain medicine IV fluids CBC and BMP Patient's vomiting has subsided and her pain is a lot better. Diagnostic workup was unremarkable.Patient's diagnostic workup is unremarkable discussed discharge plan with patient. Patient agrees with plan additional verbal di scharge instructions were given. Critical care attestation.: If time is entered above; I have spent that time in minutes in the direct care of this critically ill patient, excluding procedure time. ED Disposition Clinical Impression: Dehydration, Gastroparesis, Diabetic gastropathy, Type 1 diabetes mellitus with diabetic nephropathy HTN (hypertension) Qualifiers: Hypertension type: essential hypertension Qualified Code(s): I10 - Essential (primary) hypertension Disposition: DC-01 TO HOME OR SELFCARE Is pt being admited?: No Does the pt Need Aspirin: No Condition: Stable Instructions: Hypertension (ED), Diabetes Mellitus Type 2 in Adults (ED) Referrals: AYAN AGUILAR MD [Primary Care Provider] - 3-5 Days
[2019-04-05 14:13] LABS: Albumin 4.4 g/dL (3.9-5); Calcium 11.1 mg/dL (8.4-10.2)
[2019-04-05 14:28] LABS: Eosinophils % (Auto) 0.9 % (0.0-4.3); Hemoglobin 12.4 gm/dl (10.1-14.3); Mean Corpuscular HGB Conc 33 % (30-34); Mean Corpuscular Volume 97 fl (79-97); Monocytes # (Auto) 0.3 K/mm3 (0.0-0.8); Monocytes % (Auto) 5.1 % (0.0-7.3); Platelet Count 183 K/mm3 (140-440); Red Blood Count 3.94 M/mm3 (3.65-5.03); Red Cell Distribution Width 15.2 % (13.2-15.2)
[2019-04-05] MEDS ORDERED: ZOFRAN IV ONE (15:03)
[2019-04-05] MEDS ORDERED: PHENERGAN PO ONE (15:04)
[2019-04-05] MEDS ORDERED: HALDOL IM ONE (15:09)
[2019-04-05] MEDS ORDERED: BENADRYL IV ONE (15:10)
[2019-04-05 18:37] VITALS: BP 174/93
== END 2019-04-05 18:38 | disposition home or self-care (01) ==
LOC: ED 12:41
DX: E10.43 Type 1 diabetes mellitus with diabetic autonomic (poly)neuropathy (principal); K31.84 Gastroparesis; K31.9 Disease of stomach and duodenum, unspecified; E10.21 Type 1 diabetes mellitus with diabetic nephropathy; I12.0 Hypertensive chronic kidney disease with stage 5 chronic kidney disease or end stage renal disease; E10.22 Type 1 diabetes mellitus with diabetic chronic kidney disease; N18.6 End stage renal disease; E86.0 Dehydration; Z99.2 Dependence on renal dialysis; Z79.4 Long term (current) use of insulin; Z98.890 Other specified postprocedural states; Z91.013 Allergy to seafood; Z88.5 Allergy status to narcotic agent
CPT/HCPCS: 36415; 80053; 85025; 96372; 96374; 96375; 96376; 99284; J1170; J1630; J2405; J2765; Q0169

== ENCOUNTER 2019-04-05 23:10 | Emergency (ER) | payer MEDICAID ==
[2019-04-05 23:36] VITALS: BP 136/85
[2019-04-06 00:08] LABS: Basophils # (Auto) 0.1 K/mm3 (0.0-0.1); Basophils % (Auto) 1.1 % (0.0-1.8); Eosinophils % (Auto) 0.1 % (0.0-4.3); Hematocrit 38.7 % (30.3-42.9); Hemoglobin 12.5 gm/dl (10.1-14.3); Lymphocytes # (Auto) 0.6 K/mm3 (1.2-5.4); Mean Corpuscular HGB Conc 33 % (30-34); Mean Corpuscular Volume 98 fl (79-97); Monocytes # (Auto) 0.1 K/mm3 (0.0-0.8); Monocytes % (Auto) 1.6 % (0.0-7.3); Platelet Count 216 K/mm3 (140-440); Red Blood Count 3.93 M/mm3 (3.65-5.03); Red Cell Distribution Width 15.9 % (13.2-15.2)
[2019-04-06 00:33] LABS: Calcium 10.7 mg/dL (8.4-10.2)
--- NOTE | 2019-04-10 09:54 | Emergency Department Report ---
Blank Doc - Documentation Documentation: Patient left without being seen
== END 2019-04-06 01:55 | disposition left against medical advice (07) ==
LOC: ED 23:10
DX: R11.10 Vomiting, unspecified (principal); Z53.21 Procedure and treatment not carried out due to patient leaving prior to being seen by health care provider
CPT/HCPCS: 36415; 80048; 85025

== ENCOUNTER 2019-04-06 09:55 | Emergency (ER) | payer MEDICAID ==
[2019-04-06] MEDS ORDERED: PEPCID IV ONE (10:41)
[2019-04-06] MEDS ORDERED: BENTYL IM ONE (10:41)
[2019-04-06] MEDS ORDERED: APRESOLINE IV ONE (10:41)
[2019-04-06] MEDS ORDERED: HALDOL IM STA (10:41)
--- NOTE | 2019-04-06 10:43 | Emergency Department Report ---
ED General Adult HPI - General Chief complaint: Altered Mental Status Stated complaint: MH EVAL Time Seen by Provider: 04/06/19 10:30 Source: patient, EMS (ems notes not available at time of chart dictation), RN notes reviewed, old records reviewed Mode of arrival: Stretcher Limitations: Physical Limitation - History of Present Illness Initial comments: Nephrology: Dr. Patel This is a 28-year-old female. Her past medical history includes end-stage renal disease, on dialysis, Sunday, Sunday, Sunday. Also has a history of hypertension, gastroparesis, hypoalbuminemia. The patient presents to the emergency room today with a complaint of diffuse abdominal pain, nausea or vomiting, weakness. She reports that she is not . She thinks that she fell and hit her head, but she is not certain. She denies headache and neck pain. She makes no complaint of chest pain. She makes no complaint of shortness of breath. She makes no complaint of focal extremity weakness or numbness. She denies dysuria. Her abdominal pain is aching, sharp and constant. She indicates that it is all over. It reportedly increases with palpation, and decreases with rest, and pain medication. Next Of note, the patient presented yesterday, and was seen by my colleague, Dr. Shayne Barba, who performed a thorough and extensive workup on her. Furthermore, the patient presented later on last night, and apparently eloped or did not answer. -: Gradual Radiation: abdomen Quality: other Consistency: other Improves with: other Worsens with: other - Related Data Home Medications Medication Instructions Recorded Confirmed Last Taken hydrALAZINE [Apresoline TAB] 50 mg PO TID 02/13/18 04/06/19 04/05/19 Metoprolol Xl [Metoprolol 50 mg PO QDAY 11/04/18 04/06/19 04/05/19 SUCCINATE ER TAB] Insulin NPH Human Isophane 20 unit SQ ACHS 04/06/19 04/06/19 Unknown [HumuLIN N] Insulin Regular, Human [HumuLIN R] 20 unit SQ [facility] 04/06/19 04/06/19 Unknown Previous Rx's Medication Instructions Recorded Last Taken Type Dicyclomine [Bentyl] 10 mg PO QID PRN #20 capsule 04/06/19 Unknown Rx Famotidine [Pepcid] 20 mg PO BID #30 tablet 04/06/19 Unknown Rx Metoclopramide [Reglan] 10 mg PO QID PRN #30 tablet 04/06/19 Unknown Rx Promethazine [Phenergan SUPPOS] 50 mg VA Q6H PRN #20 supp.rect 04/06/19 Unknown Rx Allergies Allergy/AdvReac Type Severity Reaction Status Date / Time shellfish derived Allergy Severe Angioedema Verified 12/11/18 09:58 hydrocodone Allergy Unknown Verified 04/06/19 10:25 ED Review of Systems ROS: Stated complaint: MH EVAL Other details as noted in HPI Constitutional: malaise Eyes: denies: eye discharge ENT: denies: epistaxis Respiratory: denies: wheezing Cardiovascular: denies: syncope Gastrointestinal: abdominal pain, nausea Genitourinary: denies: dysuria Musculoskeletal: arthralgia Skin: denies: lesions Neurological: weakness Psychiatric: anxiety ED Past Medical Hx - Past Medical History Previous Medical History?: Yes Hx Hypertension: Yes Hx Congestive Heart Failure: No Hx Diabetes: Yes (type 1 (insulin)) Hx Deep Vein Thrombosis: No Hx Renal Disease: Yes (m/w/f) Hx Seizures: Yes Hx Asthma: No Hx COPD: No Hx HIV: No Additional medical history: gastroparesis - Surgical History Hx Pacemaker: No Hx Internal Defibrillator: No Additional Surgical History: Cataract surgery-bilat. 2012. vas cath right chest wall. left upper arm fistula - Social History Smoking Status: Never Smoker - Medications Home Medications: Home Medications Medication Instructions Recorded Confirmed Last Taken Type hydrALAZINE [Apresoline TAB] 50 mg PO TID 02/13/18 04/06/19 04/05/19 History Metoprolol Xl [Metoprolol 50 mg PO QDAY 11/04/18 04/06/19 04/05/19 History SUCCINATE ER TAB] Dicyclomine [Bentyl] 10 mg PO QID PRN #20 capsule 04/06/19 Unknown Rx Famotidine [Pepcid] 20 mg PO BID #30 tablet 04/06/19 Unknown Rx Insulin NPH Human Isophane 20 unit SQ ACHS 04/06/19 04/06/19 Unknown History [HumuLIN N] Insulin Regular, Human [HumuLIN R] 20 unit SQ ACHS 04/06/19 04/06/19 Unknown History Metoclopramide [Reglan] 10 mg PO QID PRN #30 tablet 04/06/19 Unknown Rx Promethazine [Phenergan SUPPOS] 50 mg VA Q6H PRN #20 supp.rect 04/06/19 Unknown Rx ED Physical Exam - General Limitations: No Limitations General appearance: alert, anxious, in distress - Head Head exam: Present: atraumatic, normocephalic - Eye Eye exam: Present: normal appearance, EOMI. Absent: nystagmus - ENT ENT exam: Present: normal exam, normal orophraynx, mucous membranes moist, normal external ear exam - Neck Neck exam: Present: normal inspection, full ROM. Absent: tenderness, meningismu s - Respiratory Respiratory exam: Present: normal lung sounds bilaterally, other (there is right-sided permacath noted, with no redness, pus or streaking). Absent: respiratory distress, chest wall tenderness - Cardiovascular Cardiovascular Exam: Present: normal rhythm, tachycardia, systolic murmur ( 2/6 murmur is noted). Absent: diastolic murmur, rubs, gallop - GI/Abdominal GI/Abdominal exam: Present: soft. Absent: distended, tenderness, guarding, rebound, rigid, pulsatile mass - Extremities Exam Extremities exam: Present: normal inspection, full ROM, other (2+ pulses noted in the bilateral upper, lower extremities. Compartments soft. No long bony tenderness. The pelvis is stable.). Absent: calf tenderness - Back Exam Back exam: Present: normal inspection, full ROM. Absent: tenderness, CVA tenderness (R), CVA tenderness (L), paraspinal tenderness, vertebral tenderness - Neurological Exam Neurological exam: Present: alert, other (Extraocular movements intact. Tongue midline. No facial droop. Facial sensation intact to light touch in the V1, V2, V3 distribution bilaterally. 5 and 5 strength in 4 extremities.. Sensation is intact to light touch in 4 extremities.). Absent: motor sensory deficit - Psychiatric Psychiatric exam: Present: anxious - Skin Skin exam: Present: warm, dry, intact, normal color. Absent: rash ED Course Vital Signs 04/06/19 04/06/19 04/06/19 10:21 10:29 11:05 Temperature 98.5 F Pulse Rate 107 H 97 H Respiratory 16 18 Rate Blood Pressure 210/119 196/136 Blood Pressure [Right] O2 Sat by Pulse 100 98 Oximetry 04/06/19 04/06/19 04/06/19 11:30 12:00 13:15 Temperature Pulse Rate 100 H 107 H 100 H Respiratory 18 16 Rate Blood Pressure 200/104 Blood Pressure 197/113 200/104 [Right] O2 Sat by Pulse 99 98 Oximetry 04/06/19 04/06/19 04/06/19 13:30 14:00 14:20 Temperature Pulse Rate 95 H 101 H 101 H Respiratory 16 18 Rate Blood Pressure 167/92 Blood Pressure 149/79 167/92 [Right] O2 Sat by Pulse 98 98 Oximetry 04/06/19 15:00 Temperature Pulse Rate 99 H Respiratory 16 Rate Blood Pressure 133/73 Blood Pressure 133/73 [Right] O2 Sat by Pulse 99 Oximetry - Reevaluation(s) Reevaluation #1: 04/06/19 11:08 Differential diagnosis, including but not limited to: Gastroparesis flare/exacerbation, uremia, azotemia, kalemia, chronic hypertension Assessment and plan: 28-year-old female with complaint of abdominal pain, nausea, vomiting, does not appear to be altered on my examination, had a similar presentation yesterday. We will treat the patient's presumed gastroparesis with haloperidol. The katie ent will also be given Bentyl, Pepcid. Screening laboratory studies, EKG, noncontrast CT scan of the brain, abdomen/pelvis have been ordered and are pending at this time. Do not anticipate acute surgical condition at this time. Elevated blood pressure reviewed and appreciated, this is a chronic condition, and we will give the patient hydralazine. Reevaluation #2: 04/06/19 12:46 Laboratory studies reviewed and appreciated. No laboratory indication for emergent dialysis. Vomiting has resolved. Patient resting comfortably on stretcher. Chronically hypertensive. We will administer labetalol. X-ray of the chest appears to be unremarkable. CT scan of the brain, abdomen and pelvis pending interpretation. Reevaluation #3: 04/06/19 15:13 Patient tolerating oral feeds and oral medications. Blood pressure is improved. CT scan of the brain is negative for acute disease. Patient can follow up for dialysis tomorrow. Patient is observed in the emergency room for a few hours, without clinical decompensation and is medically appropriate to be discharged with outpatient follow-up. ED Medical Decision Making - Lab Data Result diagrams: 04/06/19 11:03 04/06/19 11:03 Vital Signs 04/06/19 04/06/19 04/06/19 10:21 10:29 11:05 Temperature 98.5 F Pulse Rate 107 H 97 H Respiratory 16 18 Rate Blood Pressure 210/119 196/136 O2 Sat by Pulse 100 98 Oximetry Lab Results 04/06/19 04/06/19 04/06/19 Range/Units 11:03 11:03 11:03 WBC 12.4 H (4.5-11.0) K/mm3 RBC 4.26 (3.65-5.03) M/mm3 Hgb 13.4 (10.1-14.3) gm/dl Hct 41.2 (30.3-42.9) % MCV 97 (79-97) fl MCH 31 (28-32) pg MCHC 32 (30-34) % RDW 15.4 H (13.2-15.2) % Plt Count 213 (140-440) K/mm3 Sodium 145 (137-145) mmol/L Potassium 4.6 (3.6-5.0) mmol/L Chloride 96.9 L (98-107) mmol/L Carbon Dioxide 23 (22-30) mmol/L Anion Gap 30 mmol/L BUN 48 H (7-17) mg/dL Creatinine 8.4 H (0.7-1.2) mg/dL Estimated GFR 7 ml/min BUN/Creatinine Ratio 6 % Glucose 227 H (65-100) mg/dL Calcium 10.5 H (8.4-10.2) mg/dL Magnesium 2.40 H (1.7-2.3) mg/dL HCG, Quant < 2 (0-4) mIU/mL Salicylates (2.8-20.0) mg/dL Acetaminophen (10.0-30.0) ug/mL 04/06/19 04/06/19 Range/Units 11:03 11:03 WBC (4.5-11.0) K/mm3 RBC (3.65-5.03) M/mm3 Hgb (10.1-14.3) gm/dl Hct (30.3-42.9) % MCV (79-97) fl MCH (28-32) pg MCHC (30-34) % RDW (13.2-15.2) % Plt Count (140-440) K/mm3 Sodium (137-145) mmol/L Potassium (3.6-5.0) mmol/L Chloride (98-107) mmol/L Carbon Dioxide (22-30) mmol/L Anion Gap mmol/L BUN (7-17) mg/dL Creatinine (0.7-1.2) mg/dL Estimated GFR ml/min BUN/Creatinine Ratio % Glucose (65-100) mg/dL Calcium (8.4-10.2) mg/dL Magnesium (1.7-2.3) mg/dL HCG, Quant (0-4) mIU/mL Salicylates < 0.3 L (2.8-20.0) mg/dL Acetaminophen < 5.0 L (10.0-30.0) ug/mL Lab Results 04/06/19 04/06/19 04/06/19 Range/Units 11:03 11:03 11:03 WBC 12.4 H (4.5-11.0) K/mm3 RBC 4.26 (3.65-5.03) M/mm3 Hgb 13.4 (10.1-14.3) gm/dl Hct 41.2 (30.3-42.9) % MCV 97 (79-97) fl MCH 31 (28-32) pg MCHC 32 (30-34) % RDW 15.4 H (13.2-15.2) % Plt Count 213 (140-440) K/mm3 Sodium 145 (137-145) mmol/L Potassium 4.6 (3.6-5.0) mmol/L Chloride 96.9 L (98-107) mmol/L Carbon Dioxide 23 (22-30) mmol/L Anion Gap 30 mmol/L BUN 48 H (7-17) mg/dL Creatinine 8.4 H (0.7-1.2) mg/dL Estimated GFR 7 ml/min BUN/Creatinine Ratio 6 % Glucose 227 H (65-100) mg/dL Calcium 10.5 H (8.4-10.2) mg/dL Magnesium 2.40 H (1.7-2.3) mg/dL HCG, Quant < 2 (0-4) mIU/mL Salicylates (2.8-20.0) mg/dL Acetaminophen (10.0-30.0) ug/mL 04/06/19 04/06/19 Range/Units 11:03 11:03 WBC (4.5-11.0) K/mm3 RBC (3.65-5.03) M/mm3 Hgb (10.1-14.3) gm/dl Hct (30.3-42.9) % MCV (79-97) fl MCH (28-32) pg MCHC (30-34) % RDW (13.2-15.2) % Plt Count (140-440) K/mm3 Sodium (137-145) mmol/L Potassium (3.6-5.0) mmol/L Chloride (98-107) mmol/L Carbon Dioxide (22-30) mmol/L Anion Gap mmol/L BUN (7-17) mg/dL Creatinine (0.7-1.2) mg/dL Estimated GFR ml/min BUN/Creatinine Ratio % Glucose (65-100) mg/dL Calcium (8.4-10.2) mg/dL Magnesium (1.7-2.3) mg/dL HCG, Quant (0-4) mIU/mL Salicylates < 0.3 L (2.8-20.0) mg/dL Acetaminophen < 5.0 L (10.0-30.0) ug/mL Vital Signs 04/06/19 04/06/19 04/06/19 10:21 10:29 11:05 Temperature 98.5 F Pulse Rate 107 H 97 H Respiratory 16 18 Rate Blood Pressure 210/119 196/136 Blood Pressure [Right] O2 Sat by Pulse 100 98 Oximetry 04/06/19 04/06/19 11:30 12:00 Temperature Pulse Rate 100 H 107 H Respiratory 18 16 Rate Blood Pressure Blood Pressure 197/113 200/104 [Right] O2 Sat by Pulse 99 98 Oximetry - EKG Data -: EKG Interpreted by Me EKG shows normal: sinus rhythm Rate: tachycardia - EKG Data 04/06/19 15:14 EKG shows sinus tachycardia, 111 bpm, normal axis, QTC prolonged, high left ventricular voltage, no endorsement of chest pain, this is an abnormal EKG, this EKG is not consistent with ST elevation myocardial infarction. - Radiology Data Radiology results: report reviewed, image reviewed interpreted by me: X-ray of the chest is negative for acute disease. Right-sided permacath is noted. Chronic mild pulmonary vascular congestion is appreciated. nt Report Referring Physician: ANDREY MARROQUIN Patient Name: LIZBETH VIZCAINO Date of : 1990 Sex: Female Report Date: 2019-04-06 Report Status: Finalized Findings [facility] [address] [place] [address] Cat Scan Report Signed Patient: LIZBETH VIZCAINO MR# : [id number] : 1990 Acct:[id number] Age/Sex: 28 / F ADM Date: 04/06/19 Loc: ED Attending Dr: Ordering Physician: ANDREY MARROQUIN MD Date of Service: 04/06/19 Procedure(s): CT abdomen pelvis wo con Accession Number(s): [id number] cc: ANDREY MARROQUIN MD PROCEDURE: CT ABDOMEN PELVIS WO CON TECHNIQUE: Axial images obtained abdomen without intravenous contrast. Sagittal coronal reformatted images obtained. HISTORY: abd pain n/v COMPARISONS: Abdominal pelvic CT February 15, 2019 FINDINGS: Basilar aeration improved. Minimal residual atelectasis. No effusion. Stable cardiomegaly Liver, spleen and pancreas unremarkable noncontrast appearance Cholelithiasis reidentified; stable Adrenal glands unremarkable. Kidneys demonstrate no calculus. No hydronephrosis. Normal contour. Ureters are nondilated. Bladder appears unremarkable. Retroverted uterus. No adnexal mass. Aorta normal caliber. No significant atherosclerotic calcification. No retroperitoneal adenopathy Dense stool rectosigmoid suggesting constipation. No bowel obstruction. No free air. No free fluid. No diverticulosis. No diverticulitis. Normal appendix. Omentum and mesentery unremarkable. No acute bony abnormality IMPRESSION: No acute abdominal pelvic abnormality No free air. No free fluid No bowel obstruction Colonic stool suggesting constipation No acute inflammatory change. Normal appendix No renal or ureteral calculus. No hydronephrosis Stable cholelithiasis. This document is electronically signed by Angelo Wray MD., April 06 2019 03:00:17 PM ET Transcribed By: HJ Dictated By: ANGELO WRAY MD Electronically Authenticated By: ANGELO WRAY MD Signed Date/Time: 04/06/19 4352 Critical care attestation.: If time is entered above; I have spent that time in minutes in the direct care of this critically ill patient, excluding procedure time. ED Disposition Clinical Impression: Gastroparesis, End stage renal disease, HTN (hypertension) Disposition: DC-01 TO HOME OR SELFCARE Is pt being admited?: No Does the pt Need Aspirin: No Condition: Stable Instructions: Hypertension (ED) Additional Instructions: Avoid consumption of Motrin, ibuprofen, Naprosyn, Aleve, heavy, spicy foods. Follow-up for outpatient dialysis tomorrow as scheduled. Follow up with a print line operator for abdominal pain within the next 2 weeks. Please note that blood pressure was elevated in the emergency room. This should be followed up by a primary care doctor or nephrology doctor within the next month. Long-term complications of hypertension and elevated blood pressure include stroke, heart attack, disability, paralysis, loss of quality of life. Please return to the emergency room right away with new, worsening or different symptoms, or symptoms not present on the initial emergency room evaluation. Prescriptions: Dicyclomine [Bentyl] 10 mg PO QID PRN #20 capsule PRN Reason: Pain Famotidine [Pepcid] 20 mg PO BID #30 tablet Promethazine [Phenergan SUPPOS] 50 mg VA Q6H PRN #20 supp.rect PRN Reason: Nausea Metoclopramide [Reglan] 10 mg PO QID PRN #30 tablet PRN Reason: Nausea Referrals: BELA SAMAYOA MD [Staff Physician] - 3-5 Days DAYA HILL MD [Staff Physician] - 3-5 Days
[2019-04-06 11:26] LABS: Hematocrit 41.2 % (30.3-42.9); Hemoglobin 13.4 gm/dl (10.1-14.3); Mean Corpuscular HGB Conc 32 % (30-34); Mean Corpuscular Volume 97 fl (79-97); Platelet Count 213 K/mm3 (140-440); Red Blood Count 4.26 M/mm3 (3.65-5.03); Red Cell Distribution Width 15.4 % (13.2-15.2)
[2019-04-06 11:35] LABS: Calcium 10.5 mg/dL (8.4-10.2)
[2019-04-06] MEDS ORDERED: NORMODYNE IV ONE (12:46)
--- NOTE | 2019-04-06 13:24 | XRay Report ---
PROCEDURE: XR CHEST 1V AP TECHNIQUE: Chest radiograph single view. HISTORY: n/v htn weak COMPARISONS: Chest x-ray March 11, 2019 . FINDINGS: Trachea midline. Heart size top normal. Right internal jugular line stable. No pneumothorax. No sizable effusion. No acute airspace disease. Basilar opacities noted prior study are improved. IMPRESSION: No acute cardiopulmonary abnormality. This document is electronically signed by Angelo Darden MD., April 06 2019 02:22:22 PM ET
[2019-04-06] MEDS ORDERED: APRESOLINE PO STA (13:26)
[2019-04-06] MEDS ORDERED: TOPROL XL PO STA (13:26)
--- NOTE | 2019-04-06 14:02 | Cat Scan Report ---
PROCEDURE: CT ABDOMEN PELVIS WO CON TECHNIQUE: Axial images obtained abdomen without intravenous contrast. Sagittal coronal reformatted images obtained. HISTORY: abd pain n/v COMPARISONS: Abdominal pelvic CT February 15, 2019 FINDINGS: Basilar aeration improved. Minimal residual atelectasis. No effusion. Stable cardiomegaly Liver, spleen and pancreas unremarkable noncontrast appearance Cholelithiasis reidentified; stable Adrenal glands unremarkable. Kidneys demonstrate no calculus. No hydronephrosis. Normal contour. Ureters are nondilated. Bladder a ppears unremarkable. Retroverted uterus. No adnexal mass. Aorta normal caliber. No significant atherosclerotic calcification. No retroperitoneal adenopathy Dense stool rectosigmoid suggesting constipation. No bowel obstruction. No free air. No free fluid. N o diverticulosis. No diverticulitis. Normal appendix. Omentum and mesentery unremarkable. No acute bony abnormality IMPRESSION: No acute abdominal pelvic abnormality No free air. No free fluid No bowel obstruction Colonic stool suggesting constipation No acute inflammatory change. Normal appendix No renal or ureteral calculus. No hydronephrosis Stable cholelithiasis. This document is electronically signed by Angelo Darden MD., April 06 2019 03:00:17 PM ET
--- NOTE | 2019-04-06 14:14 | Cat Scan Report ---
PROCEDURE: CT HEAD/BRAIN WO CON TECHNIQUE: A noncontrast CT of the head was performed. HISTORY: fell hit head COMPARISON: 11/04/2018 FINDINGS: There is no acute intracranial hemorrhage. There is no brain edema, mass effect or midline shift. Ventricular size is appropriate for brain volume. There is no abnormal extra-axial fluid collections. There is no skull fracture seen. The visualized paranasal sinuses are clear. IMPRESSION: There is no acute intracranial abnormality seen. This document is electronically signed by Cecille Madrigal MD., April 06 2019 03:12:10 PM ET
[2019-04-06 15:06] VITALS: BP 133/73
== END 2019-04-06 15:34 | disposition home or self-care (01) ==
LOC: ED 09:55
DX: E10.43 Type 1 diabetes mellitus with diabetic autonomic (poly)neuropathy (principal); K31.84 Gastroparesis; I12.0 Hypertensive chronic kidney disease with stage 5 chronic kidney disease or end stage renal disease; N18.6 End stage renal disease; E10.22 Type 1 diabetes mellitus with diabetic chronic kidney disease; Z99.2 Dependence on renal dialysis; E88.09 Other disorders of plasma-protein metabolism, not elsewhere classified; Z91.013 Allergy to seafood; Z79.4 Long term (current) use of insulin; Z88.5 Allergy status to narcotic agent
CPT/HCPCS: 36415; 70450; 71045; 74176; 80048; 83735; 84702; 85027; 93005; 93010; 96372; 96374; 96375; 99285; G0480; J0360; J0500; J1630; 80053; 80320; 85025; 96376; J1170; J2405; J2765; Q0169

== ENCOUNTER 2020-05-20 11:00 | Outpatient (CLI) | payer MEDICAID | END 2020-05-21 23:59 | disposition home or self-care (01) | LOC: LAB 11:00 → EDSTATUS 05-24 10:00 | PROVIDERS: ATTEND Radiology Diagnostic Radiology | DX: U07.1 COVID-19 (principal) | CPT/HCPCS: U0003-CS ==

== ENCOUNTER 2020-06-23 13:09 | Emergency (ER) | payer MEDICAID ==
[2020-06-23] MEDS ORDERED: ONDANSETRON 4 MG/2 ML INJ IV ONE (13:31)
[2020-06-23] MEDS ORDERED: SODIUM CHLORIDE 0.9% 1000 ML 1,000 ML IV ONE (13:31)
[2020-06-23] MEDS ORDERED: FAMOTIDINE 20 MG/2 ML INJ IV ONE (13:31)
[2020-06-23 15:07] LABS: Basophils # (Auto) 0.1 K/mm3 (0.0-0.1); Basophils % (Auto) 0.7 % (0.0-1.8); Eosinophils # (Auto) 0.1 K/mm3 (0.0-0.4); Eosinophils % (Auto) 0.7 % (0.0-4.3); Hematocrit 31.1 % (30.3-42.9); Hemoglobin 10.5 gm/dl (10.1-14.3); Lymphocytes # (Auto) 0.9 K/mm3 (1.2-5.4); Lymphocytes % (Auto) 11.8 % (13.4-35.0); Mean Corpuscular HGB Conc 34 % (30-34); Mean Corpuscular Volume 96 fl (79-97); Monocytes # (Auto) 0.6 K/mm3 (0.0-0.8); Monocytes % (Auto) 8.1 % (0.0-7.3); Platelet Count 264 K/mm3 (140-440); Red Blood Count 3.25 M/mm3 (3.65-5.03); Red Cell Distribution Width 15.1 % (13.2-15.2)
--- NOTE | 2020-06-23 15:11 | Event Note ---
ED Screening Note Date of service: 06/23/20 ED Screening Note: 29-year-old female presents with abdominal pain with nausea vomiting, actively in triage. This initial assessment/diagnostic orders/clinical plan/treatment(s) is/are subject to change based on patients health status, clinical progression and re- assessment by fellow clinical providers in the ED. Further treatment and workup at subsequent clinical providers discretion. Patient/guardian urged not to elope from the ED as their condition may be serious if not clinically assessed and managed. Initial orders include: Labs, urinalysis and meds ordered.
[2020-06-23 15:12] LABS: Albumin 4.4 g/dL (3.9-5)
[2020-06-23] MEDS ORDERED: MORPHINE 4 MG/1 ML INJ IV ONE (16:34)
--- NOTE | 2020-06-23 16:39 | Emergency Department Report ---
ED N/V/D HPI - General Chief complaint: Abdominal Pain Stated complaint: NAUSEA PUI?: No Time Seen by Provider: 06/23/20 16:29 Source: patient, EMS Mode of arrival: Stretcher Limitations: No Limitations - History of Present Illness Initial comments: Chief complaint: "I have gastroparesis. Plus I need a new bed." HPI: This is a 29-year-old female with history of end-stage renal disease on hemodialysis, gastroparesis, diabetes mellitus, hypertension, who presents with nausea vomiting overall body aches. She denies fever chills. She feels that her back pain is due to needing a new bed. She has mild dull abdominal pain. She is had nausea vomiting. She received full dialysis treatment today. No sick contacts at home. She normally takes Reglan and Phenergan at home. She has run out of these medications. MD complaint: nausea, vomiting, abdominal pain -: Gradual, days(s) (1) Description of Vomiting: food contents Associated Abdominal Pain: Yes Location: diffuse Severity: mild Pain Scale: 5 Quality: dull Consistency: now resolved Worsens with: eating Context: other (History of diabetic gastroparesis) Associated Symptoms: other (Back pain body aches) - Related Data Home Medications Medication Instructions Recorded Confirmed Last Taken hydrALAZINE [Apresoline TAB] 50 mg PO TID 02/13/18 05/06/20 04/05/19 Metoprolol Xl [Metoprolol 50 mg PO QDAY 11/04/18 05/06/20 04/05/19 SUCCINATE ER TAB] Insulin NPH Human Isophane 20 unit SQ ACHS 04/06/19 05/06/20 Unknown [HumuLIN N] Insulin Regular, Human [HumuLIN R] 20 unit SQ ACHS 04/06/19 05/06/20 Unknown Previous Rx's Medication Instructions Recorded Last Taken Type Dicyclomine [Bentyl] 10 mg PO QID PRN #20 capsule 04/06/19 Unknown Rx Famotidine [Pepcid] 20 mg PO BID #30 tablet 04/06/19 Unknown Rx Metoclopramide [Reglan] 10 mg PO QID PRN #30 tablet 04/06/19 Unknown Rx Promethazine [Phenergan SUPPOS] 50 mg NJ Q6H PRN #20 supp.rect 04/06/19 Unknown Rx Dicyclomine [Bentyl] 20 mg PO QID #10 tablet 07/06/19 Unknown Rx Ondansetron [Zofran Odt] 4 mg PO Q8HR #10 tab.rapdis 07/06/19 Unknown Rx Dicyclomine [Bentyl] 20 mg PO QID #30 tablet 06/14/20 Unknown Rx Ondansetron [Zofran Odt] 4 mg PO Q8HR PRN #14 tab.rapdis 06/14/20 Unknown Rx Metoclopramide [Reglan] 10 mg PO ACHS #30 tablet 06/23/20 Unknown Rx Promethazine [Phenergan] 25 mg PO Q6HR PRN #10 tab 06/23/20 Unknown Rx Allergies Allergy/AdvReac Type Severity Reaction Status Date / Time shellfish derived Allergy Severe Angioedema Verified 12/11/18 09:58 hydrocodone Allergy Unknown Verified 04/06/19 10:25 ED Review of Systems ROS: Stated complaint: NAUSEA Other details as noted in HPI Comment: All other systems reviewed and negative Constitutional: denies: chills, fever, malaise Respiratory: denies: shortness of breath Cardiovascular: denies: chest pain Gastrointestinal: abdominal pain, nausea, vomiting. denies: diarrhea ED Past Medical Hx - Past Medical History Previous Medical History?: Yes Hx Hypertension: Yes Hx Congestive Heart Failure: No Hx Diabetes: Yes (type 1 (insulin)) Hx Deep Vein Thrombosis: No Hx Renal Disease: Yes (m/w/f) Hx Seizures: Yes Hx Asthma: No Hx COPD: No Hx HIV: No Additional medical history: gastroparesis - Surgical History Past Surgical History?: Yes Hx Pacemaker: No Hx Internal Defibrillator: No Additional Surgical History: Cataract surgery-bilat. 2012. vas cath right chest wall. left upper arm fistula - Social History Smoking Status: Never Smoker - Medications Home Medications: Home Medications Medication Instructions Recorded Confirmed Last Taken Type hydrALAZINE [Apresoline TAB] 50 mg PO TID 02/13/18 05/06/20 04/05/19 History Metoprolol Xl [Metoprolol 50 mg PO QDAY 11/04/18 05/06/20 04/05/19 History SUCCINATE ER TAB] Dicyclomine [Bentyl] 10 mg PO QID PRN #20 capsule 04/06/19 05/06/20 Unknown Rx Famotidine [Pepcid] 20 mg PO BID #30 tablet 04/06/19 05/06/20 Unknown Rx Insulin NPH Human Isophane 20 unit SQ ACHS 04/06/19 05/06/20 Unknown History [HumuLIN N] Insulin Regular, Human [HumuLIN R] 20 unit SQ ACHS 04/06/19 05/06/20 Unknown History Metoclopramide [Reglan] 10 mg PO QID PRN #30 tablet 04/06/19 05/06/20 Unknown Rx Promethazine [Phenergan SUPPOS] 50 mg NJ Q6H PRN #20 supp.rect 04/06/19 05/06/20 Unknown Rx Dicyclomine [Bentyl] 20 mg PO QID #10 tablet 07/06/19 05/06/20 Unknown Rx Ondansetron [Zofran Odt] 4 mg PO Q8HR #10 tab.rapdis 07/06/19 05/06/20 Unknown Rx Dicyclomine [Bentyl] 20 mg PO QID #30 tablet 06/14/20 Unknown Rx Ondansetron [Zofran Odt] 4 mg PO Q8HR PRN #14 tab.rapdis 06/14/20 Unknown Rx Metoclopramide [Reglan] 10 mg PO ACHS #30 tablet 06/23/20 Unknown Rx Promethazine [Phenergan] 25 mg PO Q6HR PRN #10 tab 06/23/20 Unknown Rx ED Physical Exam - General Limitations: No Limitations General appearance: alert, in no apparent distress - Head Head exam: Present: atraumatic, normocephalic - Eye Eye exam: Present: normal appearance - ENT ENT exam: Present: mucous membranes moist - Neck Neck exam: Present: normal inspection, full ROM - Respiratory Respiratory exam: Present: normal lung sounds bilaterally. Absent: respiratory distress, wheezes, rales - Cardiovascular Cardiovascular Exam: Present: regular rate, normal rhythm, normal heart sounds. Absent: systolic murmur, diastolic murmur, rubs, gallop - GI/Abdominal GI/Abdominal exam: Present: soft, normal bowel sounds. Absent: distended, tenderness, guarding, rebound - Extremities Exam Extremities exam: Present: normal inspection - Neurological Exam Neurological exam: Present: alert, oriented X3 - Psychiatric Psychiatric exam: Present: normal affect, normal mood - Skin Skin exam: Present: warm, dry, intact, normal color. Absent: rash ED Course Vital Signs 06/23/20 06/23/20 13:25 16:14 Temperature 99.0 F Pulse Rate 115 H Respiratory 18 18 Rate Blood Pressure 157/89 O2 Sat by Pulse 100 99 Oximetry ED Medical Decision Making - Lab Data Result diagrams: 06/23/20 14:20 06/23/20 14:20 Laboratory Results - last 24 hr 06/23/20 06/23/20 06/23/20 14:20 14:20 14:20 WBC 7.5 RBC 3.25 L Hgb 10.5 Hct 31.1 MCV 96 MCH 32 MCHC 34 RDW 15.1 Plt Count 264 Lymph % (Auto) 11.8 L Rhea % (Auto) 8.1 H Eos % (Auto) 0.7 Baso % (Auto) 0.7 Lymph # 0.9 L Rhea # 0.6 Eos # 0.1 Baso # 0.1 Seg Neutrophils % 78.7 H Seg Neutrophils # 5.9 Sodium 139 Potassium 4.0 Chloride 94.2 L Carbon Dioxide 29 Anion Gap 20 BUN 9 Creatinine 3.4 H Estimated GFR 19 BUN/Creatinine Ratio 3 Glucose 131 H Calcium 9.0 Total Bilirubin 0.20 AST 12 ALT 10 Alkaline Phosphatase 72 Total Protein 7.1 Albumin 4.4 Albumin/Globulin Ratio 1.6 Lipase 20 HCG, Qual Negative - Medical Decision Making 1. Body aches: Patient states that she feels she needs an new bed. She denies fever. Denies chills. Denies cough. No indication otherwise of viral syndrome. 2. Nausea vomiting nondescript abdominal pain with history of gastroparesis. No fever tenderness or leukocytosis to indicate peritonitis or acute inflammatory process involving the abdomen pelvis. I have prescribed both prom ethazine and Reglan. She received IV Zofran and IV famotidine which improved her symptoms. Critical care attestation.: If time is entered above; I have spent that time in minutes in the direct care of this critically ill patient, excluding procedure time. ED Disposition Clinical Impression: Gastroparesis Disposition: DC-01 TO HOME OR SELFCARE Is pt being admited?: No Does the pt Need Aspirin: No Condition: Stable Instructions: Abdominal Pain (ED) Prescriptions: Promethazine [Phenergan] 25 mg PO Q6HR PRN #10 tab PRN Reason: Nausea Metoclopramide [Reglan] 10 mg PO ACHS #30 tablet Referrals: DOMINIQUE PALMER MD [Staff Physician] - 3-5 Days
[2020-06-23 17:30] VITALS: BP 181/109
== END 2020-06-23 17:17 | disposition home or self-care (01) ==
LOC: ED 13:09
DX: K31.84 Gastroparesis (principal); I10 Essential (primary) hypertension; E10.8 Type 1 diabetes mellitus with unspecified complications; R56.9 Unspecified convulsions; Z87.448 Personal history of other diseases of urinary system; Z98.890 Other specified postprocedural states; Z79.4 Long term (current) use of insulin; Z79.899 Other long term (current) drug therapy; Z88.8 Allergy status to other drugs, medicaments and biological substances; Z91.013 Allergy to seafood
CPT/HCPCS: 36415; 80053; 83690; 84703; 85025; 96361; 96374; 96375; 99283; J2270; J2405; J7030

== ENCOUNTER 2020-08-05 14:49 | Emergency (ER) | payer MEDICAID ==
[2020-08-05] MEDS ORDERED: ONDANSETRON 4 MG/2 ML INJ ONE (17:27)
[2020-08-05] MEDS ORDERED: ONDANSETRON 4 MG/2 ML INJ IV ONE ×2 (17:28→19:49)
[2020-08-05 17:42] LABS: Basophils # (Auto) 0.1 K/mm3 (0.0-0.1); Eosinophils # (Auto) 0.1 K/mm3 (0.0-0.4); Hematocrit 40.1 % (30.3-42.9); Hemoglobin 12.8 gm/dl (10.1-14.3); Lymphocytes # (Auto) 0.8 K/mm3 (1.2-5.4); Lymphocytes % (Auto) 14.2 % (13.4-35.0); Mean Corpuscular HGB Conc 32 % (30-34); Mean Corpuscular Volume 97 fl (79-97); Monocytes # (Auto) 0.4 K/mm3 (0.0-0.8); Monocytes % (Auto) 6.6 % (0.0-7.3); Red Blood Count 4.15 M/mm3 (3.65-5.03)
[2020-08-05 17:43] LABS: Platelet Count 173 K/mm3 (140-440)
[2020-08-05] MEDS ORDERED: HALOPERIDOL LACTATE 5 MG/1 ML INJ IV ONE ×2 (17:46→18:30)
[2020-08-05] MEDS ORDERED: SODIUM CHLORIDE 0.9% 1000 ML 1,000 ML IV ONE (17:47)
[2020-08-05 17:48] LABS: Albumin 4.2 g/dL (3.9-5); Calcium 10.6 mg/dL (8.4-10.2)
--- NOTE | 2020-08-05 17:50 | Emergency Department Report ---
ED General Adult HPI - General Chief complaint: Nausea/Vomiting/Diarrhea Stated complaint: NAUSEA Time Seen by Provider: 08/05/20 17:02 Source: patient, EMS Mode of arrival: Wheelchair Limitations: No Limitations - History of Present Illness Initial comments: The patient presents to the ED for nausea, vomiting, and abdominal pain. Patient states she has a history of diabetes and as a result has gastroparesis. Patient states her symptoms started this morning. Patient states she took Reglan at home without help. Patient denies chest pain, shortness breath, but does endorse some abdominal pain. -: Sudden Location: abdomen Severity scale (0 -10): 10 Quality: aching Consistency: constant Improves with: none Worsens with: none Associated Symptoms: denies other symptoms Treatments Prior to Arrival: none - Related Data Home Medications Medication Instructions Recorded Confirmed Last Taken hydrALAZINE [Apresoline TAB] 50 mg PO TID 02/13/18 08/05/20 08/04/20 Metoprolol Xl [Metoprolol 50 mg PO QDAY 11/04/18 08/05/20 08/04/20 SUCCINATE ER TAB] Insulin NPH Human Isophane 20 unit SQ ACHS 04/06/19 08/05/20 Unknown [HumuLIN N] Insulin Regular, Human [HumuLIN R] 20 unit SQ [facility] 04/06/19 08/05/20 08/05/20 Previous Rx's Medication Instructions Recorded Last Taken Type Ondansetron [Zofran Odt] 4 mg PO Q8HR #10 tab.rapdis 07/06/19 08/05/20 Rx Metoclopramide [Reglan] 10 mg PO ACHS #30 tablet 06/23/20 08/05/20 Rx Dicyclomine [Bentyl] 10 mg PO QID PRN #20 capsule 08/05/20 Unknown Rx Metoclopramide [Reglan] 10 mg PO TID #30 tab 08/05/20 Unknown Rx Allergies Allergy/AdvReac Type Severity Reaction Status Date / Time shellfish derived Allergy Severe Angioedema Verified 12/11/18 09:58 hydrocodone Allergy Unknown Verified 04/06/19 10:25 ED Review of Systems ROS: Stated complaint: NAUSEA Other details as noted in HPI Comment: All other systems reviewed and negative Constitutional: denies: chills, fever Eyes: denies: eye pain, eye discharge, vision change ENT: denies: ear pain, throat pain Respiratory: denies: cough, shortness of breath, wheezing Cardiovascular: denies: chest pain, palpitations Endocrine: no symptoms reported Gastrointestinal: nausea, vomiting. denies: abdominal pain, diarrhea Genitourinary: denies: urgency, dysuria, discharge Musculoskeletal: denies: back pain, joint swelling, arthralgia Skin: denies: rash, lesions Neurological: denies: headache, weakness, paresthesias Psychiatric: denies: anxiety, depression Hematological/Lymphatic: denies: easy bleeding, easy bruising ED Past Medical Hx - Past Medical History Previous Medical History?: Yes Hx Hypertension: Yes Hx Congestive Heart Failure: No Hx Diabetes: Yes (type 1 (insulin)) Hx Deep Vein Thrombosis: No Hx Renal Disease: Yes (m/w/f) Hx Seizures: Yes Hx Asthma: No Hx COPD: No Hx HIV: No Additional medical history: gastroparesis - Surgical History Past Surgical History?: Yes Hx Pacemaker: No Hx Internal Defibrillator: No Additional Surgical History: Cataract surgery-bilat. 2012. vas cath right chest wall. left upper arm fistula - Social History Smoking Status: Never Smoker Substance Use Type: None - Medications Home Medications: Home Medications Medication Instructions Recorded Confirmed Last Taken Type hydrALAZINE [Apresoline TAB] 50 mg PO TID 02/13/18 08/05/20 08/04/20 History Metoprolol Xl [Metoprolol 50 mg PO QDAY 11/04/18 08/05/20 08/04/20 History SUCCINATE ER TAB] Insulin NPH Human Isophane 20 unit SQ [facility] 04/06/19 08/05/20 Unknown History [HumuLIN N] Insulin Regular, Human [HumuLIN R] 20 unit SQ [facility] 04/06/19 08/05/20 08/05/20 History Ondansetron [Zofran Odt] 4 mg PO Q8HR #10 tab.rapdis 07/06/19 08/05/20 08/05/20 Rx Metoclopramide [Reglan] 10 mg PO ACHS #30 tablet 06/23/20 08/05/20 08/05/20 Rx Dicyclomine [Bentyl] 10 mg PO QID PRN #20 capsule 08/05/20 Unknown Rx Metoclopramide [Reglan] 10 mg PO TID #30 tab 08/05/20 Unknown Rx ED Physical Exam - General Limitations: No Limitations General appearance: alert, in no apparent distress - Head Head exam: Present: atraumatic, normocephalic - Eye Eye exam: Present: normal appearance, PERRL, EOMI - ENT ENT exam: Present: mucous membranes dry - Neck Neck exam: Present: normal inspection - Respiratory Respiratory exam: Present: normal lung sounds bilaterally. Absent: respiratory distress - Cardiovascular Cardiovascular Exam: Present: normal rhythm, tachycardia. Absent: systolic murmur, diastolic murmur, rubs, gallop - GI/Abdominal GI/Abdominal exam: Present: soft, normal bowel sounds. Absent: distended, tenderness - Extremities Exam Extremities exam: Present: normal inspection - Back Exam Back exam: Present: normal inspection - Neurological Exam Neurological exam: Present: alert, oriented X3, CN II-XII intact. Absent: motor sensory deficit - Psychiatric Psychiatric exam: Present: normal affect, normal mood - Skin Skin exam: Present: warm, dry, intact, normal color. Absent: rash ED Course Vital Signs 08/05/20 08/05/20 08/05/20 15:17 17:00 17:19 Temperature 98.6 F Pulse Rate 111 H 110 H Respiratory 20 18 18 Rate Blood Pressure 179/157 Blood Pressure 210/119 [Right] O2 Sat by Pulse 100 100 100 Oximetry 08/05/20 19:46 Temperature Pulse Rate 110 H Respiratory 18 Rate Blood Pressure Blood Pressure 189/109 [Right] O2 Sat by Pulse 100 Oximetry ED Medical Decision Making - Lab Data Result diagrams: 08/05/20 15:22 08/05/20 15:22 Lab Results 08/05/20 08/05/20 08/05/20 Range/Units 15:22 15:22 15:22 WBC 5.4 (4.5-11.0) K/mm3 RBC 4.15 (3.65-5.03) M/mm3 Hgb 12.8 (10.1-14.3) gm/dl Hct 40.1 (30.3-42.9) % MCV 97 (79-97) fl MCH 31 (28-32) pg MCHC 32 (30-34) % RDW 16.0 H (13.2-15.2) % Plt Count 173 (140-440) K/mm3 Lymph % (Auto) 14.2 (13.4-35.0) % Barton % (Auto) 6.6 (0.0-7.3) % Eos % (Auto) 1.0 (0.0-4.3) % Baso % (Auto) 1.0 (0.0-1.8) % Lymph # (Auto) 0.8 L (1.2-5.4) K/mm3 Barton # (Auto) 0.4 (0.0-0.8) K/mm3 Eos # (Auto) 0.1 (0.0-0.4) K/mm3 Baso # (Auto) 0.1 (0.0-0.1) K/mm3 Seg Neutrophils % 77.2 H (40.0-70.0) % Seg Neutrophils # 4.1 (1.8-7.7) K/mm3 Sodium 143 (137-145) mmol/L Potassium 4.2 (3.6-5.0) mmol/L Chloride 100.7 (98-107) mmol/L Carbon Dioxide 23 (22-30) mmol/L Anion Gap 24 mmol/L BUN 20 H (7-17) mg/dL Creatinine 7.5 H (0.6-1.2) mg/dL Estimated GFR 8 ml/min BUN/Creatinine Ratio 3 % Glucose 236 H (65-100) mg/dL POC Glucose (70-105) Calcium 10.6 H (8.4-10.2) mg/dL Total Bilirubin 0.20 (0.1-1.2) mg/dL AST 13 (5-40) units/L ALT 12 (7-56) units/L Alkaline Phosphatase 87 (35-129) units/L Total Protein 6.9 (6.3-8.2) g/dL Albumin 4.2 (3.9-5) g/dL Albumin/Globulin Ratio 1.6 % HCG, Qual Negative (Negative) 08/05/20 Range/Units 15:37 WBC (4.5-11.0) K/mm3 RBC (3.65-5.03) M/mm3 Hgb (10.1-14.3) gm/dl Hct (30.3-42.9) % MCV (79-97) fl MCH (28-32) pg MCHC (30-34) % RDW (13.2-15.2) % Plt Count (140-440) K/mm3 Lymph % (Auto) (13.4-35.0) % Barton % (Auto) (0.0-7.3) % Eos % (Auto) (0.0-4.3) % Baso % (Auto) (0.0-1.8) % Lymph # (Auto) (1.2-5.4) K/mm3 Barton # (Auto) (0.0-0.8) K/mm3 Eos # (Auto) (0.0-0.4) K/mm3 Baso # (Auto) (0.0-0.1) K/mm3 Seg Neutrophils % (40.0-70.0) % Seg Neutrophils # (1.8-7.7) K/mm3 Sodium (137-145) mmol/L Potassium (3.6-5.0) mmol/L Chloride (98-107) mmol/L Carbon Dioxide (22-30) mmol/L Anion Gap mmol/L BUN (7-17) mg/dL Creatinine (0.6-1.2) mg/dL Estimated GFR ml/min BUN/Creatinine Ratio % Glucose (65-100) mg/dL POC Glucose 211 H (70-105) Calcium (8.4-10.2) mg/dL Total Bilirubin (0.1-1.2) mg/dL AST (5-40) units/L ALT (7-56) units/L Alkaline Phosphatase (35-129) units/L Total Protein (6.3-8.2) g/dL Albumin (3.9-5) g/dL Albumin/Globulin Ratio % HCG, Qual (Negative) - Radiology Data Radiology results: report reviewed - Medical Decision Making patient sx improved with [facility] Critical care attestation.: If time is entered above; I have spent that time in minutes in the direct care of this critically ill patient, excluding procedure time. ED Disposition Clinical Impression: Gastroparesis Disposition: DC-01 TO HOME OR SELFCARE Is pt being admited?: No Does the pt Need Aspirin: No Condition: Stable Instructions: Acute Nausea and Vomiting (ED) Additional Instructions: return if worse Prescriptions: Metoclopramide [Reglan] 10 mg PO TID #30 tab Referrals: PRIMARY CAREMD [Primary Care Provider] - 3-5 Days DOMINIQUE PALMER MD [Staff Physician] - 3-5 Days Time of Disposition: 20:45
[2020-08-05 19:48] VITALS: BP 189/109
[2020-08-05] MEDS ORDERED: NalbUPHINE 10 MG/1 ML INJ IV ONE (19:48)
[2020-08-05] MEDS ORDERED: diphenhydrAMINE 50 MG/ML VIAL IV ONE ×2 (19:49→19:52)
[2020-08-05] MEDS ORDERED: fentaNYL 100 MCG/2 ML INJ IV ONE (19:52)
== END 2020-08-05 21:50 | disposition home or self-care (01) ==
LOC: ED 14:49
DX: E10.43 Type 1 diabetes mellitus with diabetic autonomic (poly)neuropathy (principal); K31.84 Gastroparesis; I10 Essential (primary) hypertension; R56.9 Unspecified convulsions; Z79.899 Other long term (current) drug therapy; Z79.4 Long term (current) use of insulin; Z91.013 Allergy to seafood; Z88.8 Allergy status to other drugs, medicaments and biological substances
CPT/HCPCS: 36415; 80053; 82962; 84703; 85025; 93005; 96361; 96374; 96375; 96376; 99284; J1200; J1630; J2405; J3010; J7030

== ENCOUNTER 2020-09-01 01:01 | Emergency (ER) | payer MEDICAID ==
[2020-09-01] MEDS ORDERED: ONDANSETRON 4 MG/2 ML INJ IV ONE ×2 (02:41→07:57)
[2020-09-01 03:12] LABS: Basophils % (Auto) 0.6 % (0.0-1.8); Hematocrit 41.8 % (30.3-42.9); Hemoglobin 13.4 gm/dl (10.1-14.3); Lymphocytes # (Auto) 0.6 K/mm3 (1.2-5.4); Lymphocytes % (Auto) 9.3 % (13.4-35.0); Mean Corpuscular HGB Conc 32 % (30-34); Mean Corpuscular Volume 94 fl (79-97); Monocytes # (Auto) 0.1 K/mm3 (0.0-0.8); Monocytes % (Auto) 1.9 % (0.0-7.3); Platelet Count 188 K/mm3 (140-440); Red Blood Count 4.43 M/mm3 (3.65-5.03); Red Cell Distribution Width 15.2 % (13.2-15.2)
[2020-09-01 03:28] LABS: Albumin 4.4 g/dL (3.9-5)
[2020-09-01] MEDS: SODIUM CHLORIDE 0.9% 1000 ML 1,000 ML IV ONE ×2 (03:32→03:34)
[2020-09-01] MEDS ORDERED: SODIUM CHLORIDE 0.9% 500 ML 500 ML IV ONE (03:35)
[2020-09-01] MEDS ORDERED: MORPHINE 4 MG/1 ML INJ IV ONE (04:10)
[2020-09-01] MEDS ORDERED: DICYCLOMINE 20 MG TAB PO ONE (04:10)
[2020-09-01] MEDS ORDERED: METOCLOPRAMIDE 10 MG/2 ML INJ IV ONE (04:37)
--- NOTE | 2020-09-01 04:56 | XRay Report ---
ABDOMEN 2 VIEW(S) INDICATION / CLINICAL INFORMATION: Abdominal pain with nausea for one day. COMPARISON: 06/14/20. FINDINGS: TUBES / LINES: None. BOWEL GAS PATTERN: There is no evidence of bowel obstruction or mass effect. FREE AIR / EXTRALUMINAL GAS: None seen. ADDITIONAL FINDINGS: No abnormal calcification is seen. IMPRESSION: No acute abnormality. Signer Name: Deven Mata MD Signed: 09/01/2020 4:52 AM Workstation Name: [id number]
--- NOTE | 2020-09-01 05:21 | Emergency Department Report ---
HPI - General Chief Complaint: Abdominal Pain Time Seen by Provider: 09/01/20 02:39 - HPI HPI: This is a 29-year-old female presents to the emergency department via EMS from home with a complaint of a 1 day history of right-sided abdominal pain, nausea, vomiting. She has a past medical history that includes insulin-dependent diabetes, gastroparesis, hypertension, seizures, gallstones, and she has end- stage renal disease on hemodialysis on Sunday/Sunday/Sunday. She has been trying to take Reglan at home without any relief. She denies any fever, dysuria, vaginal bleeding or discharge. No recent travel or sick contacts at home. She follows with Dr. Hill for gastroenterology and Dr. Patel for nephrology. The patient has been to this facility previously with similar symptoms. ED Past Medical Hx - Past Medical History Hx Hypertension: Yes Hx Congestive Heart Failure: No Hx Diabetes: Yes (type 1 (insulin)) Hx Deep Vein Thrombosis: No Hx Renal Disease: Yes (m/w/f) Hx Seizures: Yes Hx Asthma: No Hx COPD: No Hx HIV: No Additional medical history: gastroparesis - Surgical History Hx Pacemaker: No Hx Internal Defibrillator: No Additional Surgical History: Cataract surgery-bilat. 2012. vas cath right chest wall. left upper arm fistula - Social History Smoking Status: Never Smoker Substance Use Type: None - Medications Home Medications: Home Medications Medication Instructions Recorded Confirmed Last Taken Type hydrALAZINE [Apresoline TAB] 50 mg PO TID 02/13/18 08/05/20 08/04/20 History Metoprolol Xl [Metoprolol 50 mg PO QDAY 11/04/18 08/05/20 08/04/20 History SUCCINATE ER TAB] Insulin NPH Human Isophane 20 unit SQ ACHS 04/06/19 08/05/20 Unknown History [HumuLIN N] Insulin Regular, Human [HumuLIN R] 20 unit SQ [facility] 04/06/19 08/05/20 08/05/20 History Ondansetron [Zofran Odt] 4 mg PO Q8HR #10 tab.rapdis 07/06/19 08/05/20 08/05/20 Rx Metoclopramide [Reglan] 10 mg PO ACHS #30 tablet 06/23/20 08/05/20 08/05/20 Rx Dicyclomine [Bentyl] 10 mg PO QID PRN #20 capsule 08/05/20 Unknown Rx Metoclopramide [Reglan TAB] 10 mg PO TID PRN #20 tab 09/01/20 Unknown Rx ED Review of Systems ROS: Stated complaint: VOMITING Other details as noted in HPI Comment: All other systems reviewed and negative Constitutional: denies: chills, fever Eyes: denies: eye pain, vision change ENT: denies: ear pain, throat pain Respiratory: denies: cough, shortness of breath Cardiovascular: denies: chest pain, palpitations Gastrointestinal: abdominal pain, nausea, vomiting Genitourinary: denies: dysuria, discharge Musculoskeletal: denies: back pain, arthralgia Skin: denies: rash, lesions Neurological: denies: headache, weakness Physical Exam - Physical Exam Vital Signs: Vital Signs 09/01/20 09/01/20 01:14 04:47 Temperature 98.7 F Pulse Rate 123 H 121 H Respiratory 18 Rate Blood Pressure 198/122 177/112 O2 Sat by Pulse 99 Oximetry Physical Exam: GENERAL: The patient is well-developed well-nourished. HENT: Normocephalic. Atraumatic. Patient has moist mucous membranes. EYES: Extraocular motions are intact. NECK: Supple. Trachea is midline. CHEST/LUNGS: Clear to auscultation. There is no respiratory distress noted. HEART/CARDIOVASCULAR: Regular. There is mild tachycardia. ABDOMEN: Abdomen is soft. Right upper quadrant abdominal tenderness. No guarding. Patient has normal bowel sounds. There is no abdominal distention. SKIN: Skin is warm and dry. NEURO: The patient is awake, alert, and oriented. The patient is cooperative. The patient has no focal neurologic deficits. Normal speech. MUSCULOSKELETAL: There is no tenderness or deformity. ED Course Vital Signs 09/01/20 09/01/20 01:14 04:47 Temperature 98.7 F Pulse Rate 123 H 121 H Respiratory 18 Rate Blood Pressure 198/122 177/112 O2 Sat by Pulse 99 Oximetry - Reevaluation(s) Reevaluation #1: 09/01/20 06:00 Lab Results 09/01/20 09/01/20 09/01/20 Range/Units 02:15 02:15 02:15 WBC 6.9 (4.5-11.0) K/mm3 RBC 4.43 (3.65-5.03) M/mm3 Hgb 13.4 (10.1-14.3) gm/dl Hct 41.8 (30.3-42.9) % MCV 94 (79-97) fl MCH 30 (28-32) pg MCHC 32 (30-34) % RDW 15.2 (13.2-15.2) % Plt Count 188 (140-440) K/mm3 Lymph % (Auto) 9.3 L (13.4-35.0) % [place] % (Auto) 1.9 (0.0-7.3) % Eos % (Auto) 0.0 (0.0-4.3) % Baso % (Auto) 0.6 (0.0-1.8) % Lymph # (Auto) 0.6 L (1.2-5.4) K/mm3 [place] # (Auto) 0.1 (0.0-0.8) K/mm3 Eos # (Auto) 0.0 (0.0-0.4) K/mm3 Baso # (Auto) 0.0 (0.0-0.1) K/mm3 Seg Neutrophils % 88.2 H (40.0-70.0) % Seg Neutrophils # 6.1 (1.8-7.7) K/mm3 Sodium 141 (137-145) mmol/L Potassium 5.0 (3.6-5.0) mmol/L Chloride 94.8 L (98-107) mmol/L Carbon Dioxide 25 (22-30) mmol/L Anion Gap 26 mmol/L BUN 49 H (7-17) mg/dL Creatinine 8.8 H (0.6-1.2) mg/dL Estimated GFR 6 ml/min BUN/Creatinine Ratio 6 % Glucose 289 H (65-100) mg/dL Calcium 11.0 H (8.4-10.2) mg/dL Total Bilirubin 0.20 (0.1-1.2) mg/dL AST 17 (5-40) units/L ALT 14 (7-56) units/L Alkaline Phosphatase 115 (35-129) units/L Total Protein 7.9 (6.3-8.2) g/dL Albumin 4.4 (3.9-5) g/dL Albumin/Globulin Ratio 1.3 % HCG, Qual Negative (Negative) ED Medical Decision Making - Lab Data Result diagrams: 09/01/20 02:15 09/01/20 02:15 - Radiology Data Radiology results: report reviewed, image reviewed interpreted by me: Abdominal x-ray shows nonspecific nonobstructive bowel gas ULTRASOUND ABDOMEN, LIMITED (RIGHT UPPER QUADRANT) INDICATION: Abdominal pain with nausea for one day. COMPARISON: None available. FINDINGS: PANCREAS: Visualized portion shows no significant abnormality. LIVER: No significant abnormality. GALLBLADDER: No significant abnormality. BILE DUCTS: No significant abnormality. Common bile duct measures 2.9 mm. FREE FLUID: None. ADDITIONAL FINDINGS: The right kidney measures 7.9 cm in length and the right renal parenchyma measures 1.1 cm in thickness. IMPRESSION: 1. No acute abnormality. No evidence of gallstones. 2. Right renal atrophy. - Medical Decision Making This patient presents with a 1 day history of some right-sided abdominal pain, nausea and vomiting. She does have a history of diabetic gastroparesis. On examination the patient has some mild right upper quadrant abdominal tenderness to palpation but no guarding. The abdomen is soft, nondistended and nontoxic in appearance. Abdominal x-ray shows nonspecific nonobstructive bowel gas. Patient's labs have been mostly unremarkable including CBC and metabolic panel, but the patient does have some renal insufficiency consistent with her end-stage renal disease on hemodialysis. She has been given a small amount of IV fluid resuscitation, antiemetics and a dose of IV analgesia. Patient will have an abdominal ultrasound, given her symptoms and her history of cholelithiasis. If negative for any acute abdominal process, or something that requires admission or surgical intervention, the patient will be discharged home to follow-up with her slurry tank tender, pmo project manager, and continue her normal dialysis regimen. The patient will be signed out to the incoming ED physician, Dr Vasquez, to follow the ultrasound results. Critical Care Time: No Critical care attestation.: If time is entered above; I have spent that time in minutes in the direct care of this critically ill patient, excluding procedure time. ED Disposition Clinical Impression: ESRD on hemodialysis, Diabetic gastropathy Abdominal pain Qualifiers: Abdominal location: right upper quadrant Qualified Code(s): R10.11 - Right upper quadrant pain Nausea & vomiting Qualifiers: Vomiting type: unspecified Vomiting Intractability: non-intractable Qualified Code(s): R11.2 - Nausea with vomiting, unspecified Hypertension Qualifiers: Hypertension type: essential hypertension Qualified Code(s): I10 - Essential (primary) hypertension Disposition: TO HOME OR SELFCARE Is pt being admited?: No Condition: Stable Instructions: Acute Nausea and Vomiting (ED), Abdominal Pain (ED), Hypertension (ED), End-Stage Kidney Disease (ED) Additional Instructions: Go to your dialysis session today. Please follow-up with your pmo project manager and slurry tank tender. Return to the emergency department with any worsening of your symptoms, new or concerning symptoms not addressed during this current emergency department vis it, or with any acute distress. Prescriptions: Metoclopramide [Reglan TAB] 10 mg PO TID PRN #20 tab PRN Reason: Nausea Referrals: PRIMARY CAREMD [Primary Care Provider] - 2-3 Days DAYA HILL MD [Staff Physician] - 2-3 Days KODI PATEL MD [Staff Physician] - 2-3 Days
--- NOTE | 2020-09-01 06:57 | Ultrasound Report ---
ULTRASOUND ABDOMEN, LIMITED (RIGHT UPPER QUADRANT) INDICATION: Abdominal pain with nausea for one day. COMPARISON: None available. FINDINGS: PANCREAS: Visualized portion shows no significant abnormality. LIVER: No significant abnormality. GALLBLADDER: No significant abnormality. BILE DUCTS: No significant abnormality. Common bile duct measures 2.9 mm. FREE FLUID: None. ADDITIONAL FINDINGS: The right kidney measures 7.9 cm in length and the right renal parenchyma measur es 1.1 cm in thickness. IMPRESSION: 1. No acute abnormality. No evidence of gallstones. 2. Right renal atrophy. Signer Name: Deven Mata MD Signed: 09/01/2020 6:52 AM Workstation Name: [id number]
[2020-09-01] MEDS ORDERED: ONDANSETRON 4 MG/2 ML INJ ONE (07:57)
[2020-09-01 08:12] VITALS: BP 150/98
== END 2020-09-01 08:12 | disposition home or self-care (01) ==
LOC: ED 01:01
DX: E11.22 Type 2 diabetes mellitus with diabetic chronic kidney disease (principal); I12.0 Hypertensive chronic kidney disease with stage 5 chronic kidney disease or end stage renal disease; N18.6 End stage renal disease; K31.9 Disease of stomach and duodenum, unspecified; E11.43 Type 2 diabetes mellitus with diabetic autonomic (poly)neuropathy; K31.84 Gastroparesis; R10.11 Right upper quadrant pain; R11.2 Nausea with vomiting, unspecified; Z99.2 Dependence on renal dialysis; R56.9 Unspecified convulsions; Z98.890 Other specified postprocedural states; Z79.4 Long term (current) use of insulin; Z79.899 Other long term (current) drug therapy; Z91.013 Allergy to seafood; Z88.8 Allergy status to other drugs, medicaments and biological substances
CPT/HCPCS: 36415; 74019; 76705; 80053; 84703; 85025; 96361; 96374; 96375; 96376; 99285; J2270; J2405; J2765; J7040; J7030

== ENCOUNTER 2020-09-14 19:17 | Emergency (ER) | payer MEDICAID ==
[2020-09-14] MEDS ORDERED: ONDANSETRON 4 MG/2 ML INJ IV ONE (19:23)
[2020-09-14] MEDS ORDERED: SODIUM CHLORIDE 0.9% 500 ML 500 ML IV ONE (19:24)
--- NOTE | 2020-09-14 19:30 | Emergency Department Report ---
ED Abdominal Pain HPI - General Stated Complaint: VOMITING X 12HRS Time Seen by Provider: 09/14/20 19:22 Source: patient, EMS - History of Present Illness Initial Comments: Patient is 29 years old female with history of end-stage renal disease on hemodialysis. Patient had a lap cholecystectomy 2 weeks ago. Patient presented to the ER complaining of diffuse abdominal pain, nausea and vomiting for the last 2 to 3 days. Patient denied any fever or chills. Patient also denied any diarrhea. No chest pain or shortness of breath. Last dialysis was yesterday. MD Complaint: abdominal pain Location: diffuse Radiation: none Migration to: no migration Severity: moderate - Related Data Home Medications Medication Instructions Recorded Confirmed Last Taken hydrALAZINE [Apresoline TAB] 50 mg PO TID 02/13/18 08/05/20 08/04/20 Metoprolol Xl [Metoprolol 50 mg PO QDAY 11/04/18 08/05/20 08/04/20 SUCCINATE ER TAB] Insulin NPH Human Isophane 20 unit SQ ACHS 04/06/19 08/05/20 Unknown [HumuLIN N] Insulin Regular, Human [HumuLIN R] 20 unit SQ ACHS 04/06/19 08/05/20 08/05/20 Previous Rx's Medication Instructions Recorded Last Taken Type Ondansetron [Zofran Odt] 4 mg PO Q8HR #10 tab.rapdis 07/06/19 08/05/20 Rx Metoclopramide [Reglan] 10 mg PO ACHS #30 tablet 06/23/20 08/05/20 Rx Dicyclomine [Bentyl] 10 mg PO QID PRN #20 capsule 08/05/20 Unknown Rx Metoclopramide [Reglan TAB] 10 mg PO TID PRN #20 tab 09/01/20 Unknown Rx Ondansetron [Zofran Odt] 4 mg PO Q8HR PRN #14 tab.rapdis 09/15/20 Unknown Rx traMADoL [Ultram 50 MG tab] 50 mg PO Q4HR PRN #14 tablet 09/15/20 Unknown Rx Allergies Allergy/AdvReac Type Severity Reaction Status Date / Time shellfish derived Allergy Severe Angioedema Verified 12/11/18 09:58 hydrocodone Allergy Unknown Verified 04/06/19 10:25 ED Review of Systems ROS: Stated complaint: VOMITING X 12HRS Other details as noted in HPI Comment: All other systems reviewed and negative Constitutional: denies: chills, fever Respiratory: denies: cough, orthopnea, shortness of breath, SOB with exertion, SOB at rest Cardiovascular: denies: chest pain, palpitations Gastrointestinal: abdominal pain, nausea, vomiting Musculoskeletal: denies: back pain Neurological: denies: headache, weakness, numbness, paresthesias, confusion ED Past Medical Hx - Past Medical History Hx Hypertension: Yes Hx Congestive Heart Failure: No Hx Diabetes: Yes (type 1 (insulin)) Hx Deep Vein Thrombosis: No Hx Renal Disease: Yes (m/w/f) Hx Seizures: Yes Hx Asthma: No Hx COPD: No Hx HIV: No Additional medical history: gastroparesis - Surgical History Hx Pacemaker: No Hx Internal Defibrillator: No Additional Surgical History: Cataract surgery-bilat. 2012. vas cath right chest wall. left upper arm fistula - Social History Smoking Status: Never Smoker Substance Use Type: None - Medications Home Medications: Home Medications Medication Instructions Recorded Confirmed Last Taken Type hydrALAZINE [Apresoline TAB] 50 mg PO TID 02/13/18 08/05/20 08/04/20 History Metoprolol Xl [Metoprolol 50 mg PO QDAY 11/04/18 08/05/20 08/04/20 History SUCCINATE ER TAB] Insulin NPH Human Isophane 20 unit SQ ACHS 04/06/19 08/05/20 Unknown History [HumuLIN N] Insulin Regular, Human [HumuLIN R] 20 unit SQ ACHS 04/06/19 08/05/20 08/05/20 Hi story Ondansetron [Zofran Odt] 4 mg PO Q8HR #10 tab.rapdis 07/06/19 08/05/20 08/05/20 Rx Metoclopramide [Reglan] 10 mg PO ACHS #30 tablet 06/23/20 08/05/20 08/05/20 Rx Dicyclomine [Bentyl] 10 mg PO QID PRN #20 capsule 08/05/20 Unknown Rx Metoclopramide [Reglan TAB] 10 mg PO TID PRN #20 tab 09/01/20 Unknown Rx Ondansetron [Zofran Odt] 4 mg PO Q8HR PRN #14 tab.rapdis 09/15/20 Unknown Rx traMADoL [Ultram 50 MG tab] 50 mg PO Q4HR PRN #14 tablet 09/15/20 Unknown Rx ED Physical Exam - General General appearance: alert, in no apparent distress - Head Head exam: Present: atraumatic, normocephalic, normal inspection - Eye Eye exam: Present: normal appearance - ENT ENT exam: Present: normal exam, normal orophraynx, mucous membranes moist - Neck Neck exam: Present: normal inspection, full ROM. Absent: tenderness, meningismus, lymphadenopathy, thyromegaly - Respiratory Respiratory exam: Present: normal lung sounds bilaterally - Cardiovascular Cardiovascular Exam: Present: regular rate, normal rhythm, normal heart sounds - GI/Abdominal GI/Abdominal exam: Present: soft, normal bowel sounds. Absent: distended, tenderness, guarding, rebound, rigid, organomegaly, mass, bruit, pulsatile mass, hernia - Extremities Exam Extremities exam: Present: normal inspection, full ROM, normal capillary refill. Absent: tenderness, pedal edema, calf tenderness - Back Exam Back exam: Present: normal inspection, full ROM. Absent: CVA tenderness (R), CVA tenderness (L) - Neurological Exam Neurological exam: Present: alert, oriented X3, CN II-XII intact, normal gait, reflexes normal - Psychiatric Psychiatric exam: Present: normal mood - Skin Skin exam: Present: warm, intact, normal color ED Course Vital Signs 09/14/20 09/14/20 09/14/20 19:45 22:26 22:34 Pulse Rate 129 H 126 H 126 H Respiratory 20 20 Rate Blood Pressure 202/116 Blood Pressure 211/118 202/116 [Right] O2 Sat by Pulse 100 Oximetry 09/14/20 09/14/20 09/14/20 22:43 22:45 23:01 Pulse Rate 107 H 108 H 111 H Respiratory 14 15 12 Rate Blood Pressure 159/97 159/100 Blood Pressure [Right] O2 Sat by Pulse Oximetry 09/14/20 09/14/20 09/14/20 23:15 23:31 23:45 Pulse Rate 110 H 112 H 111 H Respiratory 20 19 28 H Rate Blood Pressure 166/103 167/101 176/103 Blood Pressure [Right] O2 Sat by Pulse Oximetry 09/15/20 00:01 Pulse Rate 115 H Respiratory 15 Rate Blood Pressure 166/96 Blood Pressure [Right] O2 Sat by Pulse Oximetry ED Medical Decision Making - Lab Data Result diagrams: 09/14/20 19:37 09/14/20 19:37 - EKG Data -: EKG Interpreted by Me EKG shows normal: sinus rhythm Rate: normal - EKG Data Interpretation: no acute changes - Radiology Data Radiology results: report reviewed - Medical Decision Making Patient is 29 years old female with history of end-stage renal disease on hemodialysis. Patient had a lap cholecystectomy 2 weeks ago. Patient presented to the ER complaining of diffuse abdominal pain, nausea and vomiting for the last 2 to 3 days. Patient denied any fever or chills. Patient also denied any diarrhea. No chest pain or shortness of breath. Last dialysis was yesterday. Patient received normal saline, Zofran, morphine and Dilaudid. Patient stated that she is feeling much better. Patient noticed to have elevated blood pressure patient given labetalol 20 mg IV and did help with her blood pressure. Patient is due for dialysis tomorrow patient advised to follow-up with her primary care physician in the next 2 to 3 days and to return to the ER if she develop any new symptoms. Critical care attestation.: If time is entered above; I have spent that time in minutes in the direct care of this critically ill patient, excluding procedure time. ED Disposition Clinical Impression: Abdominal pain, End stage renal disease, Nausea and vomiting Disposition: TO HOME OR SELFCARE Is pt being admited?: No Condition: Stable Instructions: Nausea, Adult, Abdominal Pain, Adult Prescriptions: traMADoL [Ultram 50 MG tab] 50 mg PO Q4HR PRN #14 tablet PRN Reason: Pain Ondansetron [Zofran Odt] 4 mg PO Q8HR PRN #14 tab.rapdis PRN Reason: Nausea And Vomiting
[2020-09-14 19:57] LABS: Basophils # (Auto) 0.1 K/mm3 (0.0-0.1); Basophils % (Auto) 0.8 % (0.0-1.8); Eosinophils % (Auto) 0.2 % (0.0-4.3); Hemoglobin 13.3 gm/dl (10.1-14.3); Lymphocytes # (Auto) 0.8 K/mm3 (1.2-5.4); Lymphocytes % (Auto) 9.9 % (13.4-35.0); Mean Corpuscular HGB Conc 32 % (30-34); Mean Corpuscular Volume 94 fl (79-97); Monocytes # (Auto) 0.4 K/mm3 (0.0-0.8); Monocytes % (Auto) 4.3 % (0.0-7.3); Platelet Count 140 K/mm3 (140-440); Red Blood Count 4.46 M/mm3 (3.65-5.03); Red Cell Distribution Width 14.8 % (13.2-15.2)
[2020-09-14 20:18] LABS: Alanine Aminotransferase 11 units/L (7-56); Albumin 4.4 g/dL (3.9-5); Blood Urea Nitrogen 31 mg/dL (7-17); Calcium 11.2 mg/dL (8.4-10.2); Hemolysis Index 15
[2020-09-14 20:27] LABS: BUN/Creatinine Ratio 4
[2020-09-14 20:28] LABS: Bilirubin,Direct < 0.2 mg/dL (0-0.2)
--- NOTE | 2020-09-14 22:03 | Cat Scan Report ---
CT ABDOMEN AND PELVIS WITHOUT CONTRAST INDICATION / CLINICAL INFORMATION: Pt complains of diffuse abd pain with nausea and vomiting x 2 day. TECHNIQUE: Axial CT images were obtained through the abdomen and pelvis without IV contrast. All CT scans at is location are performed using CT dose reduction for ALARA by means of automated exposure control. COMPARISON: 04/06/2019 CT abdomen pelvis FINDINGS: LOWER CHEST: Pulmonary mosaicism in the bilateral bases which could represent respiratory phase, alte rnatively and less likely small vessel or small airway disease. HEPATOBILIARY: Interval cholecystectomy with small amount of haziness in the gallbladder fossa and no fluid collection. Liver demonstrates no significant abnormality. PANCREAS: No significant abnormality. SPLEEN: No significant abnormality. ADRENALS: No significant abnormality. GENITOURINARY: No significant abnormality. GASTROINTESTINAL/MESENTERY: Appendix demonstrates no significant abnormality. No bowel obstruction or inflammation. Normal sized mesenteric lymph nodes without evidence of lymphadenopathy. No free air o r significant free fluid. RETROPERITONEUM: No significant adenopathy. REPRODUCTIVE ORGANS: No significant abnormality. VASCULAR: No significant abnormality. SKELETAL SYSTEM: No significant abnormality. ADDITIONAL FINDINGS: No significant abnormality. IMPRESSION: 1. Interval cholecystectomy with a small amount of fat stranding/haziness in the gallbladder fossa, p ossibly postoperative in nature. No significant disorganized fluid or focal fluid collection. 2. Additional findings as above. Signer Name: Deven Castro MD Signed: 09/14/2020 9:58 PM Workstation Name: [id number]
[2020-09-14] MEDS ORDERED: MORPHINE 4 MG/1 ML INJ IV ONE (22:29)
--- NOTE | 2020-09-14 23:07 | XRay Report ---
CHEST 1 VIEW INDICATION / CLINICAL INFORMATION: SOB. COMPARISON: 04/06/2019 FINDINGS: SUPPORT DEVICES: None. HEART / MEDIASTINUM: No significant abnormality. LUNGS / PLEURA: No significant pulmonary or pleural abnormality. No pneumothorax. ADDITIONAL FINDINGS: No significant additional findings. IMPRESSION: 1. No acute findings. No interval change. Signer Name: Celestina Bates MD Signed: 09/14/2020 11:03 PM Workstation Name: [id number]
[2020-09-15] MEDS ORDERED: HYDROmorphone 1 MG/1 ML INJ IV ONE (00:16)
[2020-09-15 02:44] VITALS: BP 163/94
== END 2020-09-15 02:40 | disposition home or self-care (01) ==
LOC: ED 19:17
DX: E10.22 Type 1 diabetes mellitus with diabetic chronic kidney disease (principal); I12.0 Hypertensive chronic kidney disease with stage 5 chronic kidney disease or end stage renal disease; N18.6 End stage renal disease; G40.909 Epilepsy, unspecified, not intractable, without status epilepticus; Z98.890 Other specified postprocedural states; Z79.4 Long term (current) use of insulin; Z91.013 Allergy to seafood; Z88.6 Allergy status to analgesic agent
CPT/HCPCS: 36415; 71045; 74176; 80048; 80076; 83690; 84703; 85025; 96361; 96374; 96375; 99285; J1170; J2270; J2405; J7040

== ENCOUNTER 2020-10-11 11:47 | Emergency (ER) | payer MEDICAID | END 2020-10-11 15:25 | LOC: ED 11:47 | DX: R11.2 Nausea with vomiting, unspecified (principal); R10.9 Unspecified abdominal pain; Z53.21 Procedure and treatment not carried out due to patient leaving prior to being seen by health care provider ==

== ENCOUNTER 2021-02-22 17:42 | Emergency (ER) | payer MEDICAID ==
[2021-02-22] MEDS ORDERED: MORPHINE 4 MG/1 ML INJ IV ONE (18:24)
[2021-02-22] MEDS ORDERED: ONDANSETRON 4 MG/2 ML INJ IV ONE (18:24)
[2021-02-22] MEDS ORDERED: diphenhydrAMINE 50 MG/ML VIAL IV ONE (18:29)
--- NOTE | 2021-02-22 18:29 | Emergency Department Report ---
ED Abdominal Pain HPI - General Chief Complaint: Abdominal Pain Stated Complaint: N/V Time Seen by Provider: 02/22/21 18:24 Source: EMS Mode of arrival: Wheelchair Limitations: No Limitations - History of Present Illness Initial Comments: Patient is 30 years old female with history of end-stage renal disease on hemodialysis. Last dialysis was Sunday. Patient go to dialysis Sunday, Sunday and Sunday. Patient presented to the ER via EMS complaining of diffuse abdominal pain, crampy in nature associated with nausea and vomiting. Patient stated that she is unable to keep anything down. Patient denied any fever or chills. No chest pain or shortness of breath. MD Complaint: abdominal pain -: days(s) Location: diffuse Radiation: none Severity: moderate Quality: sharp - Related Data Home Medications Medication Instructions Recorded Confirmed Last Taken hydrALAZINE [Apresoline TAB] 50 mg PO TID 02/13/18 08/05/20 08/04/20 Metoprolol Xl [Metoprolol 50 mg PO QDAY 11/04/18 08/05/20 08/04/20 SUCCINATE ER TAB] Insulin NPH Human Isophane 20 unit SQ ACHS 04/06/19 08/05/20 Unknown [HumuLIN N] Insulin Regular, Human [HumuLIN R] 20 unit SQ ACHS 04/06/19 08/05/20 08/05/20 Previous Rx's Medication Instructions Recorded Last Taken Type Ondansetron [Zofran Odt] 4 mg PO Q8HR #10 tab.rapdis 07/06/19 08/05/20 Rx Metoclopramide [Reglan] 10 mg PO ACHS #30 tablet 06/23/20 08/05/20 Rx Dicyclomine [Bentyl] 10 mg PO QID PRN #20 capsule 08/05/20 Unknown Rx Metoclopramide [Reglan TAB] 10 mg PO TID PRN #20 tab 09/01/20 Unknown Rx Ondansetron [Zofran Odt] 4 mg PO Q8HR PRN #14 tab.rapdis 09/15/20 Unknown Rx traMADoL [Ultram 50 MG tab] 50 mg PO Q4HR PRN #14 tablet 09/15/20 Unknown Rx Allergies Allergy/AdvReac Type Severity Reaction Status Date / Time shellfish derived Allergy Severe Angioedema Verified 12/11/18 09:58 hydrocodone Allergy Unknown Verified 04/06/19 10:25 ED Review of Systems ROS: Stated complaint: N/V Other details as noted in HPI Comment: All other systems reviewed and negative Constitutional: denies: chills, fever Respiratory: denies: cough, shortness of breath, SOB with exertion, SOB at rest, wheezing Cardiovascular: denies: chest pain, palpitations Gastrointestinal: abdominal pain, nausea, vomiting. denies: diarrhea, constipation, hematemesis, melena, hematochezia Musculoskeletal: denies: back pain ED Past Medical Hx - Past Medical History Hx Hypertension: Yes Hx Congestive Heart Failure: No Hx Diabetes: Yes (type 1 (insulin)) Hx Deep Vein Thrombosis: No Hx Renal Disease: Yes (m/w/f) Hx Seizures: Yes Hx Asthma: No Hx COPD: No Hx HIV: No Additional medical history: gastroparesis - Surgical History Hx Pacemaker: No Hx Internal Defibrillator: No Additional Surgical History: Cataract surgery-bilat. 2012. vas cath right chest wall. left upper arm fistula - Social History Smoking Status: Never Smoker Substance Use Type: None - Medications Home Medications: Home Medications Medication Instructions Recorded Confirmed Last Taken Type hydrALAZINE [Apresoline TAB] 50 mg PO TID 02/13/18 08/05/20 08/04/20 History Metoprolol Xl [Metoprolol 50 mg PO QDAY 11/04/18 08/05/20 08/04/20 History SUCCINATE ER TAB] Insulin NPH Human Isophane 20 unit SQ [facility] 04/06/19 08/05/20 Unknown History [HumuLIN N] Insulin Regular, Human [HumuLIN R] 20 unit SQ [facility] 04/06/19 08/05/20 08/05/20 History Ondansetron [Zofran Odt] 4 mg PO Q8HR #10 tab.rapdis 07/06/19 08/05/20 08/05/20 Rx Metoclopramide [Reglan] 10 mg PO ACHS #30 tablet 06/23/20 08/05/20 08/05/20 Rx Dicyclomine [Bentyl] 10 mg PO QID PRN #20 capsule 08/05/20 Unknown Rx Metoclopramide [Reglan TAB] 10 mg PO TID PRN #20 tab 09/01/20 Unknown Rx Ondansetron [Zofran Odt] 4 mg PO Q8HR PRN #14 tab.rapdis 09/15/20 Unknown Rx traMADoL [Ultram 50 MG tab] 50 mg PO Q4HR PRN #14 tablet 09/15/20 Unknown Rx ED Physical Exam - General Limitations: No Limitations General appearance: alert, other (Patient is actively vomiting in the ER.) - Head Head exam: Present: atraumatic, normocephalic, normal inspection - Eye Eye exam: Present: normal appearance - ENT ENT exam: Present: normal exam, normal orophraynx, mucous membranes moist - Neck Neck exam: Present: normal inspection, full ROM. Absent: tenderness, meningi smus - Respiratory Respiratory exam: Present: normal lung sounds bilaterally - Cardiovascular Cardiovascular Exam: Present: regular rate, normal rhythm, normal heart sounds - GI/Abdominal GI/Abdominal exam: Present: soft, normal bowel sounds. Absent: distended, tenderness, guarding, rebound, rigid, organomegaly, mass, bruit, pulsatile mass, hernia - Extremities Exam Extremities exam: Present: normal inspection, full ROM, normal capillary refill. Absent: tenderness, pedal edema, joint swelling, calf tenderness - Back Exam Back exam: Present: normal inspection, full ROM. Absent: CVA tenderness (R), CVA tenderness (L) - Neurological Exam Neurological exam: Present: alert, oriented X3, CN II-XII intact - Psychiatric Psychiatric exam: Present: normal mood - Skin Skin exam: Present: warm, intact, normal color ED Course Vital Signs 02/22/21 02/22/21 02/22/21 18:26 18:30 18:45 Pulse Rate 110 H 115 H 107 H Respiratory 22 26 H 20 Rate Blood Pressure 166/130 166/130 O2 Sat by Pulse 96 99 Oximetry 02/22/21 02/22/21 02/22/21 19:00 19:15 19:31 Pulse Rate 108 H 108 H 102 H Respiratory 21 28 H 17 Rate Blood Pressure 166/130 166/130 213/112 O2 Sat by Pulse 100 100 100 Oximetry 02/22/21 02/22/21 19:45 20:01 Pulse Rate 106 H 101 H Respiratory 30 H 14 Rate Blood Pressure 213/112 177/109 O2 Sat by Pulse 100 95 Oximetry ED Medical Decision Making - Lab Data Result diagrams: 02/22/21 18:36 02/22/21 18:36 - Medical Decision Making Patient is 30 years old female with history of end-stage renal disease on hemodialysis. Last dialysis was Sunday. Patient go to dialysis Sunday, Sunday and Sunday. Patient presented to the ER via EMS complaining of diffuse abdominal pain, crampy in nature associated with nausea and vomiting. Patient stated that she is unable to keep anything down. Patient denied any fever or chills. No chest pain or shortness of breath. Patient received morphine, fentanyl, Zofran, Benadryl and Reglan. Patient stated that she is feeling better. No more vomiting. Labs reviewed and is unremarkable except for her chronic kidney disease. Patient given prescription for Zofran and advised to follow-up with her primary doctor in the next 2 to 3 days and to return to the ER if she develop any new symptoms. Critical care attestation.: If time is entered above; I have spent that time in minutes in the direct care of this critically ill patient, excluding procedure time. ED Disposition Clinical Impression: Intractable abdominal pain, Intractable vomiting, Gastroparesis Disposition: TO HOME OR SELFCARE Is pt being admited?: No Condition: Stable Instructions: Abdominal Pain (ED), Nausea and Vomiting, Adult Referrals: PRIMARY CARE, [Primary Care Provider] - 3-5 Days
[2021-02-22 18:56] LABS: Basophils % (Auto) 0.8 % (0.0-1.8); Eosinophils % (Auto) 0.2 % (0.0-4.3); Hematocrit 33.5 % (30.3-42.9); Hemoglobin 10.7 gm/dl (10.1-14.3); Lymphocytes # (Auto) 0.9 K/mm3 (1.2-5.4); Lymphocytes % (Auto) 17.4 % (13.4-35.0); Mean Corpuscular HGB Conc 32 % (30-34); Mean Corpuscular Volume 92 fl (79-97); Monocytes # (Auto) 0.4 K/mm3 (0.0-0.8); Monocytes % (Auto) 6.7 % (0.0-7.3); Red Blood Count 3.64 M/mm3 (3.65-5.03); Red Cell Distribution Width 14.4 % (13.2-15.2)
[2021-02-22 19:01] LABS: Platelet Count 139 K/mm3 (140-440)
[2021-02-22 19:20] LABS: Alanine Aminotransferase 11 units/L (7-56); Albumin 4.3 g/dL (3.9-5); Blood Urea Nitrogen 29 mg/dL (7-17); Calcium 10.4 mg/dL (8.4-10.2); Hemolysis Index 17
[2021-02-22 19:21] LABS: BUN/Creatinine Ratio 3; Bilirubin,Direct < 0.2 mg/dL (0-0.2)
[2021-02-22] MEDS ORDERED: METOCLOPRAMIDE 10 MG/2 ML INJ IV ONE (21:45)
[2021-02-22] MEDS ORDERED: fentaNYL 100 MCG/2 ML INJ IV ONE (22:15)
[2021-02-22 23:00] VITALS: BP 156/87
== END 2021-02-22 23:00 | disposition home or self-care (01) ==
LOC: ED 17:42
DX: E10.43 Type 1 diabetes mellitus with diabetic autonomic (poly)neuropathy (principal); E10.22 Type 1 diabetes mellitus with diabetic chronic kidney disease; K31.84 Gastroparesis; R11.10 Vomiting, unspecified; R10.9 Unspecified abdominal pain; I12.0 Hypertensive chronic kidney disease with stage 5 chronic kidney disease or end stage renal disease; N18.6 End stage renal disease; Z86.69 Personal history of other diseases of the nervous system and sense organs; Z79.899 Other long term (current) drug therapy; Z99.2 Dependence on renal dialysis; Z91.013 Allergy to seafood; Z88.8 Allergy status to other drugs, medicaments and biological substances; Z98.890 Other specified postprocedural states
CPT/HCPCS: 36415; 80048; 80076; 83690; 84703; 85025; 96374; 96375; 99283; J1200; J2270; J2405; J2765; J3010

== ENCOUNTER 2021-03-29 15:39 | Emergency (ER) | payer MEDICAID ==
[2021-03-29] MEDS ORDERED: fentaNYL 100 MCG/2 ML INJ IV ONE ×2 (16:05→18:56)
[2021-03-29] MEDS ORDERED: ONDANSETRON 4 MG/2 ML INJ IV ONE (16:05)
[2021-03-29] MEDS ORDERED: METOCLOPRAMIDE 10 MG/2 ML INJ IV ONE (16:06)
--- NOTE | 2021-03-29 16:09 | Emergency Department Report ---
ED Abdominal Pain HPI - General Stated Complaint: NAUSEA/VOMITING Time Seen by Provider: 03/29/21 16:05 - History of Present Illness Initial Comments: Patient is 30 years old female with history of end-stage renal disease on hemodialysis. Last dialysis yesterday. Patient presented to the ER complaining acute abdominal pain, diffuse with no radiation. Patient stated the pain is similar to what he used to. Patient stated that she is unable to keep anything down. Patient is actively vomiting in the ER. Patient denied any fever or chills. No chest pain or shortness of breath. MD Complaint: abdominal pain -: Last night Location: diffuse Radiation: none Migration to: no migration Associated Symptoms: nausea, vomiting - Related Data Home Medications Medication Instructions Recorded Confirmed Last Taken hydrALAZINE [Apresoline TAB] 50 mg PO TID 02/13/18 08/05/20 08/04/20 Metoprolol Xl [Metoprolol 50 mg PO QDAY 11/04/18 08/05/20 08/04/20 SUCCINATE ER TAB] Insulin NPH Human Isophane 20 unit SQ ACHS 04/06/19 08/05/20 Unknown [HumuLIN N] Insulin Regular, Human [HumuLIN R] 20 unit SQ ACHS 04/06/19 08/05/20 08/05/20 Previous Rx's Medication Instructions Recorded Last Taken Type Ondansetron [Zofran Odt] 4 mg PO Q8HR #10 tab.rapdis 07/06/19 08/05/20 Rx Metoclopramide [Reglan] 10 mg PO ACHS #30 tablet 06/23/20 08/05/20 Rx Dicyclomine [Bentyl] 10 mg PO QID PRN #20 capsule 08/05/20 Unknown Rx Metoclopramide [Reglan TAB] 10 mg PO TID PRN #20 tab 09/01/20 Unknown Rx Ondansetron [Zofran Odt] 4 mg PO Q8HR PRN #14 tab.rapdis 09/15/20 Unknown Rx traMADoL [Ultram 50 MG tab] 50 mg PO Q4HR PRN #14 tablet 09/15/20 Unknown Rx Ondansetron [Zofran Odt] 4 mg PO Q8HR PRN #14 tab.rapdis 02/22/21 Unknown Rx traMADoL [Ultram 50 MG tab] 50 mg PO Q4HR PRN #14 tablet 02/22/21 Unknown Rx Allergies Allergy/AdvReac Type Severity Reaction Status Date / Time shellfish derived Allergy Severe Angioedema Verified 12/11/18 09:58 hydrocodone Allergy Unknown Verified 04/06/19 10:25 tramadol Allergy Unknown Verified 03/29/21 16:11 ED Review of Systems ROS: Stated complaint: NAUSEA/VOMITING Other details as noted in HPI Comment: All other systems reviewed and negative Constitutional: denies: chills, fever Respiratory: denies: cough, shortness of breath, SOB with exertion Cardiovascular: denies: chest pain Gastrointestinal: abdominal pain, nausea, vomiting. denies: diarrhea Musculoskeletal: denies: back pain Neurological: denies: headache, weakness, numbness, paresthesias, confusion ED Past Medical Hx - Past Medical History Hx Hypertension: Yes Hx Congestive Heart Failure: No Hx Diabetes: Yes (type 1 (insulin)) Hx Deep Vein Thrombosis: No Hx Renal Disease: Yes (m/w/f) Hx Seizures: Yes Hx Asthma: No Hx COPD: No Hx HIV: No Additional medical history: gastroparesis - Surgical History Hx Pacemaker: No Hx Internal Defibrillator: No Additional Surgical History: Cataract surgery-bilat. 2012. vas cath right chest wall. left upper arm fistula - Social History Smoking Status: Never Smoker Substance Use Type: None - Medications Home Medications: Home Medications Medication Instructions Recorded Confirmed Last Taken Type hydrALAZINE [Apresoline TAB] 50 mg PO TID 02/13/18 08/05/20 08/04/20 History Metoprolol Xl [Metoprolol 50 mg PO QDAY 11/04/18 08/05/20 08/04/20 History SUCCINATE ER TAB] Insulin NPH Human Isophane 20 unit SQ ACHS 04/06/19 08/05/20 Unknown History [HumuLIN N] Insulin Regular, Human [HumuLIN R] 20 unit SQ [facility] 04/06/19 08/05/20 08/05/20 History Ondansetron [Zofran Odt] 4 mg PO Q8HR #10 tab.rapdis 07/06/19 08/05/20 08/05/20 Rx Metoclopramide [Reglan] 10 mg PO ACHS #30 tablet 06/23/20 08/05/20 08/05/20 Rx Dicyclomine [Bentyl] 10 mg PO QID PRN #20 capsule 08/05/20 Unknown Rx Metoclopramide [Reglan TAB] 10 mg PO TID PRN #20 tab 09/01/20 Unknown Rx Ondansetron [Zofran Odt] 4 mg PO Q8HR PRN #14 tab.rapdis 09/15/20 Unknown Rx traMADoL [Ultram 50 MG tab] 50 mg PO Q4HR PRN #14 tablet 09/15/20 Unknown Rx Ondansetron [Zofran Odt] 4 mg PO Q8HR PRN #14 tab.rapdis 02/22/21 Unknown Rx traMADoL [Ultram 50 MG tab] 50 mg PO Q4HR PRN #14 tablet 02/22/21 Unknown Rx ED Physical Exam - General General appearance: alert, in no apparent distress - Head Head exam: Present: atraumatic, normocephalic, normal inspection - Eye Eye exam: Present: normal appearance, PERRL - ENT ENT exam: Present: normal exam, normal orophraynx, mucous membranes moist - Neck Neck exam: Present: normal inspection, full ROM. Absent: tenderness, meningismus - Respiratory Respiratory exam: Present: normal lung sounds bilaterally - Cardiovascular Cardiovascular Exam: Present: regular rate, normal rhythm, normal heart sounds - GI/Abdominal GI/Abdominal exam: Present: soft, normal bowel sounds. Absent: distended, tenderness, guarding, rebound, rigid, organomegaly, mass, bruit, pulsatile mass, hernia - Extremities Exam Extremities exam: Present: normal inspection, full ROM, normal capillary refill. Absent: tenderness, pedal edema, joint swelling, calf tenderness - Back Exam Back exam: Present: normal inspection, full ROM. Absent: CVA tenderness (R), CVA tenderness (L) - Neurological Exam Neurological exam: Present: alert, oriented X3, CN II-XII intact, normal gait, reflexes normal. Absent: motor sensory deficit - Psychiatric Psychiatric exam: Present: normal mood - Skin Skin exam: Present: warm, intact, normal color ED Course Vital Signs 03/29/21 03/29/21 03/29/21 15:55 16:01 16:15 Temperature Pulse Rate 102 H 86 83 Respiratory 13 14 12 Rate Blood Pressure 218/122 218/122 O2 Sat by Pulse 99 98 96 Oximetry 03/29/21 03/29/21 03/29/21 16:45 17:31 17:37 Temperature 97.8 F Pulse Rate 82 91 H Respiratory 13 17 Rate Blood Pressure 175/105 165/100 O2 Sat by Pulse 94 97 Oximetry ED Medical Decision Making - Lab Data Result diagrams: 03/29/21 16:22 03/29/21 16:22 - Medical Decision Making Patient is 30 years old female with history of end-stage renal disease on hemodialysis. Last dialysis yesterday. Patient presented to the ER complaining acute abdominal pain, diffuse with no radiation. Patient stated the pain is similar to what he used to. Patient stated that she is unable to keep anything down. Patient is actively vomiting in the ER. Patient denied any fever or chills. No chest pain or shortness of breath. Patient received Zofran, Reglan and fentanyl. Patient stated that she is feeling much better. No vomiting observed in the ER. Patient stated that her abdominal pain is much better. Patient again stated that this is similar to her previous symptoms of gastroparesis. No imaging required at this time since patient abdomen exam is completely benign with no tenderness or rebound tenderness or guarding. Patient given prescription for Zofran and tramadol and advised to follow-up with her primary doctor in the next 2 to 3 days and to return to the ER if she develop any new symptoms. Critical care attestation.: If time is entered above; I have spent that time in minutes in the direct care of this critically ill patient, excluding procedure time. ED Disposition Clinical Impression: Intractable nausea and vomiting, End stage renal disease, Acute abdominal pain Disposition: - TO HOME OR SELFCARE Is pt being admited?: No Condition: Stable Instructions: Nausea and Vomiting, Adult, Abdominal Pain, Adult, [id number] Referrals: PRIMARY CARE,MD [Primary Care Provider] - 3-5 Days
[2021-03-29 16:31] LABS: Hematocrit 52.6 % (30.3-42.9); Hemoglobin 16.9 gm/dl (10.1-14.3); Mean Corpuscular HGB Conc 32 % (30-34); Mean Corpuscular Volume 96 fl (79-97); Red Cell Distribution Width 16.9 % (13.2-15.2)
[2021-03-29 16:57] LABS: Alanine Aminotransferase 17 units/L (7-56); Albumin 4.1 g/dL (3.9-5); Blood Urea Nitrogen 25 mg/dL (7-17); Calcium 10.1 mg/dL (8.4-10.2); Hemolysis Index 9; Platelet Count 161 K/mm3 (140-440)
[2021-03-29 17:09] LABS: BUN/Creatinine Ratio 2; Bilirubin,Direct < 0.2 mg/dL (0-0.2)
[2021-03-29 18:35] LABS: Platelet Clumps Rare; Total Cells Counted 100
[2021-03-29 18:36] LABS: Giant Platelets Rare; RBC Morphology Normal
[2021-03-29 19:38] VITALS: BP 160/90
== END 2021-03-29 19:35 | disposition home or self-care (01) ==
LOC: ED 15:39
DX: E11.22 Type 2 diabetes mellitus with diabetic chronic kidney disease (principal); I12.0 Hypertensive chronic kidney disease with stage 5 chronic kidney disease or end stage renal disease; N18.6 End stage renal disease; R11.2 Nausea with vomiting, unspecified; R10.84 Generalized abdominal pain; R56.9 Unspecified convulsions; Z99.2 Dependence on renal dialysis; Z98.890 Other specified postprocedural states; Z79.4 Long term (current) use of insulin; Z79.899 Other long term (current) drug therapy; Z91.013 Allergy to seafood; Z88.8 Allergy status to other drugs, medicaments and biological substances
CPT/HCPCS: 36415; 80048; 80076; 83690; 84703; 85007; 85025; 96374; 96375; 96376; 99284; J2405; J2765; J3010

== ENCOUNTER 2021-08-25 11:59 | Outpatient (CLI) | payer MEDICAID ==
--- NOTE | 2021-08-25 15:01 | Cat Scan Report ---
CT PELVIS WITH CONTRAST INDICATION / CLINICAL INFORMATION: ABDOMINAL AND PELVIC PAIN 100 ml omni 300. TECHNIQUE: Axial CT images were obtained through the pelvis after 100 cc of Omnipaque [address] scans at this location are performed using CT dose reduction for ALARA by means of automated exposure control. COMPARISON: CT scan dated 09/14/2020 FINDINGS: BOWEL: No significant abnormality. APPENDIX: No significant abnormality. PERITONEUM: No free fluid. No free air. No fluid collection. LYMPH NODES: No significant adenopathy. ARTERIES: No significant abnormality. VEINS: No significant abnormality. URINARY BLADDER: No significant abnormality. REPRODUCTIVE ORGANS: No significant abnormality. ADDITIONAL FINDINGS: There is a nodule in the subcutaneous fat in the right lower abdominal/pelvic wa ll which measures 2.3 x 1.7 cm. This has been present on prior exams. On the most recent prior study this measured 2.3 x 1.2 cm. This measured 2.2 x 0.9 cm on 04/06/2019. This may be associated with this scar from a Pfannenstiel type incision. SKELETAL SYSTEM: No significant abnormality. IMPRESSION: 1. There is no obstruction, inflammation, or free air pelvis. 2. There is a nodule in the subcutaneous fat in the right lower abdominal/pelvic wall, series 4 image 25. This has shown mild progressive enlargement since 2019. This is nonspecific. This may represent a complex seroma associated with scar. Correlation with patient's prior surgical history is recommend ed. Signer Name: Kristofer Romo MD Signed: 08/25/2021 2:56 PM Workstation Name: [id number]
== END 2021-08-25 12:00 | disposition home or self-care (01) ==
LOC: CT 11:59
PROVIDERS: ATTEND Obstetrics & Gynecology
DX: R19.09 Other intra-abdominal and pelvic swelling, mass and lump (principal)
CPT/HCPCS: 36415; 72193; 82565; 84520; Q9967

== ENCOUNTER 2021-08-29 13:02 | Emergency (ER) | payer MEDICAID ==
--- NOTE | 2021-08-29 13:32 | Consultation ---
History of Present Illness - Reason for Consult Consult date: 08/29/21 - History of Present Illness [facility] Consult Note # Demographics Consult Type: Acute Stroke Level 1 (0-4.5 hrs) Patient Location: Emergency Room First Name: merlyn Last Name: jonathan Date of : 1990 Age: 30 Gender: Female Facility: [facility] Time of Initial Page ( Time): 08/29/2021, 13:13 Time of Return Call ( Time): 08/29/2021, 13:14 # HPI History: 30yo woman who had severe headache and right sided numbness. Onset was at around 1145AM after dialysis. She has blurry vision on right side She states she has had similar episodes in the past. Associated Symptoms: headache light sensitivity nausea sound sensitivity vision changes no vomiting # Scores Time of exam and NIHSS ( Time): 08/29/2021, 13:30 Level of Consciousness 1a: [0] = Alert; keenly responsive LOC Questions 1b: [0] = Answers both questions correctly LOC Commands 1c: [0] = Performs both tasks correctly Best Gaze 2: [0] = Normal Visual 3: [0] = No visual loss Facial Palsy 4: [0] = Normal symmetrical movements Motor Arm Left 5a: [0] = No drift Motor Arm Right 5b: [1] = Drift Motor Leg Left 6a: [0] = No drift Motor Leg Right 6b: [1] = Drift Limb Ataxia 7: [0] = Absent Sensory 8: [1] = [id number] sensory loss Best Language 9: [0] = No aphasia Dysarthria 10: [0] = Normal Extinction and Inattention 11: [0] = No abnormality NIHSS Total: 3 # Exam SBP: 216 DBP: 106 # PMH-FH-SH Past Medical History: chronic kidney disease Diabetes dialysis Social History: non-smoker non-drinker Medications: denies # Data Glucose: [address]: no bleed # Assessment Impression: Migraine (Complex) less likely stroke. possible 2/2 severe HTN # Plan Thrombolytic/Intervention: NOT IV Thrombolysis or IA Intervention candidate Thrombolytic Exclusion (< 3 hour window): non-disabling deficit Intraarterial Exclusion: clinically not consistent with stroke Target Blood Pressure: SBP < 180 SBP > 120 Imaging: (urgency: STAT): CT Angiogram Head and CT Angiogram Neck Imaging: (urgency: routine): MRI Brain without contrast Medication: migraine cocktail: Toradol 30 mg IV + Benadryl 25 mg IV + antiemetic IV Other: would not pursue stroke work-up if MRI is negative I have discussed my recommendations with the referring provider Medications and Allergies Allergies Allergy/AdvReac Type Severity Reaction Status Date / Time shellfish derived Allergy Severe Angioedema Verified 12/11/18 09:58 hydrocodone Allergy Unknown Verified 04/06/19 10:25 tramadol Allergy Unknown Verified 03/29/21 16:11 Home Medications Medication Instructions Recorded Confirmed Last Taken Type hydrALAZINE [Apresoline TAB] 50 mg PO TID 02/13/18 08/05/20 08/04/20 History Metoprolol Xl [Metoprolol 50 mg PO QDAY 11/04/18 08/05/20 08/04/20 History SUCCINATE ER TAB] Insulin NPH Human Isophane 20 unit SQ ACHS 04/06/19 08/05/20 Unknown History [HumuLIN N] Insulin Regular, Human [HumuLIN R] 20 unit SQ ACHS 04/06/19 08/05/20 08/05/20 History Ondansetron [Zofran Odt] 4 mg PO Q8HR #10 tab.rapdis 07/06/19 08/05/20 08/05/20 Rx Metoclopramide [Reglan] 10 mg PO ACHS #30 tablet 06/23/20 08/05/20 08/05/20 Rx Dicyclomine [Bentyl] 10 mg PO QID PRN #20 capsule 08/05/20 Unknown Rx Metoclopramide [Reglan TAB] 10 mg PO TID PRN #20 tab 09/01/20 Unknown Rx Ondansetron [Zofran Odt] 4 mg PO Q8HR PRN #14 tab.rapdis 09/15/20 Unknown Rx traMADoL [Ultram 50 MG tab] 50 mg PO Q4HR PRN #14 tablet 09/15/20 Unknown Rx Ondansetron [Zofran Odt] 4 mg PO Q8HR PRN #14 tab.rapdis 02/22/21 Unknown Rx traMADoL [Ultram 50 MG tab] 50 mg PO Q4HR PRN #14 tablet 02/22/21 Unknown Rx Ondansetron [Zofran Odt] 4 mg PO Q8HR PRN #14 tab.rapdis 03/29/21 Unknown Rx traMADoL [Ultram 50 MG tab] 50 mg PO Q4HR PRN #14 tablet 03/29/21 Unknown Rx
--- NOTE | 2021-08-29 13:41 | Cat Scan Report ---
CT head/brain wo con INDICATION: Stroke symptoms. TECHNIQUE: Routine CT head. All CT scans at this location are performed using CT dose reduction for A YIMI by means of automated exposure control. COMPARISON: None. FINDINGS: Intracranial: Jacobs-white matter differentiation is maintained. No intracranial hemorrhage. No extra a xial collection. No hydrocephalus. No herniation. Sinuses: Paranasal sinuses and mastoid air cells are essentially clear. Orbits: Globes are intact. Calvarium: No acute fracture. IMPRESSION: 1. No acute intracranial abnormality. Signer Name: Spenser Azar MD Signed: 08/29/2021 1:36 PM Workstation Name: [id number]
[2021-08-29] MEDS ORDERED: MORPHINE 4 MG/1 ML INJ IV ONE (13:55)
[2021-08-29] MEDS ORDERED: ONDANSETRON 4 MG/2 ML INJ IV ONE (13:55)
[2021-08-29] MEDS ORDERED: ONDANSETRON 4 MG/2 ML INJ ONE (13:57)
[2021-08-29] MEDS ORDERED: MORPHINE 4 MG/1 ML INJ ONE (13:58)
--- NOTE | 2021-08-29 14:02 | Emergency Department Report ---
ED Neuro Deficit HPI - General Chief Complaint: Neuro Symptoms/Deficit Stated Complaint: STROKE Time Seen by Provider: 08/29/21 13:08 Source: EMS Mode of arrival: Stretcher Limitations: No Limitations - History of Present Illness Initial Comments: Patient is 30 years old female with history of end-stage renal disease on hemodialysis. Patient brought to the emergency room from home for evaluation of possible stroke. Patient stated that she finished her dialysis and went home and 45 minutes later she started to have right facial numbness right upper extremity weakness and right lower extremity weakness 2. Patient also complaining of headache. Patient complaining of blurry vision. Patient denies any speech problem. Stroke protocol immediately initiated and patient moved to CT for stat CT brain without contrast. Patient has been evaluated also by the stroke telemetry neurologist . -: Sudden, This afternoon Location: right face, right arm, right leg Presenting Symptoms: Present: Weak/Paralyzed One Side, Facial Droop/Numbness Place: home Associated Symptoms: denies other symptoms - Related Data Home Medications: Home Medications Medication Instructions Recorded Confirmed Last Taken hydrALAZINE [Apresoline TAB] 50 mg PO TID 02/13/18 08/05/20 08/04/20 Metoprolol Xl [Metoprolol 50 mg PO QDAY 11/04/18 08/05/20 08/04/20 SUCCINATE ER TAB] Insulin NPH Human Isophane 20 unit SQ ACHS 04/06/19 08/05/20 Unknown [HumuLIN N] Insulin Regular, Human [HumuLIN R] 20 unit SQ ACHS 04/06/19 08/05/20 08/05/20 Previous Rx's Medication Instructions Recorded Last Taken Type Ondansetron [Zofran Odt] 4 mg PO Q8HR #10 tab.rapdis 07/06/19 08/05/20 Rx Metoclopramide [Reglan] 10 mg PO ACHS #30 tablet 06/23/20 08/05/20 Rx Dicyclomine [Bentyl] 10 mg PO QID PRN #20 capsule 08/05/20 Unknown Rx Metoclopramide [Reglan TAB] 10 mg PO TID PRN #20 tab 09/01/20 Unknown Rx Ondansetron [Zofran Odt] 4 mg PO Q8HR PRN #14 tab.rapdis 09/15/20 Unknown Rx traMADoL [Ultram 50 MG tab] 50 mg PO Q4HR PRN #14 tablet 09/15/20 Unknown Rx Ondansetron [Zofran Odt] 4 mg PO Q8HR PRN #14 tab.rapdis 02/22/21 Unknown Rx traMADoL [Ultram 50 MG tab] 50 mg PO Q4HR PRN #14 tablet 02/22/21 Unknown Rx Ondansetron [Zofran Odt] 4 mg PO Q8HR PRN #14 tab.rapdis 03/29/21 Unknown Rx traMADoL [Ultram 50 MG tab] 50 mg PO Q4HR PRN #14 tablet 03/29/21 Unknown Rx Ondansetron [Zofran Odt] 4 mg PO Q8HR PRN #14 tab.rapdis 08/29/21 Unknown Rx oxyCODONE /ACETAMINOPHEN [Percocet 1 tab PO Q6HR PRN #10 tablet 08/29/21 Unknown Rx 5/325] Allergies/Adverse Reactions: Allergies Allergy/AdvReac Type Severity Reaction Status Date / Time shellfish derived Allergy Severe Angioedema Verified 12/11/18 09:58 hydrocodone Allergy Unknown Verified 04/06/19 10:25 tramadol Allergy Unknown Verified 03/29/21 16:11 ED Review of Systems ROS: Stated complaint: STROKE Other details as noted in HPI Comment: All other systems reviewed and negative Constitutional: denies: chills, diaphoresis, fever Cardiovascular: denies: chest pain, palpitations Gastrointestinal: denies: abdominal pain, nausea, vomiting Musculoskeletal: denies: back pain Neurological: headache, weakness, numbness. denies: paresthesias, confusion, abnormal gait ED Past Medical Hx - Past Medical History Previous Medical History?: Yes Hx Hypertension: Yes Hx Congestive Heart Failure: No Hx Diabetes: Yes (type 1 (insulin)) Hx Deep Vein Thrombosis: No Hx Renal Disease: Yes (m/w/f) Hx Seizures: Yes Hx Asthma: No Hx COPD: No Hx HIV: No Additional medical history: gastroparesis - Surgical History Past Surgical History?: Yes Hx Pacemaker: No Hx Internal Defibrillator: No Hx Cholecystectomy: Yes Additional Surgical History: Cataract surgery-bilat. 2012. vas cath right chest wall. left upper arm fistula - Social History Smoking Status: Never Smoker Substance Use Type: None - Medications Home Medications: Home Medications Medication Instructions Recorded Confirmed Last Taken Type hydrALAZINE [Apresoline TAB] 50 mg PO TID 02/13/18 08/05/20 08/04/20 History Metoprolol Xl [Metoprolol 50 mg PO QDAY 11/04/18 08/05/20 08/04/20 History SUCCINATE ER TAB] Insulin NPH Human Isophane 20 unit SQ ACHS 04/06/19 08/05/20 Unknown History [HumuLIN N] Insulin Regular, Human [HumuLIN R] 20 unit SQ ACHS 04/06/19 08/05/20 08/05/20 History Ondansetron [Zofran Odt] 4 mg PO Q8HR #10 tab.rapdis 07/06/19 08/05/20 08/05/20 Rx Metoclopramide [Reglan] 10 mg PO ACHS #30 tablet 06/23/20 08/05/20 08/05/20 Rx Dicyclomine [Bentyl] 10 mg PO QID PRN #20 capsule 08/05/20 Unknown Rx Metoclopramide [Reglan TAB] 10 mg PO TID PRN #20 tab 09/01/20 Unknown Rx Ondansetron [Zofran Odt] 4 mg PO Q8HR PRN #14 tab.rapdis 09/15/20 Unknown Rx traMADoL [Ultram 50 MG tab] 50 mg PO Q4HR PRN #14 tablet 09/15/20 Unknown Rx Ondansetron [Zofran Odt] 4 mg PO Q8HR PRN #14 tab.rapdis 02/22/21 Unknown Rx traMADoL [Ultram 50 MG tab] 50 mg PO Q4HR PRN #14 tablet 02/22/21 Unknown Rx Ondansetron [Zofran Odt] 4 mg PO Q8HR PRN #14 tab.rapdis 03/29/21 Unknown Rx traMADoL [Ultram 50 MG tab] 50 mg PO Q4HR PRN #14 tablet 03/29/21 Unknown Rx Ondansetron [Zofran Odt] 4 mg PO Q8HR PRN #14 tab.rapdis 08/29/21 Unknown Rx oxyCODONE /ACETAMINOPHEN [Percocet 1 tab PO Q6HR PRN #10 tablet 08/29/21 Unknown Rx 5/325] ED Neuro Physical Exam - General Limitations: No Limitations General appearance: alert, in no apparent distress Suspected Stroke: Yes - Head Head exam: Present: atraumatic, normocephalic, normal inspection - Eye Eye exam: Present: normal appearance, PERRL - ENT ENT exam: Present: normal exam, normal orophraynx, mucous membranes moist - Neck Neck exam: Present: normal inspection, full ROM. Absent: tenderness, meningismus - Respiratory Respiratory exam: Present: normal lung sounds bilaterally - Cardiovascular Cardiovascular Exam: Present: regular rate, normal rhythm, normal heart sounds - GI/Abdominal GI/Abdominal exam: Present: soft, normal bowel sounds. Absent: distended, tenderness, guarding, rebound, rigid, organomegaly, mass, bruit, pulsatile mass, hernia - Extremities Exam Extremities exam: Present: normal inspection, full ROM, normal capillary refill - Back Exam Back exam: Present: normal inspection, full ROM. Absent: CVA tenderness (R), CVA tenderness (L) - Neurological Exam Neurological exam: Present: alert, oriented X3 - NIHSS Assessment Interval: Baseline 1a. Level of Consciousness: alert/keenly responsive 1b. LOC Questions: answers both correctly 1c. LOC Commands: performs tasks correctly 2. Best Gaze: normal 3. Visual: no visual loss 4. Facial Palsy: normal symmetrical movement 5b. Motor Arm Right: no drift 5a. Motor Arm Left: no drift 6a. Motor Leg Left: no drift 6b. Motor Leg Right: drift 7. Limb Ataxia: absent 8. Sensory: normal 9. Best Language: no aphasia 10. Dysarthria: normal 11. Extinction/Inattention: no abnormality Total Score: 1 Stroke Severity: Minor Stroke - Psychiatric Psychiatric exam: Present: normal mood - Skin Skin exam: Present: warm, intact, normal color ED Course Vital Signs 08/29/21 08/29/21 08/29/21 13:23 13:25 13:40 Temperature 97.8 F 97.8 F Pulse Rate 75 75 Respiratory 12 12 Rate Blood Pressure 216/106 Blood Pressure 216/106 [Right] O2 Sat by Pulse 100 100 100 Oximetry 08/29/21 08/29/21 08/29/21 14:30 15:24 15:32 Temperature Pulse Rate 78 75 75 Respiratory 15 17 Rate Blood Pressure 189/106 Blood Pressure 212/110 189/106 [Right] O2 Sat by Pulse 98 96 Oximetry 08/29/21 08/29/21 16:22 17:41 Temperature Pulse Rate 81 81 Respiratory 14 14 Rate Blood Pressure Blood Pressure 162/84 162/84 [Right] O2 Sat by Pulse 96 96 Oximetry - Lab Data Result diagrams: 08/29/21 14:41 08/29/21 14:41 Lab Results 08/29/21 08/29/21 08/29/21 Range/Units 14:41 14:41 14:41 WBC 4.3 L (4.5-11.0) K/mm3 RBC 4.32 (3.65-5.03) M/mm3 Hgb 11.8 (10.1-14.3) gm/dl Hct 38.1 (30.3-42.9) % MCV 88 (79-97) fl MCH 27 L (28-32) pg MCHC 31 (30-34) % RDW 16.1 H (13.2-15.2) % Plt Count 131 L (140-440) K/mm3 Lymph % (Auto) 25.1 (13.4-35.0) % [place] % (Auto) 12.8 H (0.0-7.3) % Eos % (Auto) 3.1 (0.0-4.3) % Baso % (Auto) 1.3 (0.0-1.8) % Lymph # (Auto) 1.1 L (1.2-5.4) K/mm3 [place] # (Auto) 0.5 (0.0-0.8) K/mm3 Eos # (Auto) 0.1 (0.0-0.4) K/mm3 Baso # (Auto) 0.1 (0.0-0.1) K/mm3 Seg Neutrophils % 57.7 (40.0-70.0) % Seg Neutrophils # 2.5 (1.8-7.7) K/mm3 PT 14.5 (12.2-14.9) Sec. INR 1.02 (0.87-1.13) APTT 33.1 (24.2-36.6) Sec. Thrombin Time 18.7 (15.1-19.6) Sec. Sodium 136 L (137-145) mmol/L Potassium 3.8 (3.6-5.0) mmol/L Chloride 94.6 L (98-107) mmol/L Carbon Dioxide 26 (22-30) mmol/L Anion Gap 19 mmol/L BUN 24 H (7-17) mg/dL Creatinine 7.6 H (0.6-1.2) mg/dL Estimated GFR 8 ml/min BUN/Creatinine Ratio 3 % Glucose 181 H (65-100) mg/dL Calcium 8.9 (8.4-10.2) mg/dL Total Creatine Kinase 88 (30-135) units/L CK-MB (CK-2) 1.2 (0.0-4.0) ng/mL CK-MB (CK-2) Rel Index 1.3 (0-4) Troponin T 0.018 (0.00-0.029) ng/mL - Radiology Data Radiology results: report reviewed - Medical Decision Making Patient is 30 years old female with history of end-stage renal disease on hemodialysis. Patient brought to the emergency room from home for evaluation of possible stroke. Patient stated that she finished her dialysis and went home and 45 minutes later she started to have right facial numbness right upper extremity weakness and right lower extremity weakness 2. Patient also complaining of headache. Patient complaining of blurry vision. Patient denies any speech problem. Stroke protocol immediately initiated and patient moved to CT for stat CT brain without contrast. Patient has been evaluated also by the stroke telemetry neurologist . CT brain is negative for acute finding. Patient found to be hypertensive with a blood pressure of 210/120. Dr. Elils stated that this is most likely complex migraine. Patient received morphine and Zofran. Patient also received hydralazine for blood pressure. Patient stated that she is feeling much better. Patient will be discharged home to follow-up with her primary care physician in the next 2 to 3 days and to return to the ER if she develop any symptoms. Critical Care Time: Yes Critical care time in (mins) excluding proc time.: 30 Critical care attestation.: If time is entered above; I have spent that time in minutes in the direct care of this critically ill patient, excluding procedure time. ED Disposition Clinical Impression: Right sided weakness, Acute headache Disposition: 01 HOME / SELF CARE / HOMELESS Is pt being admited?: No Condition: Stable Instructions: Migraine Headache, [id number] Prescriptions: oxyCODONE /ACETAMINOPHEN [Percocet 5/325] 1 tab PO Q6HR PRN #10 tablet PRN Reason: Pain Ondansetron [Zofran Odt] 4 mg PO Q8HR PRN #14 tab.rapdis PRN Reason: Nausea And Vomiting Referrals: PRIMARY CARE,MD [Primary Care Provider] - 3-5 Days
[2021-08-29 14:44] LABS: Basophils # (Auto) 0.1 K/mm3 (0.0-0.1); Basophils % (Auto) 1.3 % (0.0-1.8); Eosinophils # (Auto) 0.1 K/mm3 (0.0-0.4); Eosinophils % (Auto) 3.1 % (0.0-4.3); Hematocrit 38.1 % (30.3-42.9); Hemoglobin 11.8 gm/dl (10.1-14.3); Lymphocytes # (Auto) 1.1 K/mm3 (1.2-5.4); Lymphocytes % (Auto) 25.1 % (13.4-35.0); Mean Corpuscular HGB Conc 31 % (30-34); Mean Corpuscular Volume 88 fl (79-97); Monocytes # (Auto) 0.5 K/mm3 (0.0-0.8); Monocytes % (Auto) 12.8 % (0.0-7.3); Platelet Count 131 K/mm3 (140-440); Red Blood Count 4.32 M/mm3 (3.65-5.03); Red Cell Distribution Width 16.1 % (13.2-15.2)
[2021-08-29 15:10] LABS: Creatine Kinase MB 1.2 ng/mL (0.0-4.0)
--- NOTE | 2021-08-29 15:10 | XRay Report ---
CHEST 1 VIEW 08/29/2021 2:29 PM INDICATION / CLINICAL INFORMATION: STROKE. COMPARISON: 09/14/20. FINDINGS: SUPPORT DEVICES: None. HEART / MEDIASTINUM: There is moderate generalized enlargement of the cardiopericardial silhouette, n ew since the prior exam. Pulmonary vasculature is probably normal for technique. LUNGS / PLEURA: No significant pulmonary or pleural abnormality. No pneumothorax. ADDITIONAL FINDINGS: No significant additional findings. IMPRESSION: Moderate enlargement of the cardiopericardial silhouette. Differential diagnosis includes pericardial effusion and cardiomyopathy. Signer Name: Deven Mata MD Signed: 08/29/2021 3:05 PM Workstation Name: [id number]
[2021-08-29 15:11] LABS: Calcium 8.9 mg/dL (8.4-10.2)
[2021-08-29] MEDS ORDERED: hydrALAZINE 20 MG/1 ML INJ IV ONE (15:27)
[2021-08-29] MEDS ORDERED: hydrALAZINE 20 MG/1 ML INJ ONE (15:29)
[2021-08-29 15:34] LABS: INR 1.02 (0.87-1.13); Thrombin Time 18.7 Sec. (15.1-19.6)
[2021-08-29 16:23] VITALS: BP 162/84
[2021-08-29 17:38] LABS: Partial Thromboplastin Time 33.1 Sec. (24.2-36.6)
--- NOTE | 2021-08-30 19:02 | Electrocardiograph Report ---
[facility] Test Date: 2021-08-29 Test Time: 14:22:43 Pat Name: LIZBETH VIZCAINO Department: Room: Gender: F Dye Machine Tender: JORGE : 1990 Requested By: PANFILO JIMENEZ Order Number: [id number] Reading MD: Rashmi Hong Measurements Intervals [place] Rate: 76 P: 19 NH: 170 QRS: 54 QRSD: 75 T: 63 QT: 396 QTc: 447 Interpretive Statements Sinus rhythm No previous ECG available for comparison Electronically Signed On 08-30-2021 19:02:11 EDT by Rashmi Hong
== END 2021-08-29 17:42 | disposition home or self-care (01) ==
LOC: ED 13:02
DX: R53.1 Weakness (principal); R51.9 Headache, unspecified; I12.9 Hypertensive chronic kidney disease with stage 1 through stage 4 chronic kidney disease, or unspecified chronic kidney disease; E10.22 Type 1 diabetes mellitus with diabetic chronic kidney disease; N18.9 Chronic kidney disease, unspecified; Z90.49 Acquired absence of other specified parts of digestive tract; Z91.013 Allergy to seafood; Z88.5 Allergy status to narcotic agent; Z88.6 Allergy status to analgesic agent; Z79.4 Long term (current) use of insulin; Z79.899 Other long term (current) drug therapy
CPT/HCPCS: 36415; 70450; 71045; 80048; 82550; 82553; 84484; 85025; 85610; 85670; 85730; 93005; 96374; 96375; 99285; J0360; J2270; J2405

== ENCOUNTER 2021-09-14 06:46 | Inpatient (IN) | payer MEDICAID ==
--- NOTE | 2021-09-14 07:22 | Emergency Department Report ---
HPI - General Time Seen by Provider: 09/14/21 06:51 - HPI HPI: Room 2 The patient is a 30-year-old female present with a chief complaint of headache and right-sided weakness. Patient states she went to sleep last night at 2230 in her usual state of health. Patient states she was awakened at 0100 from the pain from a headache. Patient states she noticed blurred vision from the right eye and right-sided weakness. Patient states the right side of her face feels numb as well. Patient states she went back to sleep but then he awakened at 0500 with her symptoms still present prompting her to come to the emergency department. Patient states she has had TIAs in the past with the same presentation. ED Past Medical Hx - Past Medical History Hx Hypertension: Yes Hx Diabetes: Yes (type 1 (insulin)) Hx Renal Disease: Yes (ESRD HD Q m/w/f) Hx Seizures: Yes Additional medical history: gastroparesis - Surgical History Hx Cholecystectomy: Yes Additional Surgical History: Cataract surgery-bilat. 2012. vas cath right chest wall. left upper arm fistula - Family History Family history: no significant - Social History Smoking Status: Never Smoker Substance Use Type: None (Denies illicit drug use) - Medications Home Medications: Home Medications Medication Instructions Recorded Confirmed Last Taken Type hydrALAZINE [Apresoline TAB] 50 mg PO TID 02/13/18 08/05/20 08/04/20 History Metoprolol Xl [Metoprolol 50 mg PO QDAY 11/04/18 08/05/20 08/04/20 History SUCCINATE ER TAB] Insulin NPH Human Isophane 20 unit SQ ACHS 04/06/19 08/05/20 Unknown History [HumuLIN N] Insulin Regular, Human [HumuLIN R] 20 unit SQ [facility] 04/06/19 08/05/20 08/05/20 History Ondansetron [Zofran Odt] 4 mg PO Q8HR #10 tab.rapdis 07/06/19 08/05/20 08/05/20 Rx Metoclopramide [Reglan] 10 mg PO ACHS #30 tablet 06/23/20 08/05/20 08/05/20 Rx Dicyclomine [Bentyl] 10 mg PO QID PRN #20 capsule 08/05/20 Unknown Rx Metoclopramide [Reglan TAB] 10 mg PO TID PRN #20 tab 09/01/20 Unknown Rx Ondansetron [Zofran Odt] 4 mg PO Q8HR PRN #14 tab.rapdis 09/15/20 Unknown Rx traMADoL [Ultram 50 MG tab] 50 mg PO Q4HR PRN #14 tablet 09/15/20 Unknown Rx Ondansetron [Zofran Odt] 4 mg PO Q8HR PRN #14 tab.rapdis 02/22/21 Unknown Rx traMADoL [Ultram 50 MG tab] 50 mg PO Q4HR PRN #14 tablet 02/22/21 Unknown Rx Ondansetron [Zofran Odt] 4 mg PO Q8HR PRN #14 tab.rapdis 03/29/21 Unknown Rx traMADoL [Ultram 50 MG tab] 50 mg PO Q4HR PRN #14 tablet 03/29/21 Unknown Rx Ondansetron [Zofran Odt] 4 mg PO Q8HR PRN #14 tab.rapdis 08/29/21 Unknown Rx oxyCODONE /ACETAMINOPHEN [Percocet 1 tab PO Q6HR PRN #10 tablet 08/29/21 Unknown Rx 5/325] ED Review of Systems ROS: Stated complaint: STROKE Other details as noted in HPI Constitutional: no symptoms reported Eyes: vision change Respiratory: no symptoms reported Cardiovascular: denies: chest pain Endocrine: no symptoms reported Gastrointestinal: denies: abdominal pain Genitourinary: denies: dysuria Musculoskeletal: denies: back pain Neurological: headache, weakness, paresthesias Physical Exam - Physical Exam Physical Exam: GENERAL: The patient is well-developed well-nourished female lying on stretcher not appearing to be in acute distress. [] HEENT: Normocephalic. Atraumatic. Extraocular motions are intact. Patient has moist mucous membranes. NECK: Supple. Trachea midline CHEST/LUNGS: Clear to auscultation. There is no respiratory distress noted. HEART/CARDIOVASCULAR: Regular. There is no tachycardia. There is no gallop rub or murmur. ABDOMEN: Abdomen is soft, nontender. Patient has normal bowel sounds. There is no abdominal distention. SKIN: There is no rash. There is no edema. There is no diaphoresis. NEURO: The patient is awake, alert, and oriented. The patient is cooperative. The patient has normal speech. MUSCULOSKELETAL: There is no evidence of acute injury. ED Course - Consultations Consultation #1: 09/14/21 07:21 Case discussed with telemetry neurologist-no TPA, admit for CVA work-up. Recommends imaging of the vessels via CTA or MRA before discharge to rule out m[place] ED Medical Decision Making - Lab Data Result diagrams: 09/14/21 07:27 09/14/21 07:27 Laboratory Tests 09/14/21 09/14/21 09/14/21 07:27 07:27 07:27 WBC 3.4 L RBC 3.89 Hgb 10.7 Hct 34.3 MCV 88 MCH 27 L MCHC 31 RDW 17.7 H Plt Count 128 L Lymph % (Auto) 34.8 [place] % (Auto) 11.6 H Eos % (Auto) 4.5 H Baso % (Auto) 2.1 H Lymph # (Auto) 1.2 [place] # (Auto) 0.4 Eos # (Auto) 0.2 Baso # (Auto) 0.1 Seg Neutrophils % 47.0 Seg Neutrophils # 1.6 L PT 14.9 INR 1.05 APTT 29.7 Thrombin Time 22.2 H Sodium 138 Potassium 4.9 Chloride 97.7 L Carbon Dioxide 25 Anion Gap 20 BUN 44 H Creatinine 9.6 H Estimated GFR 6 BUN/Creatinine Ratio 5 Glucose 119 H Calcium 10.2 HCG, Qual 09/14/21 07:27 WBC RBC Hgb Hct MCV MCH MCHC RDW Plt Count Lymph % (Auto) [place] % (Auto) Eos % (Auto) Baso % (Auto) Lymph # (Auto) [place] # (Auto) Eos # (Auto) Baso # (Auto) Seg Neutrophils % Seg Neutrophils # PT INR APTT Thrombin Time Sodium Potassium Chloride Carbon Dioxide Anion Gap BUN Creatinine Estimated GFR BUN/Creatinine Ratio Glucose Calcium HCG, Qual Negative - EKG Data -: EKG Interpreted by Me EKG shows normal: sinus rhythm Rate: normal - EKG Data When compared to previous EKG there are: previous EKG unavailable Interpretation: normal EKG - Radiology Data Radiology results: report reviewed (CT head), image reviewed (CT head) [facility] [address] [place] [address] Cat Scan Report Signed Patient: LIZBETH VIZCAINO MR# : [id number] : 1990 Acct:[id number] Age/Sex: 30 / F ADM Date: 09/14/21 Loc: ED Attending Dr: Ordering Physician: ELAINA GUILLEN MD Date of Service: 09/14/21 Procedure(s): CT head/brain wo con Accession Number(s): [id number] cc: ELAINA GUILLEN MD CT HEAD WITHOUT CONTRAST INDICATION / CLINICAL INFORMATION: Hypertension, blurred vision, RT weakness. TECHNIQUE: All CT scans at this location are performed using CT dose reduction for ALARA by means of automated exposure control. COMPARISON: CT dated 08/29/21 FINDINGS: HEMORRHAGE: None. EXTRA-AXIAL SPACES: Normal in size and morphology for the patient's age. VENTRICULAR SYSTEM: Normal in size and morphology for the patient's age. CEREBRAL PARENCHYMA: No significant abnormality. No acute territorial infarct. MIDLINE SHIFT / HERNIATION: None. CEREBELLUM / BRAINSTEM: No significant abnormality. ORBITS: N ormal as visualized. SOFT TISSUES: No significant abnormality. SKULL: No significant abnormality. PARANASAL SINUSES / MASTOID AIR CELLS: Normal as visualized. ADDITIONAL FINDINGS: None. IMPRESSION: 1. No acute intracranial abnormality. No significant change. CODE STROKE Time of Communication (PROPERTY VALUER/CDT): 6:27 AM Licensed Practitioner Receiving Report: Dr. Guillen in the ED Signer Name: Beth Mckeon MD Signed: 09/14/2021 7:27 AM Workstation Name: [id number] Transcribed By: DT Dictated By: Brendan Mckeon MD Electronically Authenticated By: Brendan Mckeon MD Signed Date/Time: 09/14/21726 DD/ 3 TD/TT: Print Cancel - Differential Diagnosis CVA, TIA Critical care attestation.: If time is entered above; I have spent that time in minutes in the direct care of this critically ill patient, excluding procedure time. ED Disposition Clinical Impression: CVA (cerebral vascular accident) Disposition: 09 ADMITTED INPATIENT Is pt being admited?: Yes Does the pt Need Aspirin: Yes Condition: Fair Time of Disposition: 08:39 (Hospitalist called (Dr. Espinal))
[2021-09-14] MEDS ORDERED: METOCLOPRAMIDE 10 MG/2 ML INJ IV ONE (07:26)
[2021-09-14] MEDS ORDERED: diphenhydrAMINE 50 MG/ML VIAL IV ONE (07:26)
[2021-09-14] MEDS ORDERED: ASPIRIN 300 MG RECT SUPP PR ONE (07:28)
--- NOTE | 2021-09-14 07:32 | Cat Scan Report ---
CT HEAD WITHOUT CONTRAST INDICATION / CLINICAL INFORMATION: Hypertension, blurred vision, RT weakness. TECHNIQUE: All CT scans at this location are performed using CT dose reduction for ALARA by means of automated exposure control. COMPARISON: CT dated 08/29/21 FINDINGS: HEMORRHAGE: None. EXTRA-AXIAL SPACES: Normal in size and morphology for the patient's age. VENTRICULAR SYSTEM: Normal in size and morphology for the patient's age. CEREBRAL PARENCHYMA: No significant abnormality. No acute territorial infarct. MIDLINE SHIFT / HERNIATION: None. CEREBELLUM / BRAINSTEM: No significant abnormality. ORBITS: Normal as visualized. SOFT TISSUES: No significant abnormality. SKULL: No significant abnormality. PARANASAL SINUSES / MASTOID AIR CELLS: Normal as visualized. ADDITIONAL FINDINGS: None. IMPRESSION: 1. No acute intracranial abnormality. No significant change. CODE STROKE Time of Communication (WARP SCOURING VAT TENDER/CDT): 6:27 AM Licensed Practitioner Receiving Report: Dr. Boles in the ED Signer Name: Beth Mckeon MD Signed: 09/14/2021 7:27 AM Workstation Name: [id number]
--- NOTE | 2021-09-14 07:33 | Consultation ---
History of Present Illness Consult date: 09/14/21 Past History Past Medical History: diabetes, hypertension, renal failure Medications and Allergies Allergies Allergy/AdvReac Type Severity Reaction Status Date / Time shellfish derived Allergy Severe Angioedema Verified 12/11/18 09:58 hydrocodone Allergy Unknown Verified 04/06/19 10:25 tramadol Allergy Unknown Verified 03/29/21 16:11 Home Medications Medication Instructions Recorded Confirmed Last Taken Type hydrALAZINE [Apresoline TAB] 50 mg PO TID 02/13/18 08/05/20 08/04/20 History Metoprolol Xl [Metoprolol 50 mg PO QDAY 11/04/18 08/05/20 08/04/20 History SUCCINATE ER TAB] Insulin NPH Human Isophane 20 unit SQ ACHS 04/06/19 08/05/20 Unknown History [HumuLIN N] Insulin Regular, Human [HumuLIN R] 20 unit SQ ACHS 04/06/19 08/05/20 08/05/20 History Ondansetron [Zofran Odt] 4 mg PO Q8HR #10 tab.rapdis 07/06/19 08/05/20 08/05/20 Rx Metoclopramide [Reglan] 10 mg PO ACHS #30 tablet 06/23/20 08/05/20 08/05/20 Rx Dicyclomine [Bentyl] 10 mg PO QID PRN #20 capsule 08/05/20 Unknown Rx Metoclopramide [Reglan TAB] 10 mg PO TID PRN #20 tab 09/01/20 Unknown Rx Ondansetron [Zofran Odt] 4 mg PO Q8HR PRN #14 tab.rapdis 09/15/20 Unknown Rx traMADoL [Ultram 50 MG tab] 50 mg PO Q4HR PRN #14 tablet 09/15/20 Unknown Rx Ondansetron [Zofran Odt] 4 mg PO Q8HR PRN #14 tab.rapdis 02/22/21 Unknown Rx traMADoL [Ultram 50 MG tab] 50 mg PO Q4HR PRN #14 tablet 02/22/21 Unknown Rx Ondansetron [Zofran Odt] 4 mg PO Q8HR PRN #14 tab.rapdis 03/29/21 Unknown Rx traMADoL [Ultram 50 MG tab] 50 mg PO Q4HR PRN #14 tablet 03/29/21 Unknown Rx Ondansetron [Zofran Odt] 4 mg PO Q8HR PRN #14 tab.rapdis 08/29/21 Unknown Rx oxyCODONE /ACETAMINOPHEN [Percocet 1 tab PO Q6HR PRN #10 tablet 08/29/21 Unknown Rx 5/325] Review of Systems Eyes: right: decreased vision Ears, nose, mouth and throat: headache Physical Examination - Constitutional General appearance: uncomfortable - Assessment Assessment Interval: Baseline (See copied BSL note) Assessment and Plan [facility] Consult Note # Demographics Consult Type: Acute Stroke Level 2 (4.5-24 hrs) Patient Location: Emergency Room First Name: Hayden Last Name: Josue Date of : 1990 Age: 30 Gender: Female Facility: [facility] Time of Initial Page ( Time): 09/14/2021, 06:49 Time of Return Call ( Time): 09/14/2021, 06:49 # HPI Chief Complaint: vision changes headache Handedness: Right History: Headache woke patient up from sleep around 1am (went to bed 10:30pm) Could not see from right eye Reported history of TIA x2 - one episode 2 weeks ago had bad headache & right side went numb for one hour Last Known Normal: I have collected independent history specific to time last normal or last known well. We have collaborated with the provider and at this time, we have the most current timeline with the information that is available. 10:30pm Duration: constant hours Associated Symptoms: headache nausea vision changes vomiting # Scores Time of exam and NIHSS ( Time): 09/14/2021, 06:52 Level of Consciousness 1a: [0] = Alert; keenly responsive LOC Questions 1b: [0] = Answers both questions correctly LOC Commands 1c: [0] = Performs both tasks correctly Best Gaze 2: [0] = Normal Visual 3: [0] = No visual loss Facial Palsy 4: [0] = Normal symmetrical movements Motor Arm Left 5a: [0] = No drift Motor Arm Right 5b: [0] = No drift Motor Leg Left 6a: [0] = No drift Motor Leg Right 6b: [1] = Drift Limb Ataxia 7: [0] = Absent Sensory 8: [1] = Hnce-hh-xyxulkgh sensory loss Best Language 9: [0] = No aphasia Dysarthria 10: [0] = Normal Extinction and Inattention 11: [0] = No abnormality NIHSS Total: 2 Modified Domingo Scale (mRS) pre-stroke: [0] = No Symptoms Modified Domingo Scale total: 0 VAN Screening: Negative # Exam Vitals: vital signs reviewed SBP: 190 DBP: 120 Mental Status: awake alert and oriented x 3 follows commands Language: normal speech Cranial Nerves: Blurred vision right eye Motor: Decreased cna ltc strength on right Sensory: decreased sensation right face # ROS Eyes: vision changes/problems Gastrointestinal: nausea vomiting Neurologic: see HPI # PMH-FH-SH Past Medical History: Diabetes hypertension Kidney failure with hemodialysis -- Past Surgical History: cesarian section AV fistula for dialysis in left arm, bilateral cataract surgery Social History: non-smoker non-drinker Medications: antihypertensive Allergies: NKDA other shellfish, hydrocodone # Data Glucose: [address] personally read by me (Eastern Time): 09/14/2021, 07:[address]: no bleed preliminarily reviewed by me, please refer to radiology read for official reading # Assessment Impression: Headache Ischemic Stroke (Acute) Migraine (Complex) Sudden onset monocular vision changes with headache & hypertension - potential complex migraine versus ischemic stroke # Plan Thrombolytic/Intervention: NOT IV Thrombolysis or IA Intervention candidate Thrombolytic Exclusion (< 3 hour window): time of onset unclear Thrombolytic Exclusion: > 4.5 hours Target Blood Pressure: SBP < 220 Labs: CBC comprehensive metabolic panel ESR hemoglobin A1c lipid panel TSH Imaging: (urgency: routine): CT Angiogram Head MR Angiogram Head without contrast CTA versus MRA head to evaluate intracranial vasculature for evidence of dorman dorman syndrome (MRA head is reasonable given lack of contrast) Diagnostic Test: echo without bubble study Therapy/Evaluation: NPO until swallow evaluation PT/OT evaluation Medication: aspirin 81 mg PLUS clopidogrel (Plavix) 75 mg for 21 days, then monotherapy therafter start statin with goal of LDL < 70 migraine cocktail: Toradol 30 mg IV + Benadryl 25 mg IV + antiemetic IV Dual antiplatelet therapy can be discontinued if symptoms resolve with migraine cocktail & MRI negative for acute ischemia (clinic presentation more suggestive for migraine) DVT Prophylaxis: SCD chemical DVT prophylaxis Other: permissive hypertension telemetry monitoring would not pursue stroke work-up if MRI is negative I have discussed my recommendations with the referring provider Additional Recommendations: Outpatient consultation with Ophthalmology for further evaluation & management of visual symptoms Disposition: admit
[2021-09-14] MEDS: ONDANSETRON 4 MG/2 ML INJ IV ONE (07:35)
[2021-09-14 07:43] LABS: Basophils # (Auto) 0.1 K/mm3 (0.0-0.1); Basophils % (Auto) 2.1 % (0.0-1.8); Eosinophils # (Auto) 0.2 K/mm3 (0.0-0.4); Eosinophils % (Auto) 4.5 % (0.0-4.3); Hematocrit 34.3 % (30.3-42.9); Hemoglobin 10.7 gm/dl (10.1-14.3); Lymphocytes # (Auto) 1.2 K/mm3 (1.2-5.4); Lymphocytes % (Auto) 34.8 % (13.4-35.0); Mean Corpuscular HGB Conc 31 % (30-34); Mean Corpuscular Volume 88 fl (79-97); Monocytes # (Auto) 0.4 K/mm3 (0.0-0.8); Monocytes % (Auto) 11.6 % (0.0-7.3); Platelet Count 128 K/mm3 (140-440); Red Blood Count 3.89 M/mm3 (3.65-5.03); Red Cell Distribution Width 17.7 % (13.2-15.2)
[2021-09-14] MEDS ORDERED: LORazepam 2 MG/ML VIAL IV ONE (07:45)
[2021-09-14] MEDS ORDERED: LORazepam 2 MG/ML VIAL ONE (07:46)
[2021-09-14 07:52] LABS: INR 1.05 (0.87-1.13); Partial Thromboplastin Time 29.7 Sec. (24.2-36.6)
[2021-09-14 07:53] LABS: Thrombin Time 22.2 Sec. (15.1-19.6)
[2021-09-14 07:54] LABS: Calcium 10.2 mg/dL (8.4-10.2)
[2021-09-14] MEDS ORDERED: SODIUM CHLORIDE 0.9% 100 ML IV PRN (10:00)
--- NOTE | 2021-09-14 10:26 | History and Physical Report ---
History of Present Illness Date of examination: 09/14/21 Date of admission: 09/14/21 08:41 Chief complaint: headache with blurred vision History of present illness: The patient is a 30-year-old female with h/o ESRD, DM, HTN present with a chief complaint of headache, right eye blureed vision and right-sided weakness. Patient states she went to sleep last night at 2230 in her usual state of health. Patient states she was awakened at 0100 from the pain from a headache. Patient noticed blurred vision from the right eye along with right-sided weakness and numbness. She went back to sleep but then she awakened again at 0500 with her symptoms still present. She decided to come to ER for further evaluation. 2 weeks ago she was admitted to [facility] with similar symptoms and she was told she has migraine headaches. 7 neurology was consulted on admission and recommended to admit the patient with stroke protocol. patient current has no weakness, but states her headache and blurred vision still persists. - Past Medical History Hx Hypertension: Yes Hx Diabetes: Yes (type 1 (insulin)) Hx Renal Disease: Yes (ESRD HD Q m/w/f) Hx Seizures: Yes Additional medical history: gastroparesis - Surgical History Hx Cholecystectomy: Yes Additional Surgical History: Cataract surgery-bilat. 2012. vas cath right chest wall. left upper arm fistula - Family History Family history: no significant - Social History Smoking Status: Never Smoker Substance Use Type: None (Denies illicit drug use) Review of System: Constitutional: no fever, no chills, no weight loss, + headache Ears, eyes, nose, mouth and throat: no nasal congestion, no nasal discharge, no sinus pressure, no vision change, no red eye. Neck: No neck pain or rigidity. Cardiovascular: No chest pain, no orthopnea, no palpitations, no leg swelling Respiratory: No shortness of breath, no cough, no congestion, no wheezing Gastrointestinal: no abdominal pain, no nausea, no vomiting Genitourinary : no dysuria, no hematuria Musculoskeletal: no joint swelling or muscle ache Integumentary: no rash, no pruritis Neurological: no parathesias, + right numbness, + right eye blindness, no tingling Endocrine: no cold or heat intolerance, no polyuria or polydipsia Hematologic/Lymphatic: no easy bruising, no easy bleeding, no gland swelling Allergic/Immunologic: no urticaria, no angioedema. Past History Past Medical History: diabetes, hypertension, renal failure Medications and Allergies Allergies Allergy/AdvReac Type Severity Reaction Status Date / Time shellfish derived Allergy Severe Angioedema Verified 12/11/18 09:58 metoclopramide [From Reglan] Allergy Intermediate Itching Verified 09/14/21 22:37 hydrocodone Allergy Unknown Verified 04/06/19 10:25 tramadol Allergy Unknown Verified 03/29/21 16:11 Home Medications Medication Instructions Recorded Confirmed Last Taken Type hydrALAZINE [Apresoline TAB] 50 mg PO BID 02/13/18 09/14/21 08/04/20 History Metoprolol Xl [Metoprolol 50 mg PO QDAY 11/04/18 09/14/21 09/13/21 10:00 History SUCCINATE ER TAB] Insulin NPH Human Isophane [address] [facility] 04/06/19 09/14/21 09/13/21 18:00 History [HumuLIN N] Insulin Regular, Human [HumuLIN R] See Protocol SQ [facility] 04/06/19 09/14/21 08/05/20 History Ondansetron [Zofran Odt] 4 mg PO Q8HR PRN #14 tab.rapdis 08/29/21 09/14/21 Unknown Rx oxyCODONE /ACETAMINOPHEN [Percocet 1 tab PO Q6HR PRN #10 tablet 08/29/21 09/14/21 Unknown Rx 5/325] Active Meds: Active Medications Sodium Chloride (Nacl 0.9%) 100 mls @ 999 mls/hr IV MEJIA PRN PRN Reason: Hypotension Exam - Physical Exam Narrative exam: GENERAL: well-developed and well-nourished AAF lying on bed appeared to be in no discomfort. HEENT: Normocephalic. Atraumatic. + right conjunctival congestion, no icterus. Patient has moist mucous membranes. NECK: Supple. Trachea midline. CHEST/LUNGS: Clear to auscultated bilaterally, breathing nonlabored. No wheezes crackles or rhonchi. HEART/CARDIOVASCULAR: Regular in rate and rhythm. S1 and S2 positive. ABDOMEN: Abdomen is soft, nontender. Patient has normal bowel sounds. SKIN: There is no rash. Warm and dry. NEURO: No focal motor deficit. Follows command. MUSCULOSKELETAL: No joint effusion or tenderness. EXTRIMITY: No edema, no cyanosis or clubbing. PSYCH: Cooperative. - Constitutional Vitals: Temp Pulse Resp BP Pulse Ox 97.8 F 94 H 16 151/88 96 09/14/21 07:36 09/14/21 09:30 09/14/21 09:30 09/14/21 09:30 09/14/21 09:30 Results - Labs CBC & Chem 7: 09/14/21 07:27 09/14/21 07:27 Labs: Abnormal lab results 09/14/21 09/14/21 09/14/21 Range/Units 07:27 07:27 07:27 WBC 3.4 L (4.5-11.0) K/mm3 MCH 27 L (28-32) pg RDW 17.7 H (13.2-15.2) % Plt Count 128 L (140-440) K/mm3 Slope % (Auto) 11.6 H (0.0-7.3) % Eos % (Auto) 4.5 H (0.0-4.3) % Baso % (Auto) 2.1 H (0.0-1.8) % Seg Neutrophils # 1.6 L (1.8-7.7) K/mm3 Thrombin Time 22.2 H (15.1-19.6) Sec. Chloride 97.7 L (98-107) mmol/L BUN 44 H (7-17) mg/dL Creatinine 9.6 H (0.6-1.2) mg/dL Glucose 119 H (65-100) mg/dL - Imaging and Cardiology CT Scan - head: report reviewed (no acute change) Assessment and Plan Possible acute CVA vs migraine headache -- We will admit the patient to remote telemetry - We'll place on aspirin and statin, will consult neurology - CT scan of the head obtained in the ER and shows no acute change - We will get MRI of the head, MRA head, 2-D echocardiogram - Allow permissive hypertension, will hold BP meds if patient is taking any at home - Consult PTOT and speech therapist - consistent carb diet, monitor blood glucose - Further management will be based on pending lab results and imaging studies DM on insulin - initiate home insulin regimen, SSI, Hypertension, uncontrolled -follow BP, hydralazine iv as needed if SBP >180 ESRD, On HD - renal consulted Dvt Px, on heparin. We'll place on GI prophylaxis to avoid stress ulcer
[2021-09-14] MEDS ORDERED: PROMETHAZINE 25 MG RECT SUPP PR PRN (13:07)
[2021-09-14] MEDS ORDERED: METOCLOPRAMIDE 10 MG TAB PO PRN (13:07)
[2021-09-14] MEDS ORDERED: DICYCLOMINE 10 MG CAP PO PRN (13:13)
--- NOTE | 2021-09-14 13:40 | Electrocardiograph Report ---
[facility] Test Date: 2021-09-14 Test Time: 07:54:46 Pat Name: LIZBETH VIZCAINO Department: Room: [facility] Gender: F [place]: [place] : 1990 Requested By: ELAINA GUILLEN Order Number: [id number] Reading MD: Rashmi Hong Measurements Intervals [place] Rate: 89 P: 25 NV: 143 QRS: 39 QRSD: 76 T: 65 QT: 363 QTc: 442 Interpretive Statements Sinus rhythm Compared to ECG 08/29/2021 14:22:43 No significant changes Electronically Signed On 09-14-2021 13:40:09 EST by Rashmi Hong
[2021-09-14] MEDS ORDERED: ACETAMINOPHEN 325 MG TAB PO PRN (14:00)
[2021-09-14] MEDS ORDERED: MAGNESIUM HYDROXIDE (MOM) ORAL LIQD UDC PO PRN (15:00)
[2021-09-14] MEDS ORDERED: ONDANSETRON 4 MG/2 ML INJ IV PRN (16:00)
[2021-09-14] MEDS ORDERED: ONDANSETRON 4 MG ODT TAB PO PRN (16:00)
[2021-09-14] MEDS: METOCLOPRAMIDE 10 MG TAB PO SCH ×2 (16:02→21:55)
[2021-09-14 16:07] LABS: Hepatitis C Virus Antibody Non-Reactive (NonReactive)
[2021-09-14 16:13] LABS: Hepatitis B Surface Antigen Non-Reactive (Negative)
[2021-09-14] MEDS: INSULIN REGULAR, HUMAN 100 UNITS/1 ML SUB-Q SCH ×2 (16:28→21:55)
[2021-09-14] MEDS ORDERED: METOCLOPRAMIDE 10 MG TAB PO SCH (16:30)
[2021-09-14] MEDS: oxyCODONE /ACETAMINOPHEN 5-325MG TAB PO PRN (16:35)
[2021-09-14] MEDS: DOCUSATE SODIUM 100 MG CAP PO SCH (21:53)
[2021-09-15] MEDS ORDERED: BUTALB/ACETAMINOPHEN/CAFFEINE TAB PO ONE (02:46)
[2021-09-15] MEDS ORDERED: DEXTROSE 50% IN WATER (25GM) 50 ML SYRINGE IV ONE ×2 (03:41→03:45)
[2021-09-15] MEDS: oxyCODONE /ACETAMINOPHEN 5-325MG TAB PO PRN (05:01)
[2021-09-15] MEDS: INSULIN REGULAR, HUMAN 100 UNITS/1 ML SUB-Q SCH ×3 (07:44→16:59)
[2021-09-15] MEDS ORDERED: hydrALAZINE 20 MG/1 ML INJ IV NR (08:11)
[2021-09-15 08:16] LABS: Chol/HDL Ratio 2.45 %
--- NOTE | 2021-09-15 09:09 | Consultation ---
History of Present Illness - Reason for Consult Consult date: 09/14/21 - History of Present Illness This note reflects encounter with patient on 09/14/21. Unable to place note secondary to issues with documentation system. Patient was seen in the ER for consultation. She has h/o ESRD, in the setting of HTN, DM, well known to our outpatient dialysis unit, presented to the ED secondary to headaches and complaints of right sided facial numbness. She is being worked up for possible TIA. Initial CT head was negative. She is due for HD today. Past History Past Medical History: diabetes, hypertension, renal failure Medications and Allergies Allergies Allergy/AdvReac Type Severity Reaction Status Date / Time shellfish derived Allergy Severe Angioedema Verified 12/11/18 09:58 metoclopramide [From Reglan] Allergy Intermediate Itching Verified 09/14/21 22:37 hydrocodone Allergy Unknown Verified 04/06/19 10:25 tramadol Allergy Unknown Verified 03/29/21 16:11 Home Medications Medication Instructions Recorded Confirmed Last Taken Type hydrALAZINE [Apresoline TAB] 50 mg PO BID 02/13/18 09/14/21 08/04/20 History Metoprolol Xl [Metoprolol 50 mg PO QDAY 11/04/18 09/14/21 09/13/21 10:00 History SUCCINATE ER TAB] Insulin NPH Human Isophane 10 unit SQ [facility] 04/06/19 09/14/21 09/13/21 18:00 History [HumuLIN N] Insulin Regular, Human [HumuLIN R] See Protocol SQ [facility] 04/06/19 09/14/21 08/05/20 History Ondansetron [Zofran Odt] 4 mg PO Q8HR PRN #14 tab.rapdis 08/29/21 09/14/21 Unknown Rx oxyCODONE /ACETAMINOPHEN [Percocet 1 tab PO Q6HR PRN #10 tablet 08/29/21 09/14/21 Unknown Rx 5/325] Active Meds: Active Medications Acetaminophen (Acetaminophen 325 Mg Tab) 650 mg PO Q4H PRN PRN Reason: Pain, Mild (1-3) Aspirin (Aspirin 325 Mg Tab) 325 mg PO QDAY JAKOB Atorvastatin Calcium (Atorvastatin 40 Mg Tab) 40 mg PO QHS JAKOB Last Admin: 09/14/21 21:53 Dose: 40 mg Documented by: Bisacodyl (Bisacodyl 10 Mg Rect Supp) 10 mg [place] QDAY PRN PRN Reason: Constipation Dicyclomine HCl (Dicyclomine 10 Mg Cap) 10 mg PO QID PRN PRN Reason: pain Docusate Sodium (Docusate Sodium 100 Mg Cap) 100 mg PO BID [facility] Last Admin: 09/14/21 21:53 Dose: 100 mg Documented by: Famotidine (Famotidine 20 Mg Tab) 20 mg PO QDAY [facility] Hydralazine HCl (Hydralazine 20 Mg/1 Ml Inj) 10 mg IV ONCE NR Stop: 09/15/21 09:30 Last Admin: 09/15/21 08:16 Dose: 10 mg Documented by: Hydralazine HCl (Hydralazine 25 Mg Tab) 50 mg PO Q8HR [facility] Sodium Chloride (Nacl 0.9%) 100 mls @ 999 mls/hr IV MEJIA PRN PRN Reason: Hypotension Insulin Human Regular (Insulin Regular, Human 100 Units/1 Ml) 10 units SUB-Q ACHS [facility] Last Admin: 09/15/21 07:44 Dose: Not Given Documented by: Magnesium Hydroxide (Magnesium Hydroxide (Mom) Oral Liqd Udc) 30 ml PO Q4H PRN PRN Reason: Constipation Metoprolol Succinate (Metoprolol Succinate Xl 50 Mg Tab) 50 mg PO QDAY [facility] Ondansetron HCl (Ondansetron 4 Mg/2 Ml Inj) 4 mg IV Q8H PRN PRN Reason: Nausea And Vomiting Ondansetron HCl (Ondansetron 4 Mg Odt Tab) 4 mg PO Q8HR PRN PRN Reason: Nausea And Vomiting Oxycodone/Acetaminophen (Oxycodone /Acetaminophen 5-325mg Tab) 1 tab PO Q6H PRN PRN Reason: Pain, Moderate (4-6) Last Admin: 09/15/21 05:01 Dose: 1 tab Documented by: Promethazine HCl (Promethazine 25 Mg Rect Supp) 25 mg [place] Q6H PRN PRN Reason: Nausea And Vomiting Last Admin: 09/15/21 05:04 Dose: 25 mg Documented by: Sodium Chloride (Sodium Chloride 0.9% 10 Ml Flush Syringe) 10 ml IV PRN PRN PRN Reason: LINE FLUSH Review of Systems Constitutional: fatigue, weakness Exam - Vital Signs Vital signs: Vital Signs Pulse Ox 100 09/14/21 07:24 - General Appearance General appearance: well-developed, appears stated age EENT: ATNC Neck: Present: neck supple Respiratory: Clear to Ascultation Heart: regular Gastrointestinal: Present: normal Integumentary: no rash Neurologic: upper extremity weakness Musculoskeletal: Present: deferred Psychiatric: cooperative Results - Lab Results 09/14/21 07:27 09/14/21 07:27 Most recent lab results Calcium 10.2 mg/dL (8.4-10.2) 09/14/21 07:27 Assessment and Plan - Patient Problems (1) Headache Current Visit: Yes Status: Acute Plan to address problem: migraine with aura complex versus possible TIA/CVA event. So far CT of the head is negative for any ischemic stroke at this time. Pending further MRI studies. Neurology recommendations greatly appreciated. Started on statin therapy as well as aspirin. (2) ESRD (end stage renal disease) Current Visit: Yes Status: Chronic Plan to address problem: orders placed for inpatient Sunday, Sunday, Sunday hemodialysis schedule. (3) Hypertensive chronic kidney disease with stage 5 chronic kidney disease or end stage renal disease Current Visit: No Status: Chronic Plan to address problem: monitor on current regimen. (4) Type 2 diabetes mellitus with diabetic chronic kidney disease Current Visit: Yes Status: Chronic Plan to address problem: management per primary attending. (5) Secondary hyperparathyroidism (of renal origin) Current Visit: Yes Status: Chronic Plan to address problem: continue home phosphorus binder regimen.
--- NOTE | 2021-09-15 09:09 | Discharge Summary ---
Providers - Providers Date of Admission: 09/14/21 08:41 Date of discharge: 09/15/21 Attending physician: ASHLY FUNG 09/14/21 07:56 Consult to Physician [CONS] Urgent Comment: Consulting Provider: AYAN AGUILAR Physician Instructions: Reason For Exam: ESRD 09/14/21 13:10 Consult to Case Management [CONS] Routine Services Needed at Discharge: Other Notified:: DEVELOPMENT OFFICER Consult to Dietitian/Nutrition [CONS] Routine Physician Instructions: Reason For Exam: Reason for Consult: Nutrition Recommendations Reason for Consult: Diet education Occupational Therapy Evaluate and Treat [CONS] Routine Comment: Reason For Exam: Neuro deficits Physical Therapy Evaluation and Treat [CONS] Routine Comment: Reason For Exam: Neuro deficits 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 neurology was consulted on admission and recommended to admit the patient with stroke protocol. Patient was admitted to the hospital with acute stroke protocol, tele-neurology was consulted in the ER. Patient was not found to be a candidate for TPA. Patient was placed on antiplatelets, statin and allowed for permissive hypertension. CT head in the ER did not show any acute abnormality. Patient was further evaluated with MRA head , MRI of the brain, 2D echo. MRI of the brain showed no acute CVA, 2D echo showed moderate pericardial effusion. Cardiology recommended medical Mx for pericardial effusion. Patient was recommended outpt f/u with neurology for her migraine. Disposition: 01 HOME / SELF CARE / HOMELESS Final Discharge Diagnosis (Prints w/discharge instructions): --Migraine headache with aura complex. --End-stage renal disease with hemodialysis. --Hypertension. --Diabetes mellitus type 2. --Secondary hyperparathyroidism. --Pericardial effusion, chronic Time spent for discharge: 34 minutes Core Measure Documentation - Palliative Care Palliative Care/ Comfort Measures: Not Applicable - Core Measures Any of the following diagnoses?: none Exam - Physical Exam Narrative exam: GENERAL: well-developed and well-nourished AAF lying on bed appeared to be in no discomfort. HEENT: Normocephalic. Atraumatic. no conjunctival congestion, no icterus. Patient has moist mucous membranes. NECK: Supple. Trachea midline. CHEST/LUNGS: Clear to auscultated bilaterally, breathing nonlabored. No wheezes crackles or rhonchi. HEART/CARDIOVASCULAR: Regular in rate and rhythm. S1 and S2 positive. ABDOMEN: Abdomen is soft, nontender. Patient has normal bowel sounds. SKIN: There is no rash. Warm and dry. NEURO: No focal motor deficit. Follows command. MUSCULOSKELETAL: No joint effusion or tenderness. EXTRIMITY: No edema, no cyanosis or clubbing. PSYCH: Cooperative. - Constitutional Vitals: Temp Pulse Resp BP Pulse Ox 97.5 F L 92 H 18 179/102 95 09/15/21 07:15 09/15/21 08:25 09/15/21 08:25 09/15/21 08:16 09/15/21 08:25 Plan Activity: advance as tolerated Weight Bearing Status: Weight Bear as Tolerated Diet: renal Follow up with: PRIMARY CAREMD [Primary Care Provider] - 7 Days MARISELA MCKEON MD [Staff Physician] - 7 Days Prescriptions: AtorvaSTATin [Lipitor] 40 mg PO QHS #30 tablet Aspirin EC [Halfprin EC] 81 mg PO QDAY #30 tablet.
[2021-09-15] MEDS: DOCUSATE SODIUM 100 MG CAP PO SCH (09:25)
[2021-09-15] MEDS: hydrALAZINE 25 MG TAB PO SCH ×2 (09:25→13:15)
[2021-09-15] MEDS ORDERED: METOPROLOL SUCCINATE XL 50 MG TAB PO SCH ×2 (10:00→14:21)
[2021-09-15] MEDS ORDERED: ASPIRIN 325 MG TAB PO SCH (10:00)
[2021-09-15] MEDS ORDERED: FAMOTIDINE 20 MG TAB PO SCH (10:00)
--- NOTE | 2021-09-15 13:36 | Magnetic Resonance Report ---
MR brain wo con, MR MRA/MRV head wo con INDICATION / CLINICAL INFORMATION: stroke. TECHNIQUE: Multiplanar, multisequence MRI of the brain. MRA of the head. 3-D/MIP reformats postprocessed. Percentage stenosis is determined by direct quantit ative measurements of distal internal carotid artery diameter compared with normal reference segments or by criteria similar to NASCET where applicable. COMPARISON: CT head September 14, 2021 FINDINGS: BRAIN: Intracranial: No restricted diffusion. No hemorrhage. Ventricular caliber is normal. No extra-axial c ollection. No mass. No herniation. Orbits: No significant abnormality of visualized orbits. Sinuses/mastoid: No significant abnormality of visualized sinuses and mastoid air cells. Additional findings: None. MRA HEAD: Intracranial vertebral arteries: No occlusion or significant stenosis. Basilar artery: No occlusion or significant stenosis. Posterior cerebral arteries: No occlusion or significant stenosis. Intracranial internal carotid arteries: No occlusion or significant stenosis. Anterior cerebral arteries: No occlusion or significant stenosis. Middle cerebral arteries: No occlusion or significant stenosis. No aneurysm. Additional findings: None. IMPRESSION: 1. MRI Brain: No acute intracranial abnormality. 2. MRA Head: No occlusion or hemodynamically significant stenosis. Signer Name: Spenser Azar MD Signed: 09/15/2021 1:32 PM Workstation Name: [id number]
--- NOTE | 2021-09-15 14:01 | Consultation ---
History of Present Illness Consult date: 09/15/21 Consult reason: other (Pericardial effusion) History of present illness: The patient is a 30-year-old woman with chronic hypertension, and end-stage renal disease on hemodialysis. She is on 3 times weekly hemodialysis. She presented to the hospital at this time with hypertension and transient right- sided weakness, and is undergoing further neurological evaluation for possible TIA or atypical migraine. There was no chest pain, no shortness of breath, no palpitations, no cardiac complaints. An echocardiogram done for her TIA assessment showed a moderate severity circumferential pericardial effusion. There were no echocardiographic signs of cardiac tamponade. There was normal left ventricular systolic function with ejection fraction 60%. There were no significant valvular abnormalities. As reported above, patient has no chest pain, no shortness of breath, no edema. Further assessment shows that she has a history of chronic pericardial effusion, for which she sees Dr. Soto as her primary outpatient clinical manager home care. She states that she undergoes routine follow-up with serial echocardiograms. EKG on this presentation is normal sinus rhythm, essentially normal ECG. Past History Past Medical History: diabetes, hypertension, renal failure, other (Pericardial effusion) Medications and Allergies Allergies Allergy/AdvReac Type Severity Reaction Status Date / Time shellfish derived Allergy Severe Angioedema Verified 12/11/18 09:58 metoclopramide [From Reglan] Allergy Intermediate Itching Verified 09/14/21 22:3 7 hydrocodone Allergy Unknown Verified 04/06/19 10:25 tramadol Allergy Unknown Verified 03/29/21 16:11 Home Medications Medication Instructions Recorded Confirmed Last Taken Type hydrALAZINE [Apresoline TAB] 50 mg PO BID 02/13/18 09/14/21 08/04/20 History Metoprolol Xl [Metoprolol 50 mg PO QDAY 11/04/18 09/14/21 09/13/21 10:00 History SUCCINATE ER TAB] Insulin NPH Human Isophane 10 unit SQ ACHS 04/06/19 09/14/21 09/13/21 18:00 History [HumuLIN N] Insulin Regular, Human [HumuLIN R] See Protocol [facility] 04/06/19 09/14/21 08/05/20 History Ondansetron [Zofran Odt] 4 mg PO Q8HR PRN #14 tab.rapdis 08/29/21 09/14/21 Unknown Rx oxyCODONE /ACETAMINOPHEN [Percocet 1 tab PO Q6HR PRN #10 tablet 08/29/21 09/14/21 Unknown Rx 5/325] Active Meds: Active Medications Acetaminophen (Acetaminophen 325 Mg Tab) 650 mg PO Q4H PRN PRN Reason: Pain, Mild (1-3) Aspirin (Aspirin 325 Mg Tab) 325 mg PO QDAY [facility] Last Admin: 09/15/21 09:25 Dose: 325 mg Documented by: Atorvastatin Calcium (Atorvastatin 40 Mg Tab) 40 mg PO QHS [facility] Last Admin: 09/14/21 21:53 Dose: 40 mg Documented by: Bisacodyl (Bisacodyl 10 Mg Rect Supp) 10 mg WA QDAY PRN PRN Reason: Constipation Dicyclomine HCl (Dicyclomine 10 Mg Cap) 10 mg PO QID PRN PRN Reason: pain Docusate Sodium (Docusate Sodium 100 Mg Cap) 100 mg PO BID [facility] Last Admin: 09/15/21 09:25 Dose: Not Given Documented by: Famotidine (Famotidine 20 Mg Tab) 20 mg PO QDAY [facility] Last Admin: 09/15/21 09:25 Dose: 20 mg Documented by: Hydralazine HCl (Hydralazine 25 Mg Tab) 50 mg PO Q8HR [facility] Last Admin: 09/15/21 13:15 Dose: 50 mg Documented by: Sodium Chloride (Nacl 0.9%) 100 mls @ 999 mls/hr IV MEJIA PRN PRN Reason: Hypotension Insulin Human Regular (Insulin Regular, Human 100 Units/1 Ml) 10 units SUB-Q ACHS [facility] Last Admin: 09/15/21 13:05 Dose: Not Given Documented by: Magnesium Hydroxide (Magnesium Hydroxide (Mom) Oral Liqd Udc) 30 ml PO Q4H PRN PRN Reason: Constipation Metoprolol Succinate (Metoprolol Succinate Xl 50 Mg Tab) 50 mg PO QDAY [facility] Last Admin: 09/15/21 09:23 Dose: 50 mg Documented by: Ondansetron HCl (Ondansetron 4 Mg/2 Ml Inj) 4 mg IV Q8H PRN PRN Reason: Nausea And Vomiting Ondansetron HCl (Ondansetron 4 Mg Odt Tab) 4 mg PO Q8HR PRN PRN Reason: Nausea And Vomiting Oxycodone/Acetaminophen (Oxycodone /Acetaminophen 5-325mg Tab) 1 tab PO Q6H PRN PRN Reason: Pain, Moderate (4-6) Last Admin: 09/15/21 05:01 Dose: 1 tab Documented by: Promethazine HCl (Promethazine 25 Mg Rect Supp) 25 mg WA Q6H PRN PRN Reason: Nausea And Vomiting Last Admin: 09/15/21 05:04 Dose: 25 mg Documented by: Sodium Chloride (Sodium Chloride 0.9% 10 Ml Flush Syringe) 10 ml IV PRN PRN PRN Reason: LINE FLUSH Review of Systems Cardiovascular: no chest pain, no orthopnea, no palpitations, no rapid/irregular heart beat, no edema, no syncope, no lightheadedness, no shortness of breath Physical Examination Vital Signs Pulse Ox 100 09/14/21 07:24 General appearance: no acute distress HEENT: Positive: PERRL Neck: Positive: neck supple Cardiac: Positive: Reg Rate and Rhythm Lungs: Positive: clear to auscultation Neuro: Positive: Grossly Intact Abdomen: Positive: Soft Skin: Positive: Clear Extremities: Absent: edema Results 09/14/21 07:27 09/14/21 07:27 Lipids 09/15/21 Range/Units 04:48 Triglycerides 43 (2-149) mg/dL Cholesterol 135 (50-199) mg/dL HDL Cholesterol 55 (40-59) mg/dL Cholesterol/HDL Ratio 2.45 % EKG interpretations - Telemetry EKG Rhythm: Sinus Rhythm Assessment and Plan - Patient Problems (1) Pericardial effusion Current Visit: Yes Status: Acute Plan to address problem: 30-year-old woman with end-stage renal disease on hemodialysis, who presents with incidental finding of a chronic asymptomatic, moderate severity pericardial effusion. We will continue management with aggressive hemodialysis, and continued follow-up, patient is recommended to follow-up with Dr. Soto her primary clinical manager home care in 1 to 2 weeks post discharge.
--- NOTE | 2021-09-15 14:10 | Progress Note ---
Assessment and Plan - Patient Problems (1) Headache Current Visit: Yes Status: Acute Plan to address problem: migraine with aura complex versus possible TIA/CVA event. So far CT of the head is negative for any ischemic stroke at this time. MRI of the brain also did not show any acute intracranial abnormalities. Neurology recommendations greatly ap preciated. Started on statin therapy. (2) ESRD (end stage renal disease) Current Visit: Yes Status: Chronic Plan to address problem: orders placed for inpatient Sunday, Sunday, Sunday hemodialysis schedule. (3) Hypertensive chronic kidney disease with stage 5 chronic kidney disease or end stage renal disease Current Visit: No Status: Chronic Plan to address problem: monitor on current regimen. (4) Type 2 diabetes mellitus with diabetic chronic kidney disease Current Visit: Yes Status: Chronic Plan to address problem: management per primary attending. (5) Secondary hyperparathyroidism (of renal origin) Current Visit: Yes Status: Chronic Plan to address problem: continue home phosphorus binder regimen. Subjective Date of service: 09/15/21 Interval history: Patient participating in physical therapy this afternoon. Noted to be walking down the blanc without any acute issues or difficulties. Had echocardiogram which was concerning for moderate sized pericardial effusion but this has seemed to be chronic in nature. Not complaining of any chest pain or shortness of breath and per cardiology there was no evidence or signs of cardiac tamponade on echocardiogram. Patient did have dialysis yesterday without any acute issues. Plan for next dialysis treatment tomorrow to maintain on her Sunday/ Sunday/ Sunday hemodialysis schedule. Patient had further MRI brain imaging done which did not show any acute abnormalities. Objective - Vital Signs Vital signs: Vital Signs - 12hr 09/15/21 09/15/21 09/15/21 02:55 03:44 07:15 Temperature 98.9 F 97.5 F L Pulse Rate 83 92 H Pulse Rate [ From Monitor] Respiratory 16 16 Rate Blood Pressure 166/91 187/99 179/102 O2 Sat by Pulse 97 97 Oximetry 09/15/21 09/15/21 09/15/21 08:16 08:25 09:23 Temperature Pulse Rate 92 H 95 H Pulse Rate [ 92 H From Monitor] Respiratory 18 Rate Blood Pressure 179/102 136/73 O2 Sat by Pulse 95 Oximetry 09/15/21 12:56 Temperature 97.0 F L Pulse Rate 89 Pulse Rate [ From Monitor] Respiratory 20 Rate Blood Pressure 175/100 O2 Sat by Pulse 99 Oximetry - General Appearance General appearance: well-developed, appears stated age EENT: ATNC Neck: no JVD Respiratory: Present: Clear to Ascultation Cardiology: regular Gastrointestinal: normal Integumentary: no rash Neurologic: no focal deficit, alert and oriented x3 Musculoskeletal: deferred Psychiatric: cooperative - Lab 09/14/21 07:27 09/14/21 07:27 Most recent lab results Calcium 10.2 mg/dL (8.4-10.2) 09/14/21 07:27 - Allied health notes Allied health notes reviewed: nursing Medications & Allergies - Medications Allergies/Adverse Reactions: Allergies shellfish derived Allergy (Severe, Verified 12/11/18 09:58) Angioedema metoclopramide [From Reglan] Allergy (Intermediate, Verified 09/14/21 22:37) Itching "Hot, itchy, chest heaviness" hydrocodone Allergy (Verified 04/06/19 10:25) Unknown tramadol Allergy (Verified 03/29/21 16:11) Unknown Home Medications: Home Medications Medication Instructions Recorded Confirmed Last Taken Type hydrALAZINE [Apresoline TAB] 50 mg PO BID 02/13/18 09/14/21 08/04/20 History Metoprolol Xl [Metoprolol 50 mg PO QDAY 11/04/18 09/14/21 09/13/21 10:00 History SUCCINATE ER TAB] Insulin NPH Human Isophane 10 unit SQ [facility] 04/06/19 09/14/21 09/13/21 18:00 History [HumuLIN N] Insulin Regular, Human [HumuLIN R] See Protocol SQ [facility] 04/06/19 09/14/21 08/05/20 History Ondansetron [Zofran Odt] 4 mg PO Q8HR PRN #14 tab.rapdis 08/29/21 09/14/21 Unknown Rx oxyCODONE /ACETAMINOPHEN [Percocet 1 tab PO Q6HR PRN #10 tablet 08/29/21 09/14/21 Unknown Rx 5/325] Active Medications: Generic Name Dose Route Start Last Admin Trade Name Freq PRN Reason Stop Dose Admin Acetaminophen 650 mg 09/14/21 14:00 Acetaminophen 325 Mg Tab PO Q4H PRN Pain, Mild (1-3) Aspirin 325 mg 09/15/21 10:00 09/15/21 09:25 Aspirin 325 Mg Tab PO 325 mg QDAY JAKOB Administration Atorvastatin Calcium 40 mg 09/14/21 22:00 09/14/21 21:53 Atorvastatin 40 Mg Tab PO 40 mg QHS JAKOB Administration Bisacodyl 10 mg 09/14/21 15:00 Bisacodyl 10 Mg Rect Supp NE QDAY PRN Constipation Dicyclomine HCl 10 mg 09/14/21 13:13 Dicyclomine 10 Mg Cap PO QID PRN pain Docusate Sodium 100 mg 09/14/21 22:00 09/15/21 09:25 Docusate Sodium 100 Mg Cap PO Not Given BID JAKOB Famotidine 20 mg 09/15/21 10:00 09/15/21 09:25 Famotidine 20 Mg Tab PO 20 mg QDAY JAKOB Administration Hydralazine HCl 50 mg 09/15/21 09:00 09/15/21 13:15 Hydralazine 25 Mg Tab PO 50 mg Q8HR JAKOB Administration Sodium Chloride 100 mls @ 999 mls/hr 09/14/21 10:00 Nacl 0.9% IV MEJIA PRN Hypotension Insulin Human Regular 10 units 09/14/21 16:30 09/15/21 13:05 Insulin Regular, Human 100 Units/1 Ml SUB-Q Not Given ACHS [facility] Magnesium Hydroxide 30 ml 09/14/21 15:00 Magnesium Hydroxide (Mom) Oral Liqd Udc PO Q4H PRN Constipation Metoprolol Succinate 50 mg 09/15/21 10:00 09/15/21 09:23 Metoprolol Succinate Xl 50 Mg Tab PO 50 mg QDAY [facility] Administration Ondansetron HCl 4 mg 09/14/21 16:00 Ondansetron 4 Mg/2 Ml Inj IV Q8H PRN Nausea And Vomiting Ondansetron HCl 4 mg 09/14/21 16:00 Ondansetron 4 Mg Odt Tab PO Q8HR PRN Nausea And Vomiting Oxycodone/Acetaminophen 1 tab 09/14/21 13:07 09/15/21 05:01 Oxycodone /Acetaminophen 5-325mg Tab PO 1 tab Q6H PRN Administration Pain, Moderate (4-6) Promethazine HCl 25 mg 09/14/21 13:07 09/15/21 05:04 Promethazine 25 Mg Rect Supp NE 25 mg Q6H PRN Administration Nausea And Vomiting Sodium Chloride 10 ml 09/14/21 13:07 Sodium Chloride 0.9% 10 Ml Flush Syringe IV PRN PRN LINE FLUSH
[2021-09-15 15:57] VITALS: BP 139/81
== END 2021-09-15 17:42 | disposition home or self-care (01) | DRG 102 ==
LOC: ED 06:46 → 4A 08:41
PROVIDERS: ADMIT Internal Medicine; ATTEND Internal Medicine
PROC: 5A1D70Z Performance of Urinary Filtration, Intermittent, Less than 6 Hours Per Day (ICD-10-PCS; principal; 2021-09-14)
DX: G43.109 Migraine with aura, not intractable, without status migrainosus (principal); N18.6 End stage renal disease; I12.0 Hypertensive chronic kidney disease with stage 5 chronic kidney disease or end stage renal disease; E11.22 Type 2 diabetes mellitus with diabetic chronic kidney disease; N25.81 Secondary hyperparathyroidism of renal origin; I31.3 Pericardial effusion (noninflammatory); Z99.2 Dependence on renal dialysis; Z88.8 Allergy status to other drugs, medicaments and biological substances; Z88.5 Allergy status to narcotic agent; Z91.013 Allergy to seafood; Z98.42 Cataract extraction status, left eye; Z98.41 Cataract extraction status, right eye; Z79.4 Long term (current) use of insulin
CPT/HCPCS: 36415; 70450; 70544; 70551; 80048; 80061; 80074; 82962; 84703; 85025; 85610; 85670; 85730; 93005; 93306; G0378; J0360; J1200; J1815; J2060; J2765

== ENCOUNTER 2021-10-18 14:58 | Emergency (ER) | payer MEDICAID ==
[2021-10-18] MEDS ORDERED: ONDANSETRON 4 MG/2 ML INJ IV ONE (16:14)
[2021-10-18] MEDS ORDERED: hydrALAZINE 20 MG/1 ML INJ IV ONE (16:15)
[2021-10-18 16:50] LABS: Hematocrit 38.4 % (30.3-42.9); Hemoglobin 11.5 gm/dl (10.1-14.3); Mean Corpuscular HGB Conc 30 % (30-34); Mean Corpuscular Volume 95 fl (79-97); Platelet Count 146 K/mm3 (140-440); Red Blood Count 4.05 M/mm3 (3.65-5.03); Red Cell Distribution Width 20.7 % (13.2-15.2)
[2021-10-18 17:04] LABS: Albumin 4.8 g/dL (3.9-5); Calcium 10.7 mg/dL (8.4-10.2)
--- NOTE | 2021-10-18 17:28 | XRay Report ---
CHEST 2 VIEWS INDICATION: cough. COMPARISON: 08/29/2021 FINDINGS: Support devices: None. Heart: Stable moderate cardiomegaly Lungs/pleura: No acute air space or interstitial disease. No pleural effusion or pneumothorax. Additional findings: None. IMPRESSION: Moderate cardiomegaly. Lungs clear. No significant change since 08/29/2021. Signer Name: Dewayne Whittaker Jr, MD Signed: 10/18/2021 5:24 PM Workstation Name: [email or web address]
[2021-10-18 17:36] LABS: Total Cells Counted 100
[2021-10-18 17:37] LABS: Anisocytosis 1+; Ovalocytes Few; Poikilocytosis 1+; Target Cells Few; Tear Drop Cells Few
[2021-10-18 17:38] LABS: Platelet Estimate Consistent w Auto
[2021-10-18] MEDS ORDERED: oxyCODONE /ACETAMINOPHEN 5-325MG TAB PO ONE (18:12)
--- NOTE | 2021-10-18 18:20 | Emergency Department Report ---
ED General Adult HPI - General Chief complaint: Upper Respiratory Infection Stated complaint: N/V/RODRIGUEZ Time Seen by Provider: 10/18/21 15:44 Source: EMS Mode of arrival: Ambulatory Limitations: No Limitations - History of Present Illness Initial comments: Patient is a 31-year-old female presents emergency room with complaints of nausea and vomiting that began 3 days ago. She has associated generalized body aches, chills, dry cough. She denies any productive cough. She denies any fever, diarrhea, shortness of breath, chest pain. She states she has some abdominal cramping. She denies any known sick contacts or recent travel. She has not been vaccinated for COVID-19. Past medical history of end-stage renal disease on dialysis. She states that she last went to dialysis yesterday. - Related Data Home Medications Medication Instructions Recorded Confirmed Last Taken hydrALAZINE [Apresoline TAB] 50 mg PO BID 02/13/18 09/14/21 08/04/20 Metoprolol Xl [Metoprolol 50 mg PO QDAY 11/04/18 09/14/21 09/13/21 10:00 SUCCINATE ER TAB] Insulin NPH Human Isophane 10 unit SQ [facility] 04/06/19 09/14/21 09/13/21 18:00 [HumuLIN N] Insulin Regular, Human [HumuLIN R] See Protocol SQ [facility] 04/06/19 09/14/21 1 Previous Rx's Medication Instructions Recorded Last Taken Type Ondansetron [Zofran ODT TAB] 4 mg PO Q8HR PRN #14 tab.rapdis 08/29/21 Unknown Rx oxyCODONE /ACETAMINOPHEN [Percocet 1 tab PO Q6HR PRN #10 tablet 08/29/21 Unknown Rx 5/325 mg] Aspirin EC [Halfprin EC] 81 mg PO QDAY #30 tablet. 09/15/21 Unknown Rx AtorvaSTATin [Lipitor] 40 mg PO QHS #30 tablet 09/15/21 Unknown Rx Acetaminophen/Codeine [Tylenol 1 tab PO Q6H PRN #10 tab 10/18/21 Unknown Rx /Codeine # 3 tab] Benzonatate [Tessalon Perles] 100 mg PO Q8HR PRN #10 capsule 10/18/21 Unknown Rx Ondansetron [Zofran Odt] 4 mg PO Q8HR PRN #12 tab.rapdis 10/18/21 Unknown Rx Promethazine [Phenergan] 25 mg [place] Q6HR PRN #8 supp.rect 10/18/21 Unknown Rx Allergies Allergy/AdvReac Type Severity Reaction Status Date / Time shellfish derived Allergy Severe Angioedema Verified 12/11/18 09:58 metoclopramide [From Reglan] Allergy Intermediate Itching Verified 09/14/21 22:37 hydrocodone Allergy Unknown Verified 04/06/19 10:25 tramadol Allergy Unknown Verified 03/29/21 16:11 ED Review of Systems ROS: Stated complaint: N/V/RODRIGUEZ Other details as noted in HPI Comment: All other systems reviewed and negative ED Past Medical Hx - Past Medical History Hx Hypertension: Yes Hx Congestive Heart Failure: No Hx Diabetes: Yes (type 1 (insulin)) Hx Deep Vein Thrombosis: No Hx Renal Disease: Yes (ESRD HD Q m/w/f) Hx Seizures: Yes Hx Asthma: No Hx COPD: No Hx HIV: No Additional medical history: gastroparesis - Surgical History Hx Pacemaker: No Hx Internal Defibrillator: No Hx Cholecystectomy: Yes Additional Surgical History: Cataract surgery-bilat. 2012. vas cath right chest wall. left upper arm fistula - Social History Smoking Status: Never Smoker - Medications Home Medications: Home Medications Medication Instructions Recorded Confirmed Last Taken Type hydrALAZINE [Apresoline TAB] 50 mg PO BID 02/13/18 09/14/21 08/04/20 History Metoprolol Xl [Metoprolol 50 mg PO QDAY 11/04/18 09/14/21 09/13/21 10:00 History SUCCINATE ER TAB] Insulin NPH Human Isophane 10 unit SQ [facility] 04/06/19 09/14/21 09/13/21 18:00 History [HumuLIN N] Insulin Regular, Human [HumuLIN R] See Protocol SQ [facility] 04/06/19 09/14/21 08/05/20 History Ondansetron [Zofran ODT TAB] 4 mg PO Q8HR PRN #14 tab.rapdis 08/29/21 09/14/21 Unknown Rx oxyCODONE /ACETAMINOPHEN [Percocet 1 tab PO Q6HR PRN #10 tablet 08/29/21 09/14/21 Unknown Rx 5/325 mg] Aspirin EC [Halfprin EC] 81 mg PO QDAY #30 tablet.dr 09/15/21 Unknown Rx AtorvaSTATin [Lipitor] 40 mg PO QHS #30 tablet 09/15/21 Unknown Rx Acetaminophen/Codeine [Tylenol 1 tab PO Q6H PRN #10 tab 10/18/21 Unknown Rx /Codeine # 3 tab] Benzonatate [Tessalon Perles] 100 mg PO Q8HR PRN #10 capsule 10/18/21 Unknown Rx Ondansetron [Zofran Odt] 4 mg PO Q8HR PRN #12 tab.rapdis 10/18/21 Unknown Rx Promethazine [Phenergan] 25 mg [place] Q6HR PRN #8 supp.rect 10/18/21 Unknown Rx ED Physical Exam - General Limitations: No Limitations General appearance: alert, in no apparent distress - Head Head exam: Present: atraumatic, normocephalic - Eye Eye exam: Present: normal appearance - ENT ENT exam: Present: mucous membranes moist - Respiratory Respiratory exam: Present: normal lung sounds bilaterally. Absent: respiratory distress, wheezes, rales, rhonchi, stridor, chest wall tenderness, accessory muscle use, decreased breath sounds, prolonged expiratory - Cardiovascular Cardiovascular Exam: Present: regular rate, normal rhythm, normal heart sounds. Absent: systolic murmur, diastolic murmur, rubs, gallop - GI/Abdominal GI/Abdominal exam: Present: soft, normal bowel sounds. Absent: distended, tenderness, guarding, rebound, rigid - Neurological Exam Neurological exam: Present: alert, oriented X3 - Psychiatric Psychiatric exam: Present: normal affect, normal mood - Skin Skin exam: Present: warm, dry, intact ED Course Vital Signs 10/18/21 10/18/21 10/18/21 15:01 17:05 18:31 Temperature 98.9 F 99.6 F Pulse Rate 111 H 112 H 112 H Respiratory 16 18 Rate Blood Pressure 200/120 Blood Pressure 202/119 181/93 [Right] O2 Sat by Pulse 99 95 Oximetry 10/18/21 19:59 Temperature 99.6 F Pulse Rate 104 H Respiratory 14 Rate Blood Pressure Blood Pressure 154/83 [Right] O2 Sat by Pulse 96 Oximetry ED Medical Decision Making - Lab Data Result diagrams: 10/18/21 16:20 10/18/21 16:20 Lab Results 10/18/21 10/18/21 10/18/21 Range/Units 16:20 16:20 16:20 WBC 2.6 L (4.5-11.0) K/mm3 RBC 4.05 (3.65-5.03) M/mm3 Hgb 11.5 (10.1-14.3) gm/dl Hct 38.4 (30.3-42.9) % MCV 95 (79-97) fl MCH 29 (28-32) pg MCHC 30 (30-34) % RDW 20.7 H (13.2-15.2) % Plt Count 146 (140-440) K/mm3 Gillespie % (Auto) [employer]ellite [employer] Operator Add Manual Diff Complete Total Counted 100 Seg Neuts % (Manual) 78.0 H (40.0-70.0) % Lymphocytes % (Manual) 8.0 L (13.4-35.0) % Monocytes % (Manual) 11.0 H (0.0-7.3) % Eosinophils % (Manual) 3.0 (0.0-4.3) % Nucleated RBC % Not Reportable Seg Neutrophils # Man 2.0 (1.8-7.7) K/mm3 Band Neutrophils # 0.0 K/mm3 Lymphocytes # (Manual) 0.2 L (1.2-5.4) K/mm3 Abs React Lymphs (Man) 0.0 K/mm3 Monocytes # (Manual) 0.3 (0.0-0.8) K/mm3 Eosinophils # (Manual) 0.1 (0.0-0.4) K/mm3 Basophils # (Manual) 0.0 (0.0-0.1) K/mm3 Metamyelocytes # 0.0 K/mm3 Myelocytes # 0.0 K/mm3 Promyelocytes # 0.0 K/mm3 Blast Cells # 0.0 K/mm3 WBC Morphology Not Reportable Hypersegmented Neuts Not Reportable Hyposegmented Neuts Not Reportable Hypogranular Neuts Not Reportable Smudge Cells Not Reportable Toxic Granulation Not Reportable Toxic Vacuolation Not Reportable Dohle Bodies Not Reportable Pelger-Huet Anomaly Not Reportable Sheldon Rods Not Reportable Platelet Estimate Consistent w auto Clumped Platelets Not Reportable Plt Clumps, EDTA Not Reportable Large Platelets Not Reportable Giant Platelets Not Reportable Platelet Satelliting Not Reportable Plt Morphology Comment Not Reportable RBC Morphology Not Reportable Dimorphic RBCs Not Reportable Polychromasia Not Reportable Hypochromasia Not Reportable Poikilocytosis 1+ Anisocytosis 1+ Microcytosis Not Reportable Macrocytosis Not Reportable Spherocytes Not Reportable Pappenheimer Bodies Not Reportable Sickle Cells Not Reportable Target Cells Few Tear Drop Cells Few Ovalocytes Few Helmet Cells Not Reportable [place] Bodies Not Reportable [place] Rings Not Reportable [place] Cells Not Reportable Bite Cells Not Reportable Crenated Cell Not Reportable Elliptocytes Few Acanthocytes (Spur) Not Reportable Rouleaux Not Reportable Hemoglobin C Crystals Not Reportable Schistocytes Not Reportable Malaria parasites Not Reportable Daniel Bodies Not Reportable Hem Pathologist Commnt No Sodium 144 (137-145) mmol/L Potassium 5.0 (3.6-5.0) mmol/L Chloride 100.9 (98-107) mmol/L Carbon Dioxide 25 (22-30) mmol/L Anion Gap 23 mmol/L BUN 35 H (7-17) mg/dL Creatinine 8.3 H (0.6-1.2) mg/dL Estimated GFR 7 ml/min BUN/Creatinine Ratio 4 % Glucose 126 H (65-100) mg/dL Calcium 10.7 H (8.4-10.2) mg/dL Total Bilirubin 0.50 (0.1-1.2) mg/dL AST 11 (5-40) units/L ALT 14 (7-56) units/L Alkaline Phosphatase 92 (35-129) units/L Total Protein 7.5 (6.3-8.2) g/dL Albumin 4.8 (3.9-5) g/dL Albumin/Globulin Ratio 1.8 % Lipase 16 (13-60) units/L HCG, Qual Negative (Negative) Vital Signs 10/18/21 10/18/21 10/18/21 15:01 17:05 18:31 Temperature 98.9 F 99.6 F Pulse Rate 111 H 112 H 112 H Respiratory 16 18 Rate Blood Pressure 200/120 Blood Pressure 202/119 181/93 [Right] O2 Sat by Pulse 99 95 Oximetry 10/18/21 19:59 Temperature 99.6 F Pulse Rate 104 H Respiratory 14 Rate Blood Pressure Blood Pressure 154/83 [Right] O2 Sat by Pulse 96 Oximetry - Radiology Data Radiology results: report reviewed Ordering Physician: JENNIFER SETHI Date of Service: 10/18/21 Procedure(s): XR chest routine 2V Accession Number(s): [id number] cc: JENNIFER SETHI Fluoro Time In Minutes: CHEST 2 VIEWS INDICATION: cough. COMPARISON: 08/29/2021 FINDINGS: Support devices: None. Heart: Stable moderate cardiomegaly Lungs/pleura: No acute air space or interstitial disease. No pleural effusion or pneumothorax. Additional findings: None. IMPRESSION: Moderate cardiomegaly. Lungs clear. No significant change since 08/29/2021. Signer Name: Dewayne Whittaker Jr, MD Signed: 10/18/2021 5:24 PM Workstation Name: [id number] Transcribed By: EZRA Dictated By: DEWAYNE WHITTAKER JR, MD Electronically Authenticated By: DEWAYNE WHITTAKER JR, MD Signed Date/Time: 10/18/211723 DD/ 22 TD/TT: - Medical Decision Making Patient is a 31-year-old female presents emergency room with complaints of nausea and vomiting that began 3 days ago. She has associated generalized body aches, chills, dry cough. She denies any productive cough. She denies any fever, diarrhea, shortness of breath, chest pain. She states she has some abdominal cramping. She denies any known sick contacts or recent travel. She has not been vaccinated for COVID-19. Past medical history of end-stage renal disease on dialysis. She states that she last went to dialysis yesterday. Initial vitals with tachycardia and elevated blood pressure. No abdominal tenderness on exam. Breath sounds are clear bilaterally. Labs are stable. Chest x-ray no acute process. Patient given hydralazine but blood pressure and heart rate remained elevated. Discussed case with Dr. Gama, ER attending who advised to give patient labetalol, 250 mL of IV fluids. Patient given medications and blood pressure and heart rate improved. Patient was feeling better and ready to go home. Advised patient Please take medication as prescribed as needed. Increase your fluid intake over the next several days. Follow-up with your primary care doctor. Return to emergency room for any new or worsening symptoms. Please take your blood pressure medication as prescribed by your primary care doctor. Only use Phenergan suppositories if Zofran is not working, do not take the medications together. Critical care attestation.: If time is entered above; I have spent that time in minutes in the direct care of this critically ill patient, excluding procedure time. ED Disposition Clinical Impression: ESRD (end stage renal disease), Elevated blood pressure reading Nausea & vomiting Qualifiers: Vomiting type: unspecified Qualified Code(s): R11.2 - Nausea with vomiting, unspecified Upper respiratory infection Qualifiers: URI type: unspecified URI Qualified Code(s): J06.9 - Acute upper respiratory infection, unspecified Disposition: 01 HOME / SELF CARE / HOMELESS Is pt being admited?: No Does the pt Need Aspirin: No Condition: Stable Additional Instructions: Please take medication as prescribed as needed. Increase your fluid intake over the next several days. Follow-up with your primary care doctor. Return to emergency room for any new or worsening symptoms. Please take your blood pressure medication as prescribed by your primary care doctor. Only use Phenergan suppositories if Zofran is not working, do not take the medications together. Prescriptions: Promethazine [Phenergan] 25 mg WI Q6HR PRN #8 supp.rect PRN Reason: nausea/vomiting Benzonatate [Tessalon Perles] 100 mg PO Q8HR PRN #10 capsule PRN Reason: cough Acetaminophen/Codeine [Tylenol /Codeine # 3 tab] 1 tab PO Q6H PRN #10 tab PRN Reason: severe pain Ondansetron [Zofran Odt] 4 mg PO Q8HR PRN #12 tab.rapdis PRN Reason: nausea/vomiting Referrals: PRIMARY CARE,MD [Primary Care Provider] - 2-3 Days Time of Disposition: 18:18 Print Language: LAO
[2021-10-18] MEDS ORDERED: MORPHINE 4 MG/1 ML INJ IM ONE (18:34)
[2021-10-18] MEDS ORDERED: SODIUM CHLORIDE 0.9% 250ML 250 ML IV ONE (18:35)
[2021-10-18 20:00] VITALS: BP 154/83
== END 2021-10-18 20:09 | disposition home or self-care (01) ==
LOC: ED 14:58
DX: N18.6 End stage renal disease (principal); R11.2 Nausea with vomiting, unspecified; J06.9 Acute upper respiratory infection, unspecified; I10 Essential (primary) hypertension; E11.8 Type 2 diabetes mellitus with unspecified complications; Z91.013 Allergy to seafood; Z88.8 Allergy status to other drugs, medicaments and biological substances; Z88.5 Allergy status to narcotic agent
CPT/HCPCS: 36415; 71046; 80053; 83690; 84703; 85007; 85025; 96372; 96374; 96375; 99284; J0360; J2270; J2405; J3490; J7050

== ENCOUNTER 2022-01-06 13:38 | Emergency (ER) | payer MEDICAID ==
--- NOTE | 2022-01-06 15:05 | Emergency Department Report ---
ED General Adult HPI - General Chief complaint: High BP Stated complaint: HYPERTENSION Time Seen by Provider: 01/06/22 14:19 Source: patient, EMS Mode of arrival: Stretcher Limitations: No Limitations - History of Present Illness Initial comments: 31-year-old female with a past medical history of hypertension, diabetes, end- stage renal disease on dialysis (Sunday, Sunday, Sunday) presents to the hospital with complaints of elevated blood pressure. Patient denies any symptoms of headache, chest pain, or shortness of breath. Patient recently had change in her current blood pressure medications. She was originally prescribed metoprolol 50 mg daily and olmesartan daily. Patient was having bad nausea with decreased p.o. intake secondary to olmesartan so her medications were adjusted. 4 days ago her metoprolol was increased to 100 mg daily, olmesartan was discontinued, and she was written a prescription for amlodipine 10 mg. Unfortunately the amlodipine has not been available at the [facility] so she has only been taking the metoprolol daily. This morning her blood pressure was elevated with metoprolol prior to dialysis, she took another dose during dialysis due to hypotension, he received clonidine 0.2 mg prior to ED arrival but persistent elevated BP. Patient states that her baseline her systolic pressure ranges from 130-160. Patient did complete her dialysis prior to arrival. Photoengraving Finisher: Dr. Weber Severity scale (0 -10): 8 - Related Data Home Medications Medication Instructions Recorded Confirmed Last Taken hydrALAZINE [Apresoline TAB] 50 mg PO BID 02/13/18 09/14/21 08/04/20 Metoprolol Xl [Metoprolol 50 mg PO QDAY 11/04/18 09/14/21 09/13/21 10:00 SUCCINATE ER TAB] Insulin NPH Human Isophane 10 unit SQ [facility] 04/06/19 09/14/21 09/13/21 18:00 [HumuLIN N] Insulin Regular, Human [HumuLIN R] See Protocol SQ [facility] 04/06/19 09/14/21 08/05/20 Previous Rx's Medication Instructions Recorded Last Taken Type Ondansetron [Zofran ODT TAB] 4 mg PO Q8HR PRN #14 tab.rapdis 08/29/21 Unknown Rx oxyCODONE /ACETAMINOPHEN [Percocet 1 tab PO Q6HR PRN #10 tablet 08/29/21 Unknown Rx 5/325 mg] Aspirin EC [Halfprin EC] 81 mg PO QDAY #30 tablet.dr 09/15/21 Unknown Rx AtorvaSTATin [Lipitor] 40 mg PO QHS #30 tablet 09/15/21 Unknown Rx Acetaminophen/Codeine [Tylenol 1 tab PO Q6H PRN #10 tab 10/18/21 Unknown Rx /Codeine # 3 tab] Benzonatate [Tessalon Perles] 100 mg PO Q8HR PRN #10 capsule 10/18/21 Unknown Rx Ondansetron [Zofran Odt] 4 mg PO Q8HR PRN #12 tab.rapdis 10/18/21 Unknown Rx Promethazine [Phenergan] 25 mg NE Q6HR PRN #8 supp.rect 10/18/21 Unknown Rx Allergies Allergy/AdvReac Type Severity Reaction Status Date / Time shellfish derived Allergy Severe Angioedema Verified 12/11/18 09:58 metoclopramide [From Reglan] Allergy Intermediate Itching Verified 09/14/21 22:37 hydrocodone Allergy Unknown Verified 04/06/19 10:25 tramadol Allergy Unknown Verified 03/29/21 16:11 ED Review of Systems ROS: Stated complaint: HYPERTENSION Other details as noted in HPI Comment: All other systems reviewed and negative ED Past Medical Hx - Past Medical History Previous Medical History?: Yes Hx Hypertension: Yes Hx Congestive Heart Failure: No Hx Diabetes: Yes (type 1 (insulin)) Hx Deep Vein Thrombosis: No Hx Renal Disease: Yes (ESRD HD Q m/w/f) Hx Seizures: Yes Hx Asthma: No Hx COPD: No Hx HIV: No Additional medical history: gastroparesis - Surgical History Hx Pacemaker: No Hx Internal Defibrillator: No Hx Cholecystectomy: Yes Additional Surgical History: Cataract surgery-bilat. 2012. vas cath right chest wall. left upper arm fistula - Social History Smoking Status: Never Smoker - Medications Home Medications: Home Medications Medication Instructions Recorded Confirmed Last Taken Type hydrALAZINE [Apresoline TAB] 50 mg PO BID 02/13/18 09/14/21 08/04/20 History Metoprolol Xl [Metoprolol 50 mg PO QDAY 11/04/18 09/14/21 09/13/21 10:00 History SUCCINATE ER TAB] Insulin NPH Human Isophane 10 unit SQ [facility] 06/12/2409/14/21 09/13/21 18:00 History [HumuLIN N] Insulin Regular, Human [HumuLIN R] See Protocol SQ [facility] 04/06/19 09/14/21 08/05/20 History Ondansetron [Zofran ODT TAB] 4 mg PO Q8HR PRN #14 tab.rapdis 08/29/21 09/14/21 Unknown Rx oxyCODONE /ACETAMINOPHEN [Percocet 1 tab PO Q6HR PRN #10 tablet 08/29/21 09/14/21 Unknown Rx 5/325 mg] Aspirin EC [Halfprin EC] 81 mg PO QDAY #30 tablet.dr 09/15/21 Unknown Rx AtorvaSTATin [Lipitor] 40 mg PO QHS #30 tablet 09/15/21 Unknown Rx Acetaminophen/Codeine [Tylenol 1 tab PO Q6H PRN #10 tab 10/18/21 Unknown Rx /Codeine # 3 tab] Benzonatate [Tessalon Perles] 100 mg PO Q8HR PRN #10 capsule 10/18/21 Unknown Rx Ondansetron [Zofran Odt] 4 mg PO Q8HR PRN #12 tab.rapdis 10/18/21 Unknown Rx Promethazine [Phenergan] 25 mg NE Q6HR PRN #8 supp.rect 10/18/21 Unknown Rx ED Physical Exam - General Limitations: No Limitations - Other Other exam information: General: No acute distress Head: Atraumatic Eyes: normal appearance ENT: Moist mucous membranes Neck: Normal appearance, no midline tenderness Chest: Clear to auscultation bilaterally CV: Regular rate and rhythm, left arm AV dialysis access with positive thrill Abdomen: Soft, normal bowel sounds, nontender, nondistended, no rebound or guarding Back: Normal inspection Extremity: Normal inspection, full range of motion Neuro: Alert O x 3, no facial asymmetry, speech clear, no gross motor sensory deficit Psych: Appropriate behavior Skin: No rash ED Course Vital Signs 01/06/22 01/06/22 13:59 14:31 Temperature 97.5 F L Pulse Rate 71 70 Respiratory 12 16 Rate Blood Pressure 192/102 191/98 [Left] O2 Sat by Pulse 95 97 Oximetry - Reevaluation(s) Reevaluation #1: 01/06/22 16:08 bp currently 170/93 ED Medical Decision Making - Medical Decision Making 31-year-old female presents to the hospital with asymptomatic hypertension. Patient had recent changes to her medication and was unable to take her Norvasc since it was not yet available at the pharmacy. Patient had metoprolol 100 mg x 2 and clonidine 0.2 mg prior to ED arrival. Patient was observed and had further improvement in her BP prior to discharge. Patient has denied headache, chest pain, or shortness of breath and has been able to complete her dialysis prior to arrival. Patient now states that her Norvasc is ready at [facility] and plans to potato picker and start this medication upon discharge Critical Care Time: No Critical care attestation.: If time is entered above; I have spent that time in minutes in the direct care of this critically ill patient, excluding procedure time. ED Disposition Clinical Impression: Asymptomatic hypertension, Drug not taken because out of stock, Noncompliance with medication regimen, ESRD (end stage renal disease) on dialysis Disposition: 01 HOME / SELF CARE / HOMELESS Is pt being admited?: No Does the pt Need Aspirin: No Condition: Stable Instructions: Hypertension (ED), Managing Your Hypertension Additional Instructions: Take the medication as prescribed (start your Norvasc). Follow-up with your doctor or doctor/clinic provided. Return if symptoms worsen as indicated by your discharge instructions. Referrals: KODI RIGGS MD [Staff Physician] - 3-5 Days Time of Disposition: 16:12
[2022-01-06 17:00] VITALS: BP 161/87
== END 2022-01-06 16:40 | disposition home or self-care (01) ==
LOC: ED 13:38
DX: I12.0 Hypertensive chronic kidney disease with stage 5 chronic kidney disease or end stage renal disease (principal); E10.22 Type 1 diabetes mellitus with diabetic chronic kidney disease; N18.6 End stage renal disease; Z99.2 Dependence on renal dialysis; Z91.14 Patient's other noncompliance with medication regimen; Z79.4 Long term (current) use of insulin; Z88.5 Allergy status to narcotic agent; Z88.6 Allergy status to analgesic agent; Z91.013 Allergy to seafood
CPT/HCPCS: 99283

== ENCOUNTER 2022-03-16 14:42 | Emergency (ER) | payer MEDICAID ==
[2022-03-16] MEDS ORDERED: METOCLOPRAMIDE 10 MG/2 ML INJ IV ONE (15:32)
[2022-03-16] MEDS ORDERED: fentaNYL 100 MCG/2 ML INJ IV ONE (15:32)
--- NOTE | 2022-03-16 15:39 | Emergency Department Report ---
HPI - General Chief Complaint: Nausea/Vomiting/Diarrhea Time Seen by Provider: 03/16/22 15:21 - HPI HPI: Room 17 Patient is 31-year-old female present with chief complaint of nausea vomiting headache. Patient states she has had nausea vomiting for the past 3 days. Patient states she had occipital headache for the past 2 days. Patient describes the pain as sharp in nature. Patient denies any preceding trauma or history of fever. Patient currently gives her headache a score of 8/10 ED Past Medical Hx - Past Medical History Hx Hypertension: Yes Hx Diabetes: Yes (type 1 (insulin)) Hx Renal Disease: Yes (ESRD HD Q m/w/f) Hx Seizures: Yes Additional medical history: gastroparesis - Surgical History Hx Cholecystectomy: Yes Additional Surgical History: Cataract surgery-bilat. 2012. vas cath right chest wall. left upper arm fistula - Family History Family history: no significant - Social History Smoking Status: Never Smoker Substance Use Type: None - Medications Home Medications: Home Medications Medication Instructions Recorded Confirmed Last Taken Type hydrALAZINE [Apresoline TAB] 50 mg PO BID 02/13/18 09/14/21 08/04/20 History Metoprolol Xl [Metoprolol 50 mg PO QDAY 11/04/18 09/14/21 09/13/21 10:00 History SUCCINATE ER TAB] Insulin NPH Human Isophane 10 unit SQ [facility] 04/06/19 09/14/21 09/13/21 18:00 History [HumuLIN N] Insulin Regular, Human [HumuLIN R] See Protocol SQ [facility] 04/06/19 09/14/21 08/05/20 History Ondansetron [Zofran ODT TAB] 4 mg PO Q8HR PRN #14 tab.rapdis 08/29/21 09/14/21 Unknown Rx oxyCODONE /ACETAMINOPHEN [Percocet 1 tab PO Q6HR PRN #10 tablet 08/29/21 09/14/21 Unknown Rx 5/325 mg] Aspirin EC [Halfprin EC] 81 mg PO QDAY #30 tablet. 09/15/21 Unknown Rx AtorvaSTATin [Lipitor] 40 mg PO QHS #30 tablet 09/15/21 Unknown Rx Acetaminophen/Codeine [Tylenol 1 tab PO Q6H PRN #10 tab 10/18/21 Unknown Rx /Codeine # 3 tab] Benzonatate [Tessalon Perles] 100 mg PO Q8HR PRN #10 capsule 10/18/21 Unknown Rx Ondansetron [Zofran Odt] 4 mg PO Q8HR PRN #12 tab.rapdis 10/18/21 Unknown Rx Promethazine [Phenergan] 25 mg [place] Q6HR PRN #8 supp.rect 10/18/21 Unknown Rx Butalb/Acetamin/Caff 50-325-40 2 tab PO Q8HR PRN #10 tablet 03/16/22 Unknown Rx [Fioricet 50-325-40] Ondansetron [Zofran ODT TAB] 8 mg PO Q8HR #20 tab.rapdis 03/16/22 Unknown Rx ED Review of Systems ROS: Stated complaint: NAUSEA/VOMITTING Other details as noted in HPI Constitutional: no symptoms reported Eyes: denies: eye pain ENT: denies: throat pain Respiratory: no symptoms reported Cardiovascular: denies: chest pain Endocrine: no symptoms reported Gastrointestinal: nausea, vomiting Musculoskeletal: denies: back pain Neurological: headache Physical Exam - Physical Exam Vital Signs: Vital Signs 03/16/22 03/16/22 03/16/22 14:45 15:01 15:15 Temperature 97.8 F Pulse Rate 98 H 90 Respiratory 16 17 Rate Blood Pressure 240/100 [Left] O2 Sat by Pulse 98 95 99 Oximetry 03/16/22 03/16/22 15:16 15:21 Temperature 97.6 F Pulse Rate 89 89 Respiratory 33 H 12 Rate Blood Pressure [Left] O2 Sat by Pulse 98 100 Oximetry Vital Signs 03/16/22 03/16/22 03/16/22 14:45 15:01 15:15 Temperature 97.8 F Pulse Rate 98 H 90 Respiratory 16 17 Rate Blood Pressure Blood Pressure 240/100 [Left] O2 Sat by Pulse 98 95 99 Oximetry 03/16/22 03/16/22 03/16/22 15:16 15:21 15:30 Temperature 97.6 F Pulse Rate 89 89 100 H Respiratory 33 H 12 22 Rate Blood Pressure 199/116 Blood Pressure [Left] O2 Sat by Pulse 98 100 96 Oximetry 03/16/22 03/16/22 03/16/22 15:46 16:00 16:16 Temperature Pulse Rate 86 84 85 Respiratory 12 16 16 Rate Blood Pressure 217/118 145/83 145/83 Blood Pressure [Left] O2 Sat by Pulse 78 L 98 99 Oximetry 03/16/22 16:30 Temperature Pulse Rate 87 Respiratory 16 Rate Blood Pressure 145/83 Blood Pressure [Left] O2 Sat by Pulse 99 Oximetry Physical Exam: GENERAL: The patient is well-developed well-nourished female lying on stretcher appearing to be in mild disc HEENT: Normocephalic. Atraumatic. Extraocular motions are intact. Patient has moist mucous membranes. NECK: Supple. No meningitic signs are noted. No nuchal rigidity. CHEST/LUNGS: Clear to auscultation. There is no respiratory distress noted. HEART/CARDIOVASCULAR: Regular. There is no tachycardia. There is no gallop rub or murmur. ABDOMEN: Abdomen is soft, nontender. Patient has normal bowel sounds. There is no abdominal distention. SKIN: There is no rash. There is no edema. There is no diaphoresis. NEURO: The patient is awake, alert, and oriented. The patient is cooperative. The patient has no focal neurologic deficits. The patient has normal speech. Cranial nerves II through XII grossly intact MUSCULOSKELETAL: There is no evidence of acute injury. ED Course Vital Signs 03/16/22 03/16/22 03/16/22 14:45 15:01 15:15 Temperature 97.8 F Pulse Rate 98 H 90 Respiratory 16 17 Rate Blood Pressure 240/100 [Left] O2 Sat by Pulse 98 95 99 Oximetry 03/16/22 03/16/22 15:16 15:21 Temperature 97.6 F Pulse Rate 89 89 Respiratory 33 H 12 Rate Blood Pressure [Left] O2 Sat by Pulse 98 100 Oximetry - Reevaluation(s) Reevaluation #1: 03/16/22 17:12 Patient improved ED Medical Decision Making - Lab Data Result diagrams: 03/16/22 16:03 03/16/22 16:03 - Radiology Data Radiology results: report reviewed (CT head), image reviewed (CT head) [facility] [address] [place] [address] Cat Scan Report Signed Patient: LIZBETH VIZCAINO MR# : [id number] : 1990 Acct:[id number] Age/Sex: 31 / F ADM Date: 03/16/22 Loc: ED Attending Dr: Ordering Physician: ELAINA GIULLEN MD Date of Service: 03/16/22 Procedure(s): CT head/brain wo con Accession Number(s): [id number] cc: ELAINA GUILLEN MD CT head/brain wo con INDICATION: Hypertension, headache. TECHNIQUE: Routine CT head. All CT scans at this location are performed using CT dose reduction for ALARA by means of automated exposure control. COMPARISON: MRI brain 09/15/2021 FINDINGS: Intracranial: Jacobs-white matter differentiation is maintained. No intracranial hemorrhage. No extra axial collection. No hydrocephalus. No herniation. Sinuses: Mild mucosal thickening in the maxillary sinuses. Paranasal sinuses and mastoid air cells are otherwise essentially clear. Orbits: Globes are intact. Calvarium: No acute fracture. IMPRESSION: 1. No acute intracranial abnormality. Signer Name: Spenser Azar MD Signed: 03/16/2022 4:59 PM Workstation Name: [id number] Transcribed By: CS Dictated By: Spenser Azar MD Electronically Authenticated By: Spenser Azar MD Signed Date/Time: 03/16/221658 DD/ 57 TD/TT: - Differential Diagnosis Hypertensive urgency, hypertensive emergency, gastroparesis, Critical care attestation.: If time is entered above; I have spent that time in minutes in the direct care of this critically ill patient, excluding procedure time. ED Disposition Clinical Impression: Hypertensive urgency Disposition: 01 HOME / SELF CARE / HOMELESS Is pt being admited?: No Does the pt Need Aspirin: No Condition: Stable Instructions: Hypertension, Adult, [id number], Managing Your Hypertension Additional Instructions: Return to the emergency department should you develop worsening symptoms, inability to tolerate food or liquids, high fever or any other concerns Prescriptions: Butalb/Acetamin/Caff 50-325-40 [Fioricet 50-325-40] 2 tab PO Q8HR PRN #10 tablet PRN Reason: Headache Ondansetron [Zofran ODT TAB] 8 mg PO Q8HR #20 tab.rapdis Referrals: KODI RIGGS MD [Staff Physician] - [place] Time of Disposition: 17:14
[2022-03-16 16:32] VITALS: BP 145/83
[2022-03-16 16:35] LABS: Eosinophils # (Auto) 0.1 K/mm3 (0.0-0.4); Eosinophils % (Auto) 1.9 % (0.0-4.3); Monocytes # (Auto) 0.6 K/mm3 (0.0-0.8); Monocytes % (Auto) 11.1 % (0.0-7.3)
[2022-03-16 16:44] LABS: Basophils % (Auto) 1.2 % (0.0-1.8); Hematocrit 34.9 % (30.3-42.9); Hemoglobin 10.6 gm/dl (10.1-14.3); Lymphocytes % (Auto) 20.4 % (13.4-35.0); Mean Corpuscular HGB Conc 30 % (30-34); Mean Corpuscular Volume 88 fl (79-97); Platelet Count 124 K/mm3 (140-440); Red Blood Count 3.96 M/mm3 (3.65-5.03)
[2022-03-16 16:55] LABS: Albumin 4.2 g/dL (3.9-5); Calcium 9.9 mg/dL (8.4-10.2)
[2022-03-16 16:57] LABS: INR 1.05 (0.87-1.13)
[2022-03-16 16:58] LABS: Partial Thromboplastin Time 27.9 Sec. (24.2-36.6)
--- NOTE | 2022-03-16 17:04 | Cat Scan Report ---
CT head/brain wo con INDICATION: Hypertension, headache. TECHNIQUE: Routine CT head. All CT scans at this location are performed using CT dose reduction for A YIMI by means of automated exposure control. COMPARISON: MRI brain 09/15/2021 FINDINGS: Intracranial: Jacobs-white matter differentiation is maintained. No intracranial hemorrhage. No extra a xial collection. No hydrocephalus. No herniation. Sinuses: Mild mucosal thickening in the maxillary sinuses. Paranasal sinuses and mastoid air cells ar e otherwise essentially clear. Orbits: Globes are intact. Calvarium: No acute fracture. IMPRESSION: 1. No acute intracranial abnormality. Signer Name: Spenser Azar MD Signed: 03/16/2022 4:59 PM Workstation Name: [id number]
== END 2022-03-16 17:50 | disposition home or self-care (01) ==
LOC: ED 14:42
DX: I16.0 Hypertensive urgency (principal); E11.9 Type 2 diabetes mellitus without complications; Z90.49 Acquired absence of other specified parts of digestive tract
CPT/HCPCS: 36415; 70450; 80053; 83690; 84703; 85025; 85610; 85730; 96374; 96375; 99284; J2765; J3010; J3490

== ENCOUNTER 2022-03-19 01:26 | Emergency (ER) | payer MEDICAID ==
--- NOTE | 2022-03-19 01:31 | Emergency Department Report ---
ED General Adult HPI - General Stated complaint: N/V Time Seen by Provider: 03/19/22 01:28 - History of Present Illness Initial comments: Patient presents with complaints of diarrhea x 3 days (multiple bouts) without blood or mucus. Endorses non bloody, non bilious emesis. Denies recent travel, known sick contacts, antibiotics, eating out or any unusual or reheated foods. Endorses L sided abdominal pain. Has a hx of ESRD. Went for her dialysis yester day. - Related Data Home Medications Medication Instructions Recorded Confirmed Last Taken hydrALAZINE [Apresoline TAB] 50 mg PO BID 02/13/18 09/14/21 08/04/20 Metoprolol Xl [Metoprolol 50 mg PO QDAY 11/04/18 09/14/21 09/13/21 10:00 SUCCINATE ER TAB] Insulin NPH Human Isophane [address] [facility] 04/06/19 09/14/21 09/13/21 18:00 [HumuLIN N] Insulin Regular, Human [HumuLIN R] See Protocol SQ [facility] 04/06/19 09/14/21 08/05/20 Previous Rx's Medication Instructions Recorded Last Taken Type Ondansetron [Zofran ODT TAB] 4 mg PO Q8HR PRN #14 tab.rapdis 08/29/21 Unknown Rx oxyCODONE /ACETAMINOPHEN [Percocet 1 tab PO Q6HR PRN #10 tablet 08/29/21 Unknown Rx 5/325 mg] Aspirin EC [Halfprin EC] 81 mg PO QDAY #30 tablet. 09/15/21 Unknown Rx AtorvaSTATin [Lipitor] 40 mg PO QHS #30 tablet 09/15/21 Unknown Rx Acetaminophen/Codeine [Tylenol 1 tab PO Q6H PRN #10 tab 10/18/21 Unknown Rx /Codeine # 3 tab] Benzonatate [Tessalon Perles] 100 mg PO Q8HR PRN #10 capsule 10/18/21 Unknown Rx Ondansetron [Zofran Odt] 4 mg PO Q8HR PRN #12 tab.rapdis 10/18/21 Unknown Rx Promethazine [Phenergan] 25 mg AR Q6HR PRN #8 supp.rect 10/18/21 Unknown Rx Butalb/Acetamin/Caff 50-325-40 2 tab PO Q8HR PRN #10 tablet 05/12/22 Unknown Rx [Fioricet 50-325-40] Ondansetron [Zofran ODT TAB] 8 mg PO Q8HR #20 tab.rapdis 03/16/22 Unknown Rx Azithromycin 1 tab PO DAILY 3 Days #3 tab 03/19/22 Unknown Rx Ondansetron [Zofran ODT TAB] 1 tab SL Q8HR PRN 3 Days #9 03/19/22 Unknown Rx tab.rapdis Allergies Allergy/AdvReac Type Severity Reaction Status Date / Time shellfish derived Allergy Severe Angioedema Verified 03/16/22 14:48 metoclopramide [From Reglan] Allergy Intermediate Itching Verified 03/16/22 14:48 hydrocodone Allergy Unknown Verified 03/16/22 14:48 tramadol Allergy Unknown Verified 03/16/22 14:48 ED Review of Systems ROS: Stated complaint: N/V Other details as noted in HPI Comment: All other systems reviewed and negative Constitutional: denies: chills, fever ED Past Medical Hx - Past Medical History Hx Hypertension: Yes Hx Congestive Heart Failure: No Hx Diabetes: Yes (type 1 (insulin)) Hx Deep Vein Thrombosis: No Hx Renal Disease: Yes (ESRD HD Q m/w/f) Hx Seizures: Yes Hx Asthma: No Hx COPD: No Hx HIV: No Additional medical history: gastroparesis - Surgical History Hx Pacemaker: No Hx Internal Defibrillator: No Hx Cholecystectomy: Yes Additional Surgical History: Cataract surgery-bilat. 2012. vas cath right chest wall. left upper arm fistula - Social History Smoking Status: Never Smoker Substance Use Type: None - Medications Home Medications: Home Medications Medication Instructions Recorded Confirmed Last Taken Type hydrALAZINE [Apresoline TAB] 50 mg PO BID 02/13/18 09/14/21 08/04/20 History Metoprolol Xl [Metoprolol 50 mg PO QDAY 11/04/18 09/14/21 09/13/21 10:00 History SUCCINATE ER TAB] Insulin NPH Human Isophane [address] [facility] 04/06/19 09/14/21 09/13/21 18:00 History [HumuLIN N] Insulin Regular, Human [HumuLIN R] See Protocol SQ [facility] 04/06/19 09/14/21 08/05/20 History Ondansetron [Zofran ODT TAB] 4 mg PO Q8HR PRN #14 tab.rapdis 08/29/21 09/14/21 Unknown Rx oxyCODONE /ACETAMINOPHEN [Percocet 1 tab PO Q6HR PRN #10 tablet 08/29/21 09/14/21 Unknown Rx 5/325 mg] Aspirin EC [Halfprin EC] 81 mg PO QDAY #30 tablet.dr 09/15/21 Unknown Rx AtorvaSTATin [Lipitor] 40 mg PO QHS #30 tablet 09/15/21 Unknown Rx Acetaminophen/Codeine [Tylenol 1 tab PO Q6H PRN #10 tab 10/18/21 Unknown Rx /Codeine # 3 tab] Benzonatate [Tessalon Perles] 100 mg PO Q8HR PRN #10 capsule 10/18/21 Unknown Rx Ondansetron [Zofran Odt] 4 mg PO Q8HR PRN #12 tab.rapdis 10/18/21 Unknown Rx Promethazine [Phenergan] 25 mg AR Q6HR PRN #8 supp.rect 10/18/21 Unknown Rx Butalb/Acetamin/Caff 50-325-40 2 tab PO Q8HR PRN #10 tablet 03/16/22 Unknown Rx [Fioricet 50-325-40] Ondansetron [Zofran ODT TAB] 8 mg PO Q8HR #20 tab.rapdis 03/16/22 Unknown Rx Azithromycin 1 tab PO DAILY 3 Days #3 tab 03/19/22 Unknown Rx Ondansetron [Zofran ODT TAB] 1 tab SL Q8HR PRN 3 Days #9 03/19/22 Unknown Rx tab.rapdis ED Physical Exam - General General appearance: alert, in no apparent distress, other (retching on stop) - Head Head exam: Present: atraumatic, normocephalic - Eye Eye exam: Present: PERRL, EOMI - ENT ENT exam: Present: mucous membranes moist, other (airway patent) - Neck Neck exam: Present: other (supple; no JVD) - Respiratory Respiratory exam: Present: other (good air entry, nml I:E, CTAB, no use of FRANCHESCA) - Cardiovascular Cardiovascular Exam: Present: regular rate. Absent: rubs, gallop - GI/Abdominal GI/Abdominal exam: Present: other (soft; non distended; tender to palpation in LUQ, L flank and LLQ; no rebound tenderness or involuntary guarding) - Extremities Exam Extremities exam: Present: other (no lower extremity edema; non tender calves; neg Arthur's sign bilaterally) - Back Exam Back exam: Present: full ROM. Absent: CVA tenderness (R), CVA tenderness (L) - Neurological Exam Neurological exam: Present: alert, oriented X3, CN II-XII intact. Absent: motor sensory deficit - Skin Skin exam: Present: warm, normal color ED Course Vital Signs 03/19/22 03/19/22 03/19/22 01:36 01:48 02:00 Temperature 98 F Pulse Rate 100 H 89 Respiratory 18 16 Rate Blood Pressure 210/108 225/116 Blood Pressure [Left] O2 Sat by Pulse 100 95 95 Oximetry 03/19/22 03/19/22 03/19/22 05:01 05:20 06:18 Temperature Pulse Rate 88 95 H 92 H Respiratory 12 12 Rate Blood Pressure 189/103 Blood Pressure 189/103 223/117 [Left] O2 Sat by Pulse 95 98 Oximetry 03/19/22 03/19/22 03/19/22 06:30 07:01 07:21 Temperature Pulse Rate 92 H 89 91 H Respiratory 12 Rate Blood Pressure 223/117 219/114 Blood Pressure 203/108 [Left] O2 Sat by Pulse 100 Oximetry 03/19/22 08:31 Temperature 97.2 F L Pulse Rate 94 H Respiratory 16 Rate Blood Pressure Blood Pressure 159/83 [Left] O2 Sat by Pulse 98 Oximetry ED Medical Decision Making - Lab Data Result diagrams: 03/19/22 01:54 03/19/22 01:54 Laboratory Tests 03/19/22 03/19/22 03/19/22 01:54 01:54 01:54 WBC 5.4 RBC 4.49 Hgb 12.4 Hct 39.2 MCV 87 MCH 28 MCHC 32 RDW 20.1 H Plt Count 169 Lymph % (Auto) 15.3 [place] % (Auto) 7.6 H Eos % (Auto) 3.4 Baso % (Auto) 1.6 Lymph # (Auto) 0.8 L [place] # (Auto) 0.4 Eos # (Auto) 0.2 Baso # (Auto) 0.1 Seg Neutrophils % 72.1 H Seg Neutrophils # 3.9 Sodium 142 Potassium 4.7 Chloride 92.2 L Carbon Dioxide 24 Anion Gap 31 BUN 41 H Creatinine 10.0 H Estimated GFR 6 BUN/Creatinine Ratio 4 Glucose 166 H Calcium 11.3 H Total Bilirubin 0.60 AST 18 ALT 15 Alkaline Phosphatase 121 Total Protein 8.8 H Albumin 4.7 Albumin/Globulin Ratio 1.1 Lipase 14 HCG, Qual Negative CT abd/pelvis: no acute intraabdominal process - Medical Decision Making Likely 2/2 gastroenteritis (possibly bacterial, given duration) superimposed on gastroparesis. No signs of acute surgical abdomen @ this time. Need to r/o COVID-19 as an outpatient (testing not done at this facility for discharged diomedes levin). Patient received zofran 4 mg IV x 1, dilaudid 1 mg IV x 1, labetalol 5 mg IV x 2. Repeat BP 159/83 Critical care attestation.: If time is entered above; I have spent that time in minutes in the direct care of this critically ill patient, excluding procedure time. ED Disposition Clinical Impression: Diarrhea, Nausea and vomiting, Abdominal pain Disposition: HOME / SELF CARE / HOMELESS Is pt being admited?: No Does the pt Need Aspirin: No Condition: Stable Instructions: Abdominal Pain, Adult, [id number], Nausea and Vomiting, Adult Additional Instructions: Follow up with your regular doctor within 2-3 days. Return to the ER if your symptoms worsen. Go to the nearest outpatient testing center to get tested for COVID-19. Prescriptions: Azithromycin 1 tab PO DAILY 3 Days #3 tab Ondansetron [Zofran ODT TAB] 1 tab SL Q8HR PRN 3 Days #9 tab.rapdis PRN Reason: Nausea And Vomiting Referrals: DOMINIQUE PALMER MD [Primary Care Provider] - 3-5 Days Time of Disposition: 04:37
[2022-03-19] MEDS ORDERED: ONDANSETRON 4 MG/2 ML INJ IV ONE ×2 (01:32→02:52)
[2022-03-19] MEDS ORDERED: KETOROLAC 60 MG/2 ML INJ IM ONE (01:51)
[2022-03-19 02:43] LABS: Basophils # (Auto) 0.1 K/mm3 (0.0-0.1); Basophils % (Auto) 1.6 % (0.0-1.8); Eosinophils # (Auto) 0.2 K/mm3 (0.0-0.4); Eosinophils % (Auto) 3.4 % (0.0-4.3); Hematocrit 39.2 % (30.3-42.9); Hemoglobin 12.4 gm/dl (10.1-14.3); Lymphocytes # (Auto) 0.8 K/mm3 (1.2-5.4); Lymphocytes % (Auto) 15.3 % (13.4-35.0); Mean Corpuscular HGB Conc 32 % (30-34); Mean Corpuscular Volume 87 fl (79-97); Monocytes # (Auto) 0.4 K/mm3 (0.0-0.8); Monocytes % (Auto) 7.6 % (0.0-7.3); Red Blood Count 4.49 M/mm3 (3.65-5.03)
[2022-03-19 02:49] LABS: Red Cell Distribution Width 20.1 % (13.2-15.2)
[2022-03-19 02:50] LABS: Platelet Count 169 K/mm3 (140-440)
[2022-03-19 03:05] LABS: Albumin 4.7 g/dL (3.9-5); Calcium 11.3 mg/dL (8.4-10.2)
--- NOTE | 2022-03-19 04:16 | Cat Scan Report ---
CT ABDOMEN AND PELVIS WITHOUT CONTRAST INDICATION / CLINICAL INFORMATION: LLQ pain. TECHNIQUE: Axial CT images were obtained through the abdomen and pelvis without IV contrast. All CT scans at this location are performed using CT dose reduction for ALARA by means of automated exposure control. COMPARISON: CT from 08/25/2021. FINDINGS: LOWER CHEST: There is cardiomegaly with moderate right pleural effusion and bibasilar edema and atele ctasis. LIVER: No significant abnormality GALLBLADDER/BILIARY TREE: Cholecystectomy. PANCREAS: No significant abnormality SPLEEN: No significant abnormality ADRENALS: No significant abnormality KIDNEYS: Prominent bilateral renal atrophy. No acute abnormality. URINARY BLADDER: Bladder is partially decompressed, though grossly unremarkable. REPRODUCTIVE ORGANS: No significant abnormality STOMACH / BOWEL: No evidence of bowel obstruction or inflammation. Normal appendix. LYMPH NODES: No significant adenopathy. VASCULATURE: No significant abnormality. OTHER: Nodule within the subcutaneous fat of the right lower abdominal/pelvic wall now measures 2.3 x 1.5 cm, unchanged from CT from 08/25/2021. SKELETAL SYSTEM: No acute osseous findings. IMPRESSION: 1. Cardiomegaly with moderate right pleural effusion and bibasilar edema and atelectasis. 2. No acute findings of the abdomen or pelvis. No evidence of bowel obstruction or localized inflamma tion. 3. Stable nodule within the subcutaneous fat of the right lower abdominal/pelvic wall. This is nonspe cific and may reflect endometriosis or seroma at the site of scarring. 4. Nonspecific bilateral renal atrophy. No acute abnormality. Signer Name: Enrico Bustillo MD Signed: 03/19/2022 4:12 AM Workstation Name: [id number]
[2022-03-19] MEDS ORDERED: HYDROmorphone 1 MG/1 ML INJ IV ONE (04:26)
[2022-03-19] MEDS ORDERED: hydrALAZINE 20 MG/1 ML INJ IV ONE (07:17)
[2022-03-19] MEDS ORDERED: diphenhydrAMINE 50 MG/ML VIAL IV ONE ×2 (07:18→08:16)
[2022-03-19 08:32] VITALS: BP 159/83
== END 2022-03-19 08:30 | disposition home or self-care (01) ==
LOC: ED 01:26
DX: R19.7 Diarrhea, unspecified (principal); R11.2 Nausea with vomiting, unspecified; R10.9 Unspecified abdominal pain; I12.0 Hypertensive chronic kidney disease with stage 5 chronic kidney disease or end stage renal disease; E10.22 Type 1 diabetes mellitus with diabetic chronic kidney disease; N18.6 End stage renal disease; R56.9 Unspecified convulsions; Z98.890 Other specified postprocedural states; Z88.5 Allergy status to narcotic agent; Z88.8 Allergy status to other drugs, medicaments and biological substances; Z91.013 Allergy to seafood
CPT/HCPCS: 36415; 74176; 80053; 83690; 84703; 85025; 96374; 96375; 96376; 99284; J0360; J1170; J1200; J1885; J2405; J3490